=== PATIENT | female | born 1945 | race Two or more races ===

== ENCOUNTER → 2016-09-19 | Outpatient (CLI) | payer MEDICARE, MEDICAID ==
--- NOTE | 2016-09-19 16:59 | DIREP ---
PROCEDURE:Digital Screening Mammogram TECHNIQUE:MLO, CC, and cleavage digital images of each breast are provided. Computer Assisted Detection (CAD) was utilized. COMPARISON:[facility], , DIGITAL MAMMO SCREENING, 03/13/2012, 01:27 PM. INDICATIONS:SCREENING BREAST COMPOSITION:There are scattered areas of fibroglandular density. FINDINGS:There are no grouped microcalcifications, masses, or architectural distortions to suggest malignancy. There is no significant change as compared with the previous examination(s). IMPRESSION:No mammographic evidence of malignancy. RECOMMENDATIONS:Routine Screening Mammography per [employer] [place] [employer] guidelines. OVERALL FINAL ASSESSMENT:BI-RADS 1 - Negative Mammogram Note: This facility participates in a mammography screening patient reminder system. Dictated by: Calixto Ayala M.D. on 09/19/2016 at 04:58 PM
== END | disposition home or self-care (01) ==
LOC: RAD 15:00
PROVIDERS: ATTEND Family Medicine
DX: Z12.31 Encounter for screening mammogram for malignant neoplasm of breast (principal)
CPT/HCPCS: G0202; 77067

== ENCOUNTER → 2017-04-20 | Outpatient (CLI) | payer MEDICARE, MEDICAID | END | disposition home or self-care (01) | LOC: LAB 12:30 | PROVIDERS: ATTEND Internal Medicine Cardiovascular Disease | DX: I48.0 Paroxysmal atrial fibrillation (principal); E78.2 Mixed hyperlipidemia; I20.8 Other forms of angina pectoris | CPT/HCPCS: 36415; 80061 ==

== ENCOUNTER 2017-05-08 17:23 | Emergency (ER) | payer MEDICARE, MEDICAID ==
[~2017-05-08] VITALS: Ht 149.9 cm; Wt 95.3 kg
[2017-05-08] MEDS ORDERED: ASPIRIN ONE (17:48)
--- NOTE | 2017-05-08 17:48 | PCM.EKG ---
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
[2017-05-08] MEDS ORDERED: ASPIRIN PO PRN (18:00)
--- NOTE | 2017-05-08 18:05 | DIREP ---
PROCEDURE:CHEST 1 VIEW COMPARISON:[facility], CR, XRAY CHEST 2 VWS, 01/13/2016, 12:54 PM. [facility], CR, XRAY ACUTE ABD INCL UPRIGHT CHEST, 07/21/2015, 03:42 PM. INDICATIONS:CHEST PAIN FINDINGS: LUNGS/PLEURA:No significant pulmonary parenchymal abnormalities. No effusions. VASCULATURE:Normal. Unremarkable pulmonary vasculature. CARDIAC:Normal. No cardiac silhouette abnormality or cardiomegaly. MEDIASTINUM:Normal. No visible mass or adenopathy. BONES:Normal. No fracture or visible bony lesion. OTHER:EKG leads overlie the chest. CONCLUSION:No acute cardiopulmonary abnormalities. Dictated by: Eron Stark M.D. on 05/08/2017 at 06:03 PM
[2017-05-08 18:18] LABS: BASOPHIL % 0.4 % (0.0-0.2); EOSINOPHIL # 0.3 10^3/uL (0.0-0.2); EOSINOPHIL % 3.8 % (0.0-5.0); HEMOGLOBIN 12.9 g/dL (12.0-15.0); LYMPHOCYTES # 2.2 10^3/uL (1.0-4.8); LYMPHOCYTES % 30.7 % (24.0-44.0); MEAN CELL HGB CONCENTRATION 31.9 g/dL (33-37); MEAN CORP VOLUME 87.6 fL (78-100); MEAN PLATELET VOLUME 10.2 fL (7.8-11.0); MONOCYTES # 0.6 10^3/uL (0.3-0.8); MONOCYTES % 8.2 % (5.0-12.0); NEUTROPHILS % 56.8 % (41.0-85.0); RED CELL DISTRIBUTION WIDTH 14.9 % (11.5-14.5); WHITE BLOOD CELL 7.1 10^3/uL (4.5-11.0)
--- NOTE | 2017-05-08 18:40 | NUR ---
PT WANTED TO UPDATE ER STAFF THAT SHE WAS HAVING CHEST PAIN, CP CONCERNS DISCUSSED. STATES IT IS THE SAME WHEN SHE CAME TO THE ER AND RATES THE PAIN AT ONE ON A SCALE OF ZERO TO TEN.
[2017-05-08 18:56] LABS: CARBON DIOXIDE 29.1 mmol/L (20.0-32); GLUCOSE 152 mg/dL (70-110)
[2017-05-08 18:57] LABS: ALANINE AMINOTRANSFERASE(ML) 46 U/L (12-78); ALKALINE PHOSPHATASE 95 U/L (50-136); ASPARTATE AMINO TRANSFERASE 31 U/L (0-35); CALCIUM 9.5 mg/dL (8.4-10.5)
--- NOTE | 2017-05-08 19:30 | NUR ---
STATUS PT RESTING, SPOUSE AT BEDSIDE.
--- NOTE | 2017-05-08 20:28 | NUR ---
STATUS DR JACQUES UPDATED ON PT'S STATUS
--- NOTE | 2017-05-08 20:35 | NUR ---
DR JACQUES WITH PT
--- NOTE | 2017-05-08 20:47 | NUR ---
PLAN OF CARE DR JACQUES STATED HE PLANS TO DISCHARGE PATIENT HOME.
--- NOTE | 2017-05-08 20:52 | NUR ---
PT VERBALIZED UNDERSTANDING OF DISCHARGE PLAN, PT AMBULATED TO AND FROM THE BATHROOM WITHOUT DIFFICULTY.
--- NOTE | 2017-05-08 20:59 | NUR ---
OK TO DISCHARGE PT PER DR JACQUES.
--- NOTE | 2017-05-08 21:06 | NUR ---
DISCHARGE DISCHARGE INSTRUCTIONS DISCUSSED. PT VERBALIZED UNDERSTANDING. ENCOURAGED TO RETURN FOR ANY CONCERNS. HOME WITH HER SPOUSE.
[2017-05-08 21:13] VITALS: BP 156/89
--- NOTE | 2017-05-11 09:37 | ER.PDOC ---
General Chief Complaint: Chest Pain-Cardiac Nature Stated Complaint: CHEST PAINS,SOB Time seen by MD: 20:35 Source: patient, family Exam Limitations: no limitations History of Present Illness Timing/Duration: 1-3 hours Severity/Quality: mild Radiation: no radiation Activities at Onset: none Prior CP/Workup: Cardiac Cath Aspirin Today: No Aspirin Today Associated Symptoms: denies symptoms Prior symptoms/Treatment: Similar symptoms previous Allergies: Coded Allergies: No Known Allergies (Unverified , 02/06/17) Past Medical History Medical History: angina, arrhythmia, cardiac problems, diabetes, fibromyalgia, hypertension, thyroid disease Surgical History: appendectomy, back, hysterectomy LMP (females 10-50): postmenopause Social History Smoking: non-smoker Alcohol Use: none Drug Use: none Constitutional: no symptoms reported EENTM: no symptoms reported Respiratory: shortness of breath Cardiovascular: chest pain Gastrointestinal: no symptoms reported Genitourinary: no symptoms reported Musculoskeletal: no symptoms reported Skin: no symptoms reported Psychiatric/Neurological: no symptoms reported Endocrine: no symptoms reported Hematologic/Lymphatic: no symptoms reported Physical Exam General Appearance: No Apparent Distress HEENT: PERRL/EOMI, Normal ENT Inspection, TMs Normal, Pharynx Normal Neck: Non-Tender, Full Range of Motion, Supple, Normal Inspection Respiratory: chest non-tender, lungs clear, normal breath sounds, no respiratory distress, no accessory muscle use Cardiovascular: Normal Peripheral Pulses, Regular Rate, Rhythm, No Edema, No Gallop, No JVD, No Murmur Gastrointestinal: Normal Bowel Sounds, No Organomegaly, No Pulsatile Mass, Non Tender Extremities: Normal Range of Motion, Non-Tender, Normal Inspection, No Pedal Edema, No Calf Tenderness, Normal Capillary Refill 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: 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 NML as Tested, No Motor/Sensory Deficits, Alert, Normal Mood/Affect, Oriented x 3 Skin: Normal Color, Warm/Dry Lymphatic: No Adenopathy #2 EKG: NSR, nonspecific ST T wave chg #2 XRAY: chest (no acute cardiopulmonary abnormality.) Departure Time of Disposition: 21:00 Disposition: 01 HOME, SELF-CARE Impression: Primary Impression: Chest pain Condition: Stable Patient Instructions: Chest Pain (Nonspecific), [id number] Referrals: SHOSHANA GALDAMEZ ASSISTANT STORE MANAGER SALES (PCP) PRIMARY CARE PROVIDER Additional Instructions: IN ER YOU WERE EXAMINED BY THE ER PHYSICIAN LABS: D-DIMER, CBC, CMP, CK, CKMB, TROPONIN, PBNP, PT, PTT, HPYLORI EKG MEDICATION: ASPIRIN 325MG BY MOUTH XRAY: CHEST AT HOME: CALL YOUR LEAD PROGRAMMER ANALYST IN THE A.M. TO ARRANGE FOLLOWUP FOLLOWUP WITH YOUR DOCTOR RETURN TO THE ER FOR ANY CONCERNS Duration or Time Spent with Pa: 45mins JOHN JACQUES MD May 11, 2017 09:36
== END 2017-05-08 21:06 | disposition home or self-care (01) ==
LOC: ER 17:23
DX: R07.9 Chest pain, unspecified (principal); R06.02 Shortness of breath; E07.9 Disorder of thyroid, unspecified; E11.9 Type 2 diabetes mellitus without complications; I10 Essential (primary) hypertension; M79.7 Fibromyalgia; Z79.82 Long term (current) use of aspirin; Z90.710 Acquired absence of both cervix and uterus
CPT/HCPCS: 36415; 71010; 80053; 82550; 82553; 83880; 84484; 85025; 85379; 85610; 85730; 86677; 93005; 99285

== ENCOUNTER 2017-08-27 14:48 | Emergency (ER) | payer MEDICARE, MEDICAID ==
[~2017-08-27] VITALS: Ht 149.9 cm; Wt 90.7 kg
[2017-08-27 14:53] VITALS: BP 116/63
[2017-08-27] MEDS ORDERED: NITROSTAT SL STA (14:54)
--- NOTE | 2017-08-27 14:56 | PCM.EKG ---
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
[2017-08-27] MEDS ORDERED: ASPIRIN ONE (14:59)
[2017-08-27] MEDS ORDERED: ASPIRIN PO PRN (15:00)
[2017-08-27 15:05] LABS: BASOPHIL % 0.4 % (0.0-0.2); EOSINOPHIL # 0.3 10^3/uL (0.0-0.2); EOSINOPHIL % 4.3 % (0.0-5.0); HEMOGLOBIN 13.4 g/dL (12.0-15.0); LYMPHOCYTES # 2.7 10^3/uL (1.0-4.8); LYMPHOCYTES % 36.6 % (24.0-44.0); MEAN CELL HGB 29.6 pg (26-34); MEAN CELL HGB CONCENTRATION 33.3 g/dL (33-37); MEAN PLATELET VOLUME 10.5 fL (7.8-11.0); MONOCYTES # 0.5 10^3/uL (0.3-0.8); MONOCYTES % 7.3 % (5.0-12.0); NEUTROPHIL # 3.7 10^3/uL (1.8-7.7); NEUTROPHILS % 51.4 % (41.0-85.0); RED CELL DISTRIBUTION WIDTH 14.3 % (11.5-14.5); WHITE BLOOD CELL 7.3 10^3/uL (4.5-11.0)
--- NOTE | 2017-08-27 15:12 | DIREP ---
PROCEDURE:CHEST 1 VIEW COMPARISON:[facility], CR, XRAY CHEST SINGLE VW, 05/08/2017, 05:43 PM. INDICATIONS:cp FINDINGS: LUNGS/PLEURA:No significant pulmonary parenchymal abnormalities. No effusions. Slightly shallow expansion of the lungs. The lungs are clear. No pneumonia, heart failure or effusions are seen. VASCULATURE:Normal. Unremarkable pulmonary vasculature. CARDIAC:Normal. No cardiac silhouette abnormality or cardiomegaly. Aorta is tortuous. MEDIASTINUM:Normal. No visible mass or adenopathy. BONES:Normal. No fracture or visible bony lesion. OTHER:Elevated right hemidiaphragm, question eventration. CONCLUSION:Shallow expansion of the lungs, no active disease. Dictated by: Checo Liang MD on 08/27/2017 at 03:10 PM
[2017-08-27 15:31] LABS: ALANINE AMINOTRANSFERASE(ML) 60 U/L (12-78); ALKALINE PHOSPHATASE 95 U/L (50-136); ASPARTATE AMINO TRANSFERASE 53 U/L (0-35); CALCIUM 8.7 mg/dL (8.4-10.5); GLUCOSE 331 mg/dL (70-110)
--- NOTE | 2017-08-27 15:35 | ER.PDOC ---
General Chief Complaint: Chest Pain-Cardiac Nature Stated Complaint: CHEST PAIN Time seen by MD: 15:33 Source: patient History of Present Illness Timing/Duration: 24 hours Severity/Quality: mild, moderate Radiation: jaw, arms, neck Activities at Onset: none Prior CP/Workup: no Prior Cardiac Workup, Cardiac Cath (5 MONTHS AGO) Nitro Today/Relief: 0.4 mg x 2 Aspirin Today: No Aspirin Today Associated Symptoms: denies symptoms Prior symptoms/Treatment: Similar symptoms previous Allergies: Coded Allergies: No Known Allergies (Unverified , 02/06/17) Past Medical History Medical History: angina, arrhythmia, diabetes, fibromyalgia, GERD, high cholesterol, hypertension, thyroid disease Surgical History: cardiac cath, back, cholecystectomy, gastric bypass, hysterectomy, other LMP (females 10-50): hysterectomy Social History Smoking: non-smoker Alcohol Use: none Drug Use: none Reviewed Nursing Reviewed: Vital Signs, Abn. Noted All Other Systems: Reviewed and Negative Physical Exam General Appearance: No Apparent Distress, WD/WN HEENT: PERRL/EOMI, Normal ENT Inspection, TMs Normal, Pharynx Normal Neck: Non-Tender, Full Range of Motion, Supple, Normal Inspection Respiratory: chest non-tender, lungs clear, normal breath sounds, no respiratory distress, no accessory muscle use Cardiovascular: Normal Peripheral Pulses, Regular Rate, Rhythm, No Edema, No Gallop, No JVD, No Murmur Gastrointestinal: Normal Bowel Sounds, No Organomegaly, No Pulsatile Mass, Non Tender, Soft Extremities: Normal Range of Motion, Non-Tender, Normal Inspection, No Pedal Edema, No Calf Tenderness, Normal Capillary Refill 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, No Motor/Sensory Deficits, Alert, Normal Mood/Affect, Oriented x 3 Skin: Normal Color, Warm/Dry Lymphatic: No Adenopathy Results/Orders Results/Orders Laboratory Tests Test 08/27/17 15:00 White Blood Count 7.3 10^3/uL (4.5-11.0) Red Blood Count 4.53 10^6/uL (4.00-5.20) Hemoglobin 13.4 g/dL (12.0-15.0) Hematocrit 40.3 % (36.0-46.0) Mean Corpuscular Volume 89.0 fL (78-100) Mean Corpuscular Hemoglobin 29.6 pg (26-34) Mean Corpuscular Hemoglobin Concent 33.3 g/dL (33-37) Red Cell Distribution Width 14.3 % (11.5-14.5) Platelet Count 247 10^3/uL (150-400) Mean Platelet Volume 10.5 fL (7.8-11.0) Neutrophils (%) (Auto) 51.4 % (41.0-85.0) Lymphocytes (%) (Auto) 36.6 % (24.0-44.0) Monocytes (%) (Auto) 7.3 % (5.0-12.0) Neutrophils # (Auto) 3.7 10^3/uL (1.8-7.7) Lymphocytes # (Auto) 2.7 10^3/uL (1.0-4.8) Monocytes # (Auto) 0.5 10^3/uL (0.3-0.8) Absolute Immature Granulocyte (auto 0 10^3 u/L (0-2) Eosinophils % 4.3 % (0.0-5.0) Basophils % 0.4 % (0.0-0.2) Basophils # 0.0 10^3/uL (0.0-0.1) Eosinophil Count 0.3 10^3/uL (0.0-0.2) Percent Immature Gran (Cell Imm) 0.00 % (0.00-0.50) Helicobacter pylori Screen NEGATIVE (NEGATIVE) Administered Medications Medications (Trade) Dose Ordered Sig/Keith Route PRN Reason Start Time Stop Time Status Last Admin Dose Admin Aspirin (Aspirin) 325 mg DAILY PRN PO CHEST PAIN 08/27/17 15:00 09/26/17 14:59 08/27/17 15:03 Nitroglycerin (Nitrostat) 0.4 mg STAT STAT SL 08/27/17 14:54 08/27/17 15:06 DC 08/27/17 15:03 Progress Progress ADMISSION , OBSERVATION OFFERED, PATIENT OPTED TO GO HOME NORMAL CORONARIES IN MAR [address] HINES EKG/XRAY/CT/US EKG: NSR, nonspecific ST T wave chg XRAY: chest Consult/PCP Time Consult/PCP Called: 16:33 Consult/PCP: DR HINES Departure Time of Disposition: 16:33 Disposition: 01 HOME, SELF-CARE Impression: Primary Impression: Chest pain Condition: Stable Referrals: SHOSHANA GALDAMEZ CASE MANAGERS (PCP) PRIMARY CARE PROVIDER Duration or Time Spent with Pa: 2 HRS MARJAN VÁSQUEZ MD Aug 27, 2017 15:35
--- NOTE | 2017-08-27 15:53 | NUR ---
DR FLORA VÁSQUEZ ON PHONE WITH DR HINES OFFICE
--- NOTE | 2017-08-27 16:17 | NUR ---
MEGAN VÁSQUEZ ON PHONE AGAIN WITH MEGAN
[2017-08-27 16:48] VITALS: BP 126/66
== END 2017-08-27 16:48 | disposition home or self-care (01) ==
LOC: ER 14:48
DX: R07.9 Chest pain, unspecified (principal); E11.9 Type 2 diabetes mellitus without complications; E07.9 Disorder of thyroid, unspecified; E78.00 Pure hypercholesterolemia, unspecified; I10 Essential (primary) hypertension; K21.9 Gastro-esophageal reflux disease without esophagitis; M79.7 Fibromyalgia; Z79.82 Long term (current) use of aspirin; Z90.49 Acquired absence of other specified parts of digestive tract; Z90.710 Acquired absence of both cervix and uterus; Z98.84 Bariatric surgery status; Z95.818 Presence of other cardiac implants and grafts
CPT/HCPCS: 36415; 71045; 80053; 82550; 82553; 83880; 84484; 85025; 85379; 85610; 85730; 86677; 93005; 99285

== ENCOUNTER → 2017-09-04 | Outpatient (CLI) | payer MEDICARE, MEDICAID ==
--- NOTE | 2017-09-04 15:50 | DIREP ---
PROCEDURE:CT ABDOMEN W/O COMPARISON:[facility], CT, CT ABD/PELVIS W&W/O, 07/13/2014, 09:23 AM. [facility], CT, CTA PE CHEST W/O PELVIS & LEGS, 05/11/2017, 02:17 PM. 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 No oral contrast was administered. Sagittal and coronal reconstructions were performed from source images. FINDINGS: LUNG BASES:Moderate dependent atelectasis LIVER:Hepatic steatosis. Limited assessment without intravenous contrast but there are rounded lesions in the right lobe of the liver just below the right hemidiaphragm which may be related to sparing of fatty infiltration or true underlying lesions within the hepatic parenchyma. One measures 2 cm and is retrospectively visible on prior study, increased in size. The other measures 3.1 cm and not is not definitely seen on prior study, may be related to fatty sparing. BILIARY:Cholecystectomy, no intra or extrahepatic biliary dilation. PANCREAS:Unremarkable, atrophic changes. SPLEEN:Normal, nonenlarged. KIDNEYS:No renal mass on noncontrast exam. No hydronephrosis or collecting system stone identified. ADRENALS:Normal. AORTA/VASCULAR:There are a few flecks of calcified atherosclerotic disease noted in within the aortoiliac distribution. The descending thoracic aorta measures 2.4 cm. The infrarenal abdominal aorta measures 2.1 cm. The inferior abdominal aorta just above the aortic bifurcation measures 1.7 cm.. No ectasia, no aneurysm. RETROPERITONEUM:No adenopathy or mass. BOWEL/MESENTERY:Suture along the greater curvature of the stomach. No evidence of obstruction in the abdomen. Moderate stool burden. ABDOMINAL WALL:Unremarkable in the abdomen. BONES:No bony lesion or fracture. Degenerative changes in the visualized lumbar spine. OTHER:No free air or fluid. CONCLUSION: 1. Hepatic steatosis. Few rounded lesions in the liver, recommend MRI abdomen with opposed phase imaging and contrast for further characterization. Dictated by: Emani Beard MD on 09/04/2017 at 03:41 PM
== END | disposition home or self-care (01) ==
LOC: CT 14:00
PROVIDERS: ATTEND Nurse Practitioner Family
DX: I77.811 Abdominal aortic ectasia (principal); K76.0 Fatty (change of) liver, not elsewhere classified
CPT/HCPCS: 74150

== ENCOUNTER → 2017-09-20 | Outpatient (CLI) | payer MEDICARE, MEDICAID ==
--- NOTE | 2017-09-20 16:21 | DIREP ---
PROCEDURE:MRI L SPINE W O CONTRAST TECHNIQUE:Multiplanar MR images of the lumbar spine were obtained without contrast. COMPARISON:[facility], CT, CT ABDOMEN W/O, 09/04/2017, 02:22 PM. [facility], CR, XRAY SPINE LUMBAR 2-3 VWS, 07/11/2017, 10:30 AM. [facility], MR, MRI SPINE LUMBAR W/O, 02/03/2016, 03:54 PM. INDICATIONS:M46.44 FINDINGS: ALIGNMENT:Normal. VERTEBRA:Again there is metal artifact on the right L4-5 disc and pedicle level obscuring a large portion of the spinal canal and right-sided neural foramen. CORD/CAUDA EQUINA:Normal size, contour, and signal intensity. PARASPINAL AREA:Normal with no visible mass. OTHER:None. LUMBAR DISC LEVELS T12-L1:No significant disc/facet abnormality, spinal stenosis, or foraminal stenosis. L1-L2:No significant disc/facet abnormality, spinal stenosis, or foraminal stenosis. L2-L3:Trace disc bulge without spinal canal or neural foraminal narrowing. L3-L4:Broad-based disc bulge causes [id number] bilateral neural foraminal narrowing, left greater than right. There is also mild spinal canal narrowing. L4-L5:Metal artifact limits evaluation of the right neural foramina and of the spinal canal. There is probably moderate left neural foraminal narrowing and mild spinal canal narrowing. L5-S1:Trace disc bulge moderate disc height loss and facet hypertrophy with mild to moderate left neural foraminal narrowing. Evaluation of the right neural foramina is limited due to metal artifact. CONCLUSION: 1. Overall no significant change from the prior MRI. 2. Metal artifact limits evaluation of the right L4-L5 at L5-S1 spinal canal and neural foramina. 3. Mild L4-L5 Spinal canal narrowing and moderate left neural foraminal narrowing. 4. Moderate disc height loss of L5-S1. Mild to moderate disc height loss of L4-L5. Other stable findings as above. Dictated by: Calixto Dhaliwal MD on 09/20/2017 at 04:12 PM
--- NOTE | 2017-09-20 16:40 | DIREP ---
PROCEDURE:MRI SPINE THORACIC W/O COMPARISON:None. INDICATIONS:M46.44 TECHNIQUE:A variety of imaging planes and parameters were utilized for visualization of suspected pathology. Images were performed without contrast. FINDINGS: SPINAL CORD/CONUS:Normal. ALIGNMENT:There is trace levoscoliosis of the upper thoracic spine.. DISCS:Disc height is appropriate for the patient's age. There is right facet hypertrophy at T2-T3, T3-4, T4-5, T5-6 , and T6-7, causing mild multi-level neural foraminal narrowing. VERTEBRAE:Normal. PARASPINAL AREA:Normal. CONCLUSION:Trace levoscoliosis of the upper thoracic spine . Multilevel right sided facet hypertrophy at T2 through T7 causing mild multilevel right neural foraminal narrowing. Dictated by: Calixto Dhaliwal MD on 09/20/2017 at 04:34 PM
== END | disposition home or self-care (01) ==
LOC: RAD 13:28
PROVIDERS: ATTEND Nurse Practitioner Family
DX: M46.44 Discitis, unspecified, thoracic region (principal); M48.061 Spinal stenosis, lumbar region without neurogenic claudication; M48.04 Spinal stenosis, thoracic region
CPT/HCPCS: 72146; 72148

== ENCOUNTER 2017-11-23 09:03 | Emergency (ER) | payer MEDICARE, MEDICAID ==
[~2017-11-23] VITALS: Ht 139.7 cm; Wt 90.7 kg
--- NOTE | 2017-11-23 09:03 | NUR ---
ARRIVED PT ARRIVED VIA EMS FROM HOME C/O CP THAT STARTED THIS AM WHEN GOT UP TO BATH AND GET READY FOR DAY, AWAKE, ALERT, ORIENTED X3. PT DENY PAIN AT THIS TIME ONLY HAVING MID STERNAL PRESSURE AT THIS TIME. PT TOOK ONE NITRO AT HOME AND EMS GAVE PT ASA 324MG.
--- NOTE | 2017-11-23 09:05 | NUR ---
EKG RESP AT BEDSIDE FOR EKG
[2017-11-23 09:12] VITALS: BP 133/76
--- NOTE | 2017-11-23 09:14 | PCM.EKG ---
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
--- NOTE | 2017-11-23 09:16 | ER.PDOC ---
General Chief Complaint: Chest Pain-Cardiac Nature Stated Complaint: CP Time seen by MD: 09:05 Source: patient, EMS Exam Limitations: no limitations History of Present Illness Initial Comments Pt started this morning at 6, while taking a shower, to have CP on midsternal region, no radiation, nausea and SOB, pain subsided now, SOB still persists, took nitro and aspirin Timing/Duration: 1-3 hours Severity/Quality: severe, pressure, sharp Radiation: no radiation Activities at Onset: none Prior CP/Workup: No Prior Chest Pain, Cardiac Cath Modifying Factors: nitroglycerin Nitro Today/Relief: 0.4 mg x 2 Aspirin Today: 81 mg x 4, Provided By EMS Associated Symptoms: shortness of breath Allergies: Coded Allergies: No Known Allergies (Unverified , 02/06/17) Past Medical History Surgical History: cardiac cath, back, cholecystectomy, gastric bypass, hysterectomy, other Social History Drug Use: none Constitutional: no symptoms reported EENTM: no symptoms reported Respiratory: shortness of breath Cardiovascular: chest pain Gastrointestinal: nausea Genitourinary: no symptoms reported Musculoskeletal: no symptoms reported Skin: no symptoms reported Psychiatric/Neurological: no symptoms reported Endocrine: no symptoms reported Hematologic/Lymphatic: no symptoms reported Physical Exam General Appearance: No Apparent Distress, WD/WN HEENT: PERRL/EOMI, Normal ENT Inspection, TMs Normal, Pharynx Normal Neck: Non-Tender, Full Range of Motion, Supple, Normal Inspection Respiratory: chest non-tender, lungs clear, normal breath sounds, no respiratory distress, no accessory muscle use Cardiovascular: Normal Peripheral Pulses, Regular Rate, Rhythm, No Edema, No Gallop, No JVD, No Murmur Gastrointestinal: Normal Bowel Sounds, No Organomegaly, No Pulsatile Mass, Non Tender, Soft Extremities: Normal Range of Motion, Non-Tender, Normal Inspection, No Pedal Edema, No Calf Tenderness, Normal Capillary Refill 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
[2017-11-23] MEDS ORDERED: NITROSTAT SL ONE (09:19)
[2017-11-23 09:27] LABS: BASOPHIL % 0.6 % (0.0-0.2); EOSINOPHIL # 0.3 10^3/uL (0.0-0.2); EOSINOPHIL % 4.3 % (0.0-5.0); HEMOGLOBIN 13.5 g/dL (12.0-15.0); LYMPHOCYTES # 3.1 10^3/uL (1.0-4.8); LYMPHOCYTES % 43.1 % (24.0-44.0); MEAN CELL HGB 29.4 pg (26-34); MEAN CELL HGB CONCENTRATION 33.8 g/dL (33-37); MEAN CORP VOLUME 87.1 fL (78-100); MEAN PLATELET VOLUME 10.5 fL (7.8-11.0); MONOCYTES # 0.6 10^3/uL (0.3-0.8); MONOCYTES % 7.7 % (5.0-12.0); NEUTROPHIL # 3.2 10^3/uL (1.8-7.7); NEUTROPHILS % 44.2 % (41.0-85.0); WHITE BLOOD CELL 7.1 10^3/uL (4.5-11.0)
[2017-11-23] MEDS ORDERED: NITROSTAT SL PRN (09:30)
--- NOTE | 2017-11-23 09:38 | DIREP ---
PROCEDURE:CHEST 1 VIEW COMPARISON:[facility], CR, XRAY CHEST SINGLE VW, 08/27/2017, 02:52 PM. INDICATIONS:CP, SOB FINDINGS: LUNGS/PLEURA:No acute infiltrates are seen. Mildly prominent interstitial markings are noted. VASCULATURE:Normal. Unremarkable pulmonary vasculature. CARDIAC:The heart size is borderline. MEDIASTINUM:Normal. No visible mass or adenopathy. BONES:Normal. No fracture or visible bony lesion. OTHER:Negative. CONCLUSION: 1. The heart size is borderline. 2. The lungs appear clear of any acute infiltrate. No pleural effusion is seen. Dictated by: Oziel Donaldson M.D. on 11/23/2017 at 09:36 AM
[2017-11-23 09:54] LABS: ALANINE AMINOTRANSFERASE(ML) 74 U/L (12-78); ALKALINE PHOSPHATASE 90 U/L (50-136); ASPARTATE AMINO TRANSFERASE 67 U/L (0-35); CALCIUM 9.1 mg/dL (8.4-10.5); CARBON DIOXIDE 25.2 mmol/L (20.0-32); GLUCOSE 135 mg/dL (70-110)
[2017-11-23] MEDS ORDERED: ZOFRAN ODT ONE (10:01)
[2017-11-23] MEDS ORDERED: LIDOCAINE VISCOUS ONE (10:02)
[2017-11-23] MEDS ORDERED: ZOFRAN ODT SL STA (10:02)
[2017-11-23] MEDS ORDERED: MYLANTA PO STA (10:02)
[2017-11-23] MEDS ORDERED: LIDOCAINE VISCOUS MM STA (10:02)
[2017-11-23] MEDS ORDERED: BENTYL LIQUID ONE (10:02)
[2017-11-23] MEDS ORDERED: MYLANTA ONE (10:02)
[2017-11-23] MEDS ORDERED: NORCO 5MG PO ONE (10:19)
[2017-11-23] MEDS ORDERED: BENTYL LIQUID PO PRN (10:30)
[2017-11-23] MEDS ORDERED: NORCO 5MG PO PRN (10:30)
[2017-11-23 11:55] VITALS: BP 133/76
== END 2017-11-23 11:57 | disposition home or self-care (01) ==
LOC: ER 09:03 → EDBD 09:03 → ER 11:57
DX: M94.0 Chondrocostal junction syndrome [Tietze] (principal); R11.0 Nausea
CPT/HCPCS: 36415; 71045; 80053; 82550; 82553; 83880; 84484 ×2; 85025; 85610; 85730; 93005; 99285; J3490; Q0162

== ENCOUNTER → 2018-01-03 | Outpatient (CLI) | payer MEDICARE, MEDICAID ==
--- NOTE | 2018-01-03 09:45 | DIREP ---
PROCEDURE:XR ABDOMEN 2 VIEWS COMPARISON:[facility], CT, CT ABDOMEN W/O, 09/04/2017, 02:22 PM. INDICATIONS:LUQ PAIN R10.12 TECHNIQUE:Flat and upright views of the abdomen are provided. FINDINGS: BOWEL GAS PATTERN:The bowel gas pattern is unremarkable. A moderate amount of stool is noted within the colon. Surgical clips are noted in the left upper quadrant of the abdomen which are located along the greater curvature of the stomach on CT scan of 09/04/2017. No pneumatosis or pneumoperitoneum is seen. CALCIFICATIONS:None significant. LUNG BASES:Clear. BONES:Degenerative changes of the lower lumbar spine are noted. OTHER:Surgical clips overlie the left hemipelvis. CONCLUSION: 1. The bowel gas pattern is unremarkable. A moderate amount of stool is noted throughout the colon. Dictated by: Oziel Donaldson M.D. on 01/03/2018 at 09:42 AM
[2018-01-03 09:49] LABS: BASOPHIL % 0.5 % (0.0-0.2); EOSINOPHIL # 0.3 10^3/uL (0.0-0.2); EOSINOPHIL % 5.3 % (0.0-5.0); HEMOGLOBIN 13.4 g/dL (12.0-15.0); LYMPHOCYTES # 2.3 10^3/uL (1.0-4.8); LYMPHOCYTES % 37.6 % (24.0-44.0); MEAN CELL HGB 29.6 pg (26-34); MEAN CELL HGB CONCENTRATION 33.8 g/dL (33-37); MEAN CORP VOLUME 87.6 fL (78-100); MEAN PLATELET VOLUME 11.1 fL (7.8-11.0); MONOCYTES # 0.6 10^3/uL (0.3-0.8); MONOCYTES % 9.9 % (5.0-12.0); NEUTROPHIL # 2.8 10^3/uL (1.8-7.7); NEUTROPHILS % 46.4 % (41.0-85.0); RED CELL DISTRIBUTION WIDTH 13.9 % (11.5-14.5); WHITE BLOOD CELL 6.1 10^3/uL (4.5-11.0)
[2018-01-03 10:24] LABS: CALCIUM 9.6 mg/dL (8.4-10.5); CARBON DIOXIDE 30.9 mmol/L (20.0-32)
== END | disposition home or self-care (01) ==
LOC: LAB 09:02
PROVIDERS: ATTEND Nurse Practitioner Family
DX: R10.12 Left upper quadrant pain (principal); I12.9 Hypertensive chronic kidney disease with stage 1 through stage 4 chronic kidney disease, or unspecified chronic kidney disease; E11.22 Type 2 diabetes mellitus with diabetic chronic kidney disease; N18.4 Chronic kidney disease, stage 4 (severe); E11.40 Type 2 diabetes mellitus with diabetic neuropathy, unspecified; M47.896 Other spondylosis, lumbar region; M17.9 Osteoarthritis of knee, unspecified; E78.00 Pure hypercholesterolemia, unspecified; K21.9 Gastro-esophageal reflux disease without esophagitis; Z90.49 Acquired absence of other specified parts of digestive tract; Z90.710 Acquired absence of both cervix and uterus
CPT/HCPCS: 36415; 74019; 80053; 82150; 83690; 85025; 86140

== ENCOUNTER 2018-09-18 23:00 | Emergency (ER) | payer MEDICARE, MEDICAID ==
[~2018-09-18] VITALS: Ht 152.4 cm; Wt 104.3 kg
[2018-09-18 23:00] VITALS: BP 165/105
--- NOTE | 2018-09-18 23:32 | ER.PDOC ---
General Chief Complaint: Requesting Medical Care Stated Complaint: BACK PAIN TRAVEL OUT OF US: No Time seen by MD: 23:32 Source: patient Exam Limitations: no limitations History of Present Illness Initial Comments 73 Y/O FEMALE WITH HX CHRONIC BACK PAIN X SEVERAL MONTHS, HAS BEEN SEEN BY PRIMARY CARE AND DR RODNEY AND IS SUPPOSED TO BY SEEN BY A PAIN MGMT DR. NO LOSS OF BLADDER OR BOWEL CONTROL, NO CHEST PAIN, NO FEVER, NO ABD PAIN, NO FALL OR RECENT TRAUMA. PATIENT STATES SAME CHRONIC LOW BACK PAIN. TO ED BY EMS, GIVEN FENTANYL 100MCG IN ROUTE, PAIN FROM 8 TO NOW AT 3/10. NO RADIATION OF PAIN. Timing/Duration: getting worse, intermittent, other Severity: severe Modifying Factors: improves with immobilization, improves with medication Associated Symptoms: denies symptoms, cough, shortness of breath Allergies: Coded Allergies: No Known Allergies (Unverified , 02/06/17) Past Medical History Medical History: cardiac problems, diabetes, high cholesterol, hypertension Surgical History: back, cholecystectomy, gastric bypass Family History Significant Family History: no pertinent family hx Social History Smoking: non-smoker Alcohol Use: none Drug Use: none Reviewed Nursing Reviewed: Vital Signs, Abn. Noted, Nursing Assessment Review of Systems Constitutional: no symptoms reported EENTM: no symptoms reported Respiratory: no symptoms reported Cardiovascular: no symptoms reported Gastrointestinal: no symptoms reported Genitourinary: no symptoms reported Musculoskeletal: back pain Skin: no symptoms reported Psychiatric/Neurological: no symptoms reported Hematologic/Lymphatic: no symptoms reported Immunological/Allergic: no symptoms reported Physical Exam General Appearance: WD/WN, Anxious, Moderate Distress, Obese EENT: eyes nml inspection, nml ENT inspection, pharynx nml Neck: Non-Tender, Full Range of Motion, Supple, Normal Inspection Respiratory: chest non-tender, lungs clear, normal breath sounds, no respiratory distress, no accessory muscle use CVS: reg rate & rhythm, no murmur, no gallop, pulses nml Gastrointestinal: Normal Bowel Sounds, No Organomegaly, No Pulsatile Mass, Non Tender Back: Decreased Range Of Motion, Muscle Spasm, Vertebral Tenderness, Other Extremities: Normal Range of Motion, Non-Tender, Normal Inspection, No Pedal Edema, No Calf Tenderness, Normal Capillary Refill 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: electrocardiogram technician II-XII NML as Tested, No Motor/Sensory Deficits, Alert, Normal Mood/Affect, Oriented x 3 Skin: Normal Color, Warm/Dry Lymphatic: No Adenopathy Comments NEG SLR TEST, NO RASH, DTR'S BILAT LOWER EXT KNEE AND ANKLE AT 2+/4+. BOTH LEGS N/V/S INTACT. PATIENT OMBUDSPERSON TO PALP TO L4-L5-S1 AREA. Results/Orders Results/Orders Orders - FELICITA ORELLANA DO Ketorolac Tromethamine (Toradol) (09/18/18 23:53) Methylprednisolone Sod Succ (Solu-Medrol (09/18/18 23:53) Methylprednisolone Sod Succ (Solu-Medrol (09/18/18 23:56) Ketorolac Tromethamine (Toradol) (09/18/18 23:56) Vital Signs Date Time Temp Pulse Resp B/P (MAP) Pulse Ox O2 Delivery O2 Flow Rate FiO2 09/18/18 23:00 98.1 66 22 90 Room Air 98.1 09/18/18 23:00 98.1 66 22 98.1 Administered Medications Medications (Trade) Dose Ordered Sig/Keith Route PRN Reason Start Time Stop Time Status Last Admin Dose Admin Ketorolac Tromethamine (Toradol) 30 mg STAT STAT IV 09/18/18 23:53 09/18/18 23:54 DC 09/19/18 00:02 30 MG Methylprednisolone Sodium Succinate (Solu-Medrol) 125 mg STAT STAT IV 09/18/18 23:53 09/18/18 23:54 DC 09/19/18 00:02 125 MG Progress Progress 0040 PATIENT STATES SHE FELLS MUCH BETTER AND WANTS TO GO HOME, DIFF DX IN DETAIL, FOLLOW UP WITH YOUR REECE.. Departure Time of Disposition: 00:28 Disposition: 01 HOME, SELF-CARE Impression: Primary Impression: Back pain Condition: Stable Patient Instructions: Back Pain, Adult Referrals: SHOSHANA GALDAMEZ DUCT LAYER SUPERVISOR (PCP) PRIMARY CARE PROVIDER Additional Instructions: TO ED NEEDED OR IF WORSE, FOLLOW UP WITH YOUR DR'S, ICE TO LOW BACK X5-7 DAYS, RX PREDNISONE, WATCH BLOOD SUGAR ON STEROIDS. Duration or Time Spent with Pa: 30 MIN FELICITA ORELLANA DO September 18, 2018 23:32
[2018-09-18] MEDS ORDERED: SOLU-MEDROL IV STA (23:53)
[2018-09-18] MEDS ORDERED: TORADOL IV STA (23:53)
[2018-09-18] MEDS ORDERED: TORADOL ONE (23:56)
[2018-09-18] MEDS ORDERED: SOLU-MEDROL ONE (23:56)
[2018-09-19 00:52] VITALS: BP 162/98
[2018-09-19 01:00] VITALS: BP 162/98
== END 2018-09-19 00:57 | disposition home or self-care (01) ==
LOC: ER 23:00 → EDBD 23:00 → ER 09-19 00:57
DX: M54.9 Dorsalgia, unspecified (principal); R05 Cough; R06.02 Shortness of breath; E11.9 Type 2 diabetes mellitus without complications; E78.00 Pure hypercholesterolemia, unspecified; I10 Essential (primary) hypertension; Z90.49 Acquired absence of other specified parts of digestive tract; Z98.84 Bariatric surgery status
CPT/HCPCS: 96372; 99284; J1885; J2930

== ENCOUNTER → 2018-11-12 | Outpatient (CLI) | payer MEDICARE, MEDICAID | END | disposition home or self-care (01) | LOC: LAB 14:21 | PROVIDERS: ATTEND Nurse Practitioner Adult Health | DX: N39.0 Urinary tract infection, site not specified (principal) | CPT/HCPCS: 87086 ==

== ENCOUNTER 2018-11-13 09:52 | Emergency (ER) | payer MEDICARE, MEDICAID ==
[~2018-11-13] VITALS: Ht 149.9 cm; Wt 89.4 kg
[2018-11-13] MEDS ORDERED: BENADRYL IM STA (10:08)
[2018-11-13] MEDS ORDERED: SOLU-MEDROL IV STA (10:08)
[2018-11-13] MEDS ORDERED: PEPCID IV STA (10:08)
--- NOTE | 2018-11-13 10:16 | ER.PDOC ---
General Chief Complaint: Requesting Medical Care Stated Complaint: allegric reaction Time seen by MD: 10:04 Source: patient Exam Limitations: no limitations History of Present Illness Initial Comments Pt reports that around 7am, about an hour after she took Cipro, she began to feel like her throat was dry and swelling. C/o some chest discomfort, like an ac he, and some LAY as well. Cipro is a new med, unsure if she's taken it in the past. Associated Symptoms: throat swollen, mild SOB Context: Pt states chest pain and other symptoms feel different than her angina Identified Cause: possibly (Cipro) Exposure: antibiotic Prior symptoms/Treatment: No Similar symptoms previous, No Recenly Seen Allergies: Coded Allergies: No Known Allergies (Unverified , 02/06/17) Past Medical History Medical History: other (a-fib, angina) Surgical History: back, cholecystectomy, gastric bypass Family History Significant Family History: no pertinent family hx Social History Drug Use: none Constitutional: no symptoms reported EENTM: see HPI Respiratory: see HPI; denies cough, denies orthopnea; shortness of breath; denies SOB with exertion, denies stridor, denies wheezing Cardiovascular: denies edema, denies irregular heart rate, denies lightheadedness, denies palpitations, denies syncope Gastrointestinal: no symptoms reported Genitourinary: no symptoms reported Musculoskeletal: no symptoms reported Skin: no symptoms reported; denies rash Psychiatric/Neurological: no symptoms reported All Other Systems: Reviewed and Negative Physical Exam General Appearance: alert HEENT: ENT nml inspection, voice nml Skin: no rash, nml color, warm/dry Extremities: non-tender, nml ROM, no edema Neck: nml inspection Respiratory: no resp. distress, breath sounds nml CVS: reg. rate & rhythm, heart sounds nml Abdomen: non-tender, no organomegaly NEURO/PSYCH: oriented x 3, CN's nml as tested, motor nml, sensation nml Progress Progress CXR findings: FINDINGS: LUNGS/PLEURA:No significant pulmonary parenchymal abnormalities. No effusions. VASCULATURE:Mild pulmonary vascular congestion. CARDIAC:Borderline cardiomegaly. Tortuosity of the thoracic aorta. MEDIASTINUM:Normal. No visible mass or adenopathy. BONES:No acute pathology. Mild DJD of both AC joints. Minimal levoscoliosis of the T-spine. OTHER:Negative. CONCLUSION:Mild cardiomegaly and pulmonary vascular congestion. No evidence of pulmonary alveolar edema, pleural effusion, or pulmonary consolidation. Pt feels better after meds, cardiac w/u is normal. Will have her f/u with PMD, will change Rx to Macrobid for UTI diagnosed yesterday. EKG/XRAY/CT/US EKG: NSR EKG Comments: borderline LAD, no ST elevations or ischemic changes XRAY: chest XRAY Comments: CM, no acute process Departure Time of Disposition: 12:37 Disposition: 01 HOME, SELF-CARE Impression: Primary Impression: Allergic reaction caused by a drug Condition: Stable Referrals: SHOSHANA GALDAMEZ PROPOSAL SPECIALIST (PCP) PRIMARY CARE PROVIDER Duration or Time Spent with Pa: 25 Problem Qualifiers Primary Impression: Allergic reaction caused by a drug Encounter type: initial encounter Qualified Codes: T78.40XA - Allergy, unspecified, initial encounter ISRAEL TYSON DO Nov 13, 2018 10:16
[2018-11-13 10:22] LABS: BASOPHIL % 0.3 % (0.0-0.2); EOSINOPHIL # 0.3 10^3/uL (0.0-0.2); EOSINOPHIL % 4.1 % (0.0-5.0); HEMOGLOBIN 13.8 g/dL (12.0-15.0); LYMPHOCYTES # 2.6 10^3/uL (1.0-4.8); LYMPHOCYTES % 42.2 % (24.0-44.0); MEAN CELL HGB 29.2 pg (26-34); MEAN CELL HGB CONCENTRATION 34.2 g/dL (33-37); MEAN CORP VOLUME 85.4 fL (78-100); MEAN PLATELET VOLUME 10.4 fL (7.8-11.0); MONOCYTES # 0.6 10^3/uL (0.3-0.8); MONOCYTES % 10.1 % (5.0-12.0); NEUTROPHIL # 2.6 10^3/uL (1.8-7.7); NEUTROPHILS % 43.1 % (41.0-85.0); RED CELL DISTRIBUTION WIDTH 15.1 % (11.5-14.5)
--- NOTE | 2018-11-13 10:23 | PCM.EKG ---
[facility] Test Date: 2018-11-13 Test Time: 10:22:33 Pat Name: ERICH LAI Department: Room: Gender: F Vacuum Metalizing Supervisor: MARBELLA : 1945 Requested By: ISRAEL TYSON Order Number: [id number] Reading MD: Israel Tyson Measurements Intervals [place] Rate: 59 P: 81 MA: 202 QRS: -41 QRSD: 110 T: 54 QT: 444 QTc: 439 Interpretive Statements Sinus bradycardia Left axis deviation Nonspecific T wave abnormality Abnormal ECG Compared to ECG 11/23/2017 09:16:49 T-wave abnormality now present Sinus rhythm no longer present ST (T wave) deviation no longer present Possible ischemia no longer present Electronically Signed On 11-13-2018 19:03:58 CDT by Israel Tyson Please click the below link to view image of tracing.
[2018-11-13 10:29] VITALS: BP 138/84
[2018-11-13] MEDS ORDERED: PEPCID IV ONE (10:33)
[2018-11-13] MEDS ORDERED: BENADRYL ONE (10:34)
[2018-11-13] MEDS ORDERED: SOLU-MEDROL ONE (10:34)
--- NOTE | 2018-11-13 10:53 | DIREP ---
PROCEDURE:CHEST 1 VIEW COMPARISON:[facility], CR, XRAY CHEST SINGLE VW, 11/23/2017, 08:56 AM. INDICATIONS:chest pain/dyspnea FINDINGS: LUNGS/PLEURA:No significant pulmonary parenchymal abnormalities. No effusions. VASCULATURE:Mild pulmonary vascular congestion. CARDIAC:Borderline cardiomegaly. Tortuosity of the thoracic aorta. MEDIASTINUM:Normal. No visible mass or adenopathy. BONES:No acute pathology. Mild DJD of both AC joints. Minimal levoscoliosis of the T-spine. OTHER:Negative. CONCLUSION:Mild cardiomegaly and pulmonary vascular congestion. No evidence of pulmonary alveolar edema, pleural effusion, or pulmonary consolidation. Dictated by: Calixto Ayala M.D. on 11/13/2018 at 10:51 AM
[2018-11-13 11:12] LABS: ALANINE AMINOTRANSFERASE(ML) 21 U/L (12-78); ALKALINE PHOSPHATASE 86 U/L (50-136); ASPARTATE AMINO TRANSFERASE 25 U/L (0-35); CALCIUM 9.5 mg/dL (8.4-10.5); GLUCOSE 119 mg/dL (70-110)
[2018-11-13 13:00] VITALS: BP 134/84
--- NOTE | 2018-11-13 13:02 | NUR ---
DISMISSAL PT DISCHARGED FROM ED IN STABLE CONDITION WITH SPOUSE.
[2018-11-13 13:11] VITALS: BP 134/84
== END 2018-11-13 13:02 | disposition home or self-care (01) ==
LOC: ER 09:52
DX: R07.89 Other chest pain (principal); R51 Headache; I48.91 Unspecified atrial fibrillation; T50.905A Adverse effect of unspecified drugs, medicaments and biological substances, initial encounter; Z90.49 Acquired absence of other specified parts of digestive tract; Z98.84 Bariatric surgery status; Y92.89 Other specified places as the place of occurrence of the external cause
CPT/HCPCS: 36415; 71045; 80053; 83880; 84484; 85025; 93005; 96372; 96374; 96375; 99285; J1200; J2930; J3490

== ENCOUNTER 2018-11-14 15:34 | Emergency (ER) | payer MEDICARE, MEDICAID ==
[~2018-11-14] VITALS: Ht 149.9 cm; Wt 89.4 kg
--- NOTE | 2018-11-14 15:45 | NUR ---
ARRIVAL PT TO ED6, [facility] ON, REPORT GIVEN TO EDP.
[2018-11-14 15:58] VITALS: BP 130/77
--- NOTE | 2018-11-14 16:01 | ER.PDOC ---
General Chief Complaint: General Complaint Stated Complaint: HEAD INJURY Time seen by MD: 15:59 Source: patient Exam Limitations: no limitations History of Present Illness Initial Comments Headache S/P fall 1 week ago. She hit her head when she fell. Severity/Quality: moderate Prior Headaches/Recent Trauma: no recent headache/trauma Associated Symptoms: other (headache) Allergies: Coded Allergies: ciprofloxacin (Verified Allergy, Unknown, 11/14/18) Past Medical History Medical History: GERD Surgical History: back, gastric bypass, hysterectomy Social History Smoking: non-smoker Alcohol Use: none Drug Use: none Review of Systems Constitutional: no symptoms reported Respiratory: no symptoms reported Cardiovascular: no symptoms reported Gastrointestinal: no symptoms reported Genitourinary: no symptoms reported All Other Systems: Reviewed and Negative Physical Exam General Appearance: No Apparent Distress, WD/WN Neck: nml inspection, Supple Cardiovascular: Normal Peripheral Pulses, Regular Rate, Rhythm, No Edema, No Gallop, No JVD, No Murmur Respiratory: chest non-tender, lungs clear, normal breath sounds, no respiratory distress, no accessory muscle use Gastrointestinal: Normal Bowel Sounds, No Organomegaly, No Pulsatile Mass, Non Tender, Soft Back: Normal Inspection, No CVA Tenderness, No Vertebral Tenderness Extremities: Normal Range of Motion, Non-Tender, Normal Inspection, No Pedal Edema, No Calf Tenderness, Normal Capillary Refill Psychiatric: Alert, Oriented x 3 Cranial Nerves: Normal Hearing, Normal Speech, PERRL Motor/Sensory: No Motor Deficit, No Sensory Deficit, No Pronator Drift, Negative Babinski's Sign Skin: Warm/Dry, Normal Color Results/Orders Results/Orders Orders - LANA PETE MD Ct Head Wo Contrast (11/14/18 15:57) Vital Signs Date Time Temp Pulse Resp B/P (MAP) Pulse Ox O2 Delivery O2 Flow Rate FiO2 11/14/18 15:58 98.0 64 14 130/77 (94) 94 Room Air 98.0 11/14/18 15:51 64 16 94 Room Air 11/14/18 15:51 98.0 64 14 98.0 11/13/18 13:11 208.2 63 11/13/18 11:11 97.9 EKG/XRAY/CT/US CT Comments: Nothing acute on CT head Course Sepsis Screening Results: Posi: POSITIVE SEPSIS RISK Duration or Total Time Spent w: 25 Vitals & review Data Vital Sign - Last 24 Hours 11/13/18 11/13/18 11/14/18 11/14/18 11:11 13:11 15:51 15:51 Temp 97.9 208.2 98.0 98.0 Pulse 63 64 64 Resp 14 16 Pulse Ox 94 O2 Delivery Room Air 11/14/18 15:58 Temp 98.0 98.0 Pulse 64 Resp 14 B/P (MAP) 130/77 (94) Pulse Ox 94 O2 Delivery Room Air Sepsis Infection Criteria Pres: None O2 Sat by Pulse Oximetry: 94 Departure Time of Disposition: 16:46 Disposition: 01 HOME, SELF-CARE Impression: Primary Impression: Head injury Condition: Stable Referrals: SHOSHANA GALDAMEZ MAPPING SUPERVISOR (PCP) PRIMARY CARE PROVIDER Additional Instructions: Tylenol F/U with PCP in 1 week Duration or Time Spent with Pa: 60 mins Problem Qualifiers Primary Impression: Head injury Encounter type: initial encounter Qualified Codes: S09.90XA - Unspecified injury of head, initial encounter LANA PETE MD Nov 14, 2018 16:01
--- NOTE | 2018-11-14 16:23 | DIREP ---
PROCEDURE:CT HEAD OR BRAIN W/O CONTRAST COMPARISON:None. INDICATIONS:Headache S/P fall TECHNIQUE:CT images were created without intravenous contrast. FINDINGS: VENTRICLES: Unremarkable ventricular size and morphology for the patient's age. CEREBRUM: No apparent mass or mass effect. No acute intracranial hemorrhage or abnormal extra-axial fluid collections. Minimal chronic small vessel ischemic demyelination. No CT evidence to suggest acute large vascular territorial ischemia. CEREBELLUM: Unremarkable for the patient's age. BRAINSTEM: Normal. SKULL: Hyperostosis frontalis interna. SINUSES: No significant paranasal sinus disease OTHER: Intracranial vascular calcifications. CONCLUSION: 1. Senescent changes with minimal chronic small vessel ischemic demyelination. No acute intracranial abnormality is identified. Dictated by: Vic Jose M.D. On 11/14/2018 at 04:18 PM
[2018-11-14 16:55] VITALS: BP 130/77
== END 2018-11-14 16:56 | disposition home or self-care (01) ==
LOC: ER 15:34
DX: S09.90XA Unspecified injury of head, initial encounter (principal); K21.9 Gastro-esophageal reflux disease without esophagitis; Z90.710 Acquired absence of both cervix and uterus; Z98.84 Bariatric surgery status; Z98.890 Other specified postprocedural states; Z88.1 Allergy status to other antibiotic agents; W06.XXXA Fall from bed, initial encounter; Y93.89 Activity, other specified; Y92.89 Other specified places as the place of occurrence of the external cause; Y99.8 Other external cause status
CPT/HCPCS: 70450; 99284

== ENCOUNTER → 2019-01-02 | Outpatient (CLI) | payer MEDICARE, MEDICAID ==
--- NOTE | 2019-01-02 15:35 | DIREP ---
PROCEDURE:XR ABDOMEN 2 VIEWS COMPARISON:None. INDICATIONS:CONSTIPATION, KUB/UPR TECHNIQUE:Flat and upright views of the abdomen are provided. FINDINGS: BOWEL GAS PATTERN:A large fecal burden is noted throughout the colon suggesting that at least some degree of constipation is present. There is no evidence of bowel obstruction or pneumatosis. CALCIFICATIONS:None significant. LUNG BASES:Clear. BONES:Fairly severe degenerative disc disease is noted at the L4/5 level. Mild spondylosis of the thoracic spine is noted. OTHER:No additional findings. CONCLUSION: 1. Large fecal burden most likely associated with constipation. Dictated by: Oziel Donaldson M.D. on 01/02/2019 at 03:33 PM
== END | disposition home or self-care (01) ==
LOC: RAD 14:31
PROVIDERS: ATTEND Nurse Practitioner Family
DX: K59.00 Constipation, unspecified (principal); M51.36 Other intervertebral disc degeneration, lumbar region
CPT/HCPCS: 74019

== ENCOUNTER → 2019-03-12 | Outpatient (CLI) | payer MEDICARE, MEDICAID ==
--- NOTE | 2019-03-13 12:18 | DIET.OP ---
OP DIAB DIETARY CONSULT Date Seen by RD: Mar 12, 2019 Time Started: 14:00 Time Ended Session: 14:45 Calculated TT spent w/ Patient: 45 Reason for Referral (From [place]: DM without complications Is patient needing clearance f: No Pertinent Medical Hx/Surgical: DM type 2 Pertinent Medications Treciba, Trulicity, Centrum MV, Tylenol, Tramadol Does PT take any Supplements/V: Yes Height (Calculated Centimeters: [phone] Current Weight: 200 Usual Weight: 200 %UBW: 100 How long have you had Diabetes: 7 years What Type of Diabetes? (Type: 2 What do you wnat to learn abt? DM diet Current Bld Sugar Management? Insulin plus checking blood sugars twice daily PT believes their blood sugar: Yes Does your Bld Sugar Go Over 20: Yes Do you ever have Bld. Sugar be: No Goals for this Session: Educate the patient on a consistent carbohydrate diet Previous Received Diet Edu? No Current Eating Pattern(s): BLD: Breakfast (eggs, 2 slices of hutchins, sometimes 1 slice of toast), Dinner (Hotdog with fruit), Lunch (Tuna [place], Chicken with mashed potatoes and green beans), Snacks (fruit) PES STATEMENT: PES Statement ____ related to as evidenced by . Education Provided?: Yes Nutrition education given: Choose My Foods: Food List for Diabetes Management Subjective Data: Patient seen for DM diet management. Patient reports that she has had a poor appetite over the past 3-4 days. She currently checks her blood sugar levels twice daily and they run in the high 100s most of the time. She has had blood sugars close to 500 which she has found come mid day. We discussed appropriate blood sugar readings. We discussed that she needs to follow a consistent carbohydrate diet which will help her body regulate her blood sugars more regularly. We discussed the consumption of high fiber foods, along with lean proteins, and healthy fats. Will follow up on 04/09/19 @ 14:00 to make sure the patient is doing well and there are no issues. DM HOPE RD Mar 13, 2019 12:18
== END | disposition home or self-care (01) ==
LOC: DED 13:51
PROVIDERS: ATTEND Nurse Practitioner Family
DX: E13.21 Other specified diabetes mellitus with diabetic nephropathy (principal); E66.9 Obesity, unspecified
CPT/HCPCS: 97802

== ENCOUNTER 2019-03-24 09:14 | Emergency (ER) | payer MEDICARE, MEDICAID ==
[~2019-03-24] VITALS: Ht 157.5 cm; Wt 86.2 kg
[2019-03-24] MEDS ORDERED: EPINEPHrine IM STA (09:32)
[2019-03-24] MEDS ORDERED: EPINEPHrine ONE ×2 (09:40→09:45)
[2019-03-24] MEDS ORDERED: KENALOG-40 ONE (09:41)
--- NOTE | 2019-03-24 09:42 | ER.PDOC ---
General Chief Complaint: Requesting Medical Care Stated Complaint: ALLGERIC REACTION Time seen by MD: 09:00 Source: patient Exam Limitations: no limitations History of Present Illness Severity: mild Associated Symptoms: skin rash, itching, throat swollen, mild SOB Identified Cause: possibly Exposure: antibiotic Allergies: Coded Allergies: ciprofloxacin (Verified Allergy, Unknown, 11/14/18) Past Medical History Surgical History: back, gastric bypass, hysterectomy Social History Drug Use: none Reviewed Nursing Reviewed: Vital Signs, Abn. Noted All Other Systems: Reviewed and Negative Physical Exam General Appearance: alert, no distress HEENT: ENT nml inspection, pharynx, voice nml Extremities: non-tender, nml ROM, no edema Neck: nml inspection Respiratory: no resp. distress, breath sounds nml CVS: reg. rate & rhythm, heart sounds nml Abdomen: non-tender, no organomegaly NEURO/PSYCH: oriented x 3, CN's nml as tested, motor nml, sensation nml, mood/affect nml Results/Orders Results/Orders Orders - MARJAN VÁSQUEZ MD Triamcinolone Acetonide (Kenalog-40) (03/24/19 10:00) Epinephrine (Epinephrine) (03/24/19 09:32) Cbc With Auto Diff (03/24/19 09:33) Comprehensive Metabolic Panel (03/24/19 09:33) Creatine Kinase (03/24/19 09:33) Creatine Kinase Mb (03/24/19 09:33) Troponin I (03/24/19 09:33) Probnp B-Type Child Development Teacher (03/24/19 09:33) PT (03/24/19 09:33) Partial Thromboplastin Time. (03/24/19 09:33) Ekg-Routine (03/24/19 09:33) Urinalysis (03/24/19 09:38) Epinephrine (Epinephrine) (03/24/19 09:40) Triamcinolone Acetonide (Kenalog-40) (03/24/19 09:41) Epinephrine (Epinephrine) (03/24/19 09:45) Administered Medications Medications (Trade) Dose Ordered Sig/Keith Route PRN Reason Start Time Stop Time Status Last Admin Dose Admin Epinephrine HCl (EPINEPHrine) 0.3 mg STAT STAT IM 03/24/19 09:32 03/24/19 09:33 DC 03/24/19 09:48 0.3 MG Triamcinolone Acetonide (Kenalog-40) 40 mg OT ONCE IM 03/24/19 10:00 03/24/19 10:01 DC 03/24/19 09:48 40 MG Laboratory Tests Test 03/24/19 09:40 White Blood Count 7.6 10^3/uL (4.5-11.0) Red Blood Count 4.48 10^6/uL (4.00-5.20) Hemoglobin 13.1 g/dL (12.0-15.0) Hematocrit 39.0 % (36.0-46.0) Mean Corpuscular Volume 87.1 fL (78-100) Mean Corpuscular Hemoglobin 29.2 pg (26-34) Mean Corpuscular Hemoglobin Concent 33.6 g/dL (33-37) Red Cell Distribution Width 14.3 % (11.5-14.5) Platelet Count 274 10^3/uL (150-400) Mean Platelet Volume 9.8 fL (7.8-11.0) Neutrophils (%) (Auto) 63.4 % (41.0-85.0) Lymphocytes (%) (Auto) 22.9 % (24.0-44.0) L Monocytes (%) (Auto) 6.2 % (5.0-12.0) Neutrophils # (Auto) 4.8 10^3/uL (1.8-7.7) Lymphocytes # (Auto) 1.7 10^3/uL (1.0-4.8) Monocytes # (Auto) 0.5 10^3/uL (0.3-0.8) Absolute Immature Granulocyte (auto 0.01 10^3 u/L (0-2) Immature Granulocytes % 0.10 % (0.00-0.50) Eosinophils % 7.1 % (0.0-5.0) H Basophils % 0.3 % (0.0-0.2) H Basophils # 0.0 10^3/uL (0.0-0.1) Eosinophil Count 0.5 10^3/uL (0.0-0.2) H Prothrombin Time 11.0 SEC (9.4-11.5) Prothrombin Time INR (Non-Therap) 1.1 Activated Partial Thromboplast Time 29.6 SEC (24.67-30.72) Sodium Level 138 mmol/L (132-145) Potassium Level 3.1 mmol/L (3.6-5.2) L Chloride Level 100.0 mmol/L (96-109) Carbon Dioxide Level 27.1 mmol/L (20.0-32) Anion Gap 14.0 Blood Urea Nitrogen 17 mg/dL (7-18) Creatinine 1.30 mg/dL (0.59-1.40) Estimated GFR () 48.7 (>/=60) BUN/Creatinine Ratio 13.0 Glucose Level 136 mg/dL (70-110) H Calcium Level 8.8 mg/dL (8.4-10.5) Total Bilirubin 0.4 mg/dL (0.2-1.0) Aspartate Amino Transferase (AST) 25 U/L (0-35) Alanine Aminotransferase (ALT) 21 U/L (12-78) Alkaline Phosphatase 103 U/L (50-136) Total Creatine Kinase 49 U/L (26-192) Creatine Kinase MB < 0.5 ng/mL (0.5-3.6) L Troponin I < 0.02 ng/mL (0.00-0.05) Pro-B-Type Natriuretic Peptide 71 pg/mL (0-125) Total Protein 7.5 g/dL (6.4-8.2) Albumin 3.3 g/dL (3.4-5.0) L Globulin 4.2 Course Sepsis Screening Results: Posi: POSITIVE SEPSIS RISK Duration or Total Time Spent w: 60 mins Vitals & review Data Laboratory Tests Test 03/24/19 09:40 White Blood Count 7.6 10^3/uL Red Blood Count 4.48 10^6/uL Hemoglobin 13.1 g/dL Hematocrit 39.0 % Mean Corpuscular Volume 87.1 fL Mean Corpuscular Hemoglobin 29.2 pg Mean Corpuscular Hemoglobin Concent 33.6 g/dL Red Cell Distribution Width 14.3 % Platelet Count 274 10^3/uL Mean Platelet Volume 9.8 fL Neutrophils (%) (Auto) 63.4 % Lymphocytes (%) (Auto) 22.9 % Monocytes (%) (Auto) 6.2 % Neutrophils # (Auto) 4.8 10^3/uL Lymphocytes # (Auto) 1.7 10^3/uL Monocytes # (Auto) 0.5 10^3/uL Absolute Immature Granulocyte (auto 0.01 10^3 u/L Immature Granulocytes % 0.10 % Eosinophils % 7.1 % Basophils % 0.3 % Basophils # 0.0 10^3/uL Eosinophil Count 0.5 10^3/uL Prothrombin Time 11.0 SEC Prothrombin Time INR (Non-Therap) 1.1 Activated Partial Thromboplast Time 29.6 SEC Sodium Level 138 mmol/L Potassium Level 3.1 mmol/L Chloride Level 100.0 mmol/L Carbon Dioxide Level 27.1 mmol/L Anion Gap 14.0 Blood Urea Nitrogen 17 mg/dL Creatinine 1.30 mg/dL Estimated GFR () 48.7 BUN/Creatinine Ratio 13.0 Glucose Level 136 mg/dL Calcium Level 8.8 mg/dL Total Bilirubin 0.4 mg/dL Aspartate Amino Transf (AST/SGOT) 25 U/L Alanine Aminotransferase (ALT/SGPT) 21 U/L Alkaline Phosphatase 103 U/L Total Creatine Kinase 49 U/L Creatine Kinase MB < 0.5 ng/mL Troponin I < 0.02 ng/mL Pro-B-Type Natriuretic Peptide 71 pg/mL Total Protein 7.5 g/dL Albumin 3.3 g/dL Globulin 4.2 Sepsis Infection Criteria Pres: None Departure Time of Disposition: 10:00 Disposition: 01 HOME, SELF-CARE Impression: Primary Impression: Allergic reaction caused by a drug Condition: Improved Referrals: SHOSHANA GALDAMEZ RETAIL BUSINESS MANAGER (PCP) PRIMARY CARE PROVIDER Duration or Time Spent with Pa: 30 M MARJAN VÁSQUEZ MD Mar 24, 2019 09:42
[2019-03-24 09:43] LABS: BASOPHIL % 0.3 % (0.0-0.2); EOSINOPHIL # 0.5 10^3/uL (0.0-0.2); EOSINOPHIL % 7.1 % (0.0-5.0); LYMPHOCYTES # 1.7 10^3/uL (1.0-4.8); LYMPHOCYTES % 22.9 % (24.0-44.0); MEAN CORP HGB 29.2 pg (26-34); MONOCYTES # 0.5 10^3/uL (0.3-0.8); MONOCYTES % 6.2 % (5.0-12.0); NEUTROPHIL # 4.8 10^3/uL (1.8-7.7); NEUTROPHILS % 63.4 % (41.0-85.0); RED CELL DISTRIBUTION WIDTH 14.3 % (11.5-14.5)
--- NOTE | 2019-03-24 09:45 | PCM.EKG ---
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 Operator: ANY : 1945 Requested By: MARK WHALEN Order Number: [id number] Reading MD: Mark Whalen Measurements Intervals [place] Rate: 65 P: 57 MD: 196 QRS: -55 QRSD: 110 T: 99 QT: 494 QTc: 514 Interpretive Statements Sinus rhythm Atrial premature complex Left anterior fascicular block Abnormal R-wave progression, late transition Borderline repolarization abnormality Prolonged QT interval Compared to ECG 11/13/2018 10:22:33 Atrial premature complex(es) now present Left anterior fascicular block now present Prolonged QT interval now present Sinus bradycardia no longer present Left-axis deviation no longer present Electronically Signed On 03-26-2019 9:58:45 WAREHOUSE HAND by Mark Whalen Please click the below link to view image of tracing.
[2019-03-24] MEDS ORDERED: KENALOG-40 IM ONE (10:00)
[2019-03-24 10:10] LABS: ALANINE AMINOTRANSFERASE(ML) 21 U/L (12-78); ALKALINE PHOSPHATASE 103 U/L (50-136); ASPARTATE AMINO TRANSFERASE 25 U/L (0-35); CALCIUM 8.8 mg/dL (8.4-10.5); CARBON DIOXIDE 27.1 mmol/L (20.0-32); GLUCOSE 136 mg/dL (70-110)
[2019-03-24 10:44] VITALS: BP 124/70
[2019-03-24 10:48] VITALS: BP 124/70
[2019-03-25] MEDS ORDERED: PRED5DRO16 LEFT EYE (22:47)
[2019-03-25] MEDS ORDERED: PANT40TA5 PO (22:47)
[2019-03-25] MEDS ORDERED: PRED5DRO16 RIGHT EYE (22:47)
[2019-03-25] MEDS ORDERED: LEVO150T6 PO (22:47)
[2019-03-25] MEDS ORDERED: LORA10TA62 PO (22:47)
[2019-03-25] MEDS ORDERED: EYEL1TOW2 TP (22:47)
[2019-03-25] MEDS ORDERED: INSU100V35 SUBCUT (22:47)
[2019-03-25] MEDS ORDERED: ISOS10TA6 PO (22:47)
[2019-03-25] MEDS ORDERED: APIX5TAB PO (22:47)
[2019-03-25] MEDS ORDERED: LOSA100T14 PO (22:47)
== END 2019-03-24 10:40 | disposition home or self-care (01) ==
LOC: ER 09:14
DX: R21 Rash and other nonspecific skin eruption (principal); L29.9 Pruritus, unspecified; R06.02 Shortness of breath; R07.0 Pain in throat; T50.905A Adverse effect of unspecified drugs, medicaments and biological substances, initial encounter; Z88.1 Allergy status to other antibiotic agents; Z90.710 Acquired absence of both cervix and uterus; Z98.84 Bariatric surgery status; Y92.89 Other specified places as the place of occurrence of the external cause
CPT/HCPCS: 36415; 80053; 82550; 82553; 83880; 84484; 85025; 85610; 85730; 93005; 96372; 99285; J0171 ×2; J3301

== ENCOUNTER 2019-03-25 18:59 | Emergency (ER) | payer MEDICARE, MEDICAID ==
[~2019-03-25] VITALS: Ht 149.9 cm; Wt 85.7 kg
--- NOTE | 2019-03-25 19:36 | ER.PDOC ---
General Chief Complaint: Requesting Medical Care Stated Complaint: WEAKNESS TRAVEL OUT OF US: No Time seen by MD: 19:05 Source: patient, EMS Exam Limitations: no limitations History of Present Illness Initial Comments 74 YO FEMALE BROUGHT IN BY EMS FOR GENERALIZED WEAKNESS WORSE TODAY. SHE DENIES CHEST PAIN BUT STATES SHORTNESS OF BREATH WORSE ON EXERTION. NO COUGH, FEVER, ABDOMINAL PAIN, NAUSEA OR DYSURIA. SHE DENEIS SORE THROAT, NASAL CONGESTION./. SHE DENIES DIZZINESS. SHE STATES THE LAST TIME SHE FELT THIS WAY WAS LOW POTASSIUM AND MAGNESIUM. SHE STATES SHE IS ON ANTIBIOTICS FOR UTI AND TOOK A STEROID TODAY. SHE USES 2 LITER OF OXYGEN BY NASAL CANULAR AT HOME. Timing/Duration: 4-6 hours Severity: moderate Modifying Factors: improves with rest Associated Symptoms: shortness of breath, weakness Allergies: Coded Allergies: ciprofloxacin (Verified Allergy, Unknown, 11/14/18) sulfamethoxazole (Verified Allergy, Unknown, 03/25/19) trimethoprim (Verified Allergy, Unknown, 03/25/19) Home Meds Reported Medications Isosorbide Mononitrate (ISOSORBIDE MONONITRATE) 10 Mg Tablet, 10 MG PO TID, TAB 03/25/19 Apixaban (Eliquis) 5 Mg Tablet, 5 MG PO BID, TABLET 03/25/19 Eyelid Cleanser Combination #9 (Systane) 1 Each Towelette, 1 EACH TP TID, TOWELETTE 03/25/19 Prednisolone Acetate (PREDNISOLONE ACETATE) 5 Ml Drops.susp, 2 DROP RIGHT EYE QID for 10 Days, #10 MILLILITER 0 Refills 03/25/19 Prednisolone Acetate (PREDNISOLONE ACETATE) 5 Ml Drops.susp, 2 DROP LEFT EYE QID for 10 Days, #10 MILLILITER 0 Refills 03/25/19 Losartan Potassium (LOSARTAN POTASSIUM) 100 Mg Tablet, 100 MG PO DAILY24, TAB 03/25/19 Loratadine (LORATADINE) 10 Mg Tab.rapdis, 10 MG PO DP, TAB 03/25/19 Pantoprazole Sodium (PANTOPRAZOLE SODIUM) 40 Mg Tablet.dr, 40 MG PO DAILY24 03/25/19 Levothyroxine Sodium (LEVOTHYROXINE SODIUM) 150 Mcg Tablet, 150 MCG PO DAILY24, TAB 03/25/19 Insulin Degludec (Tresiba) 100 Unit/Ml Vial, 10 UNIT SUBCUT DP 11/19/19 Past Medical History Medical History: arrhythmia (ATRIAL FIBRILLATION), coronary artery disease, cardiac problems, congestive heart failure, diabetes, GERD, hypertension, thyroid disease, other (GOUT, DEPRESSION, ANXIETY) Surgical History: back, gastric bypass, hysterectomy Family History Significant Family History: no pertinent family hx Social History Drug Use: none Reviewed Nursing Reviewed: Vital Signs, Abn. Noted Review of Systems Constitutional: see HPI EENTM: see HPI Respiratory: see HPI Cardiovascular: see HPI Gastrointestinal: see HPI Genitourinary: see HPI Musculoskeletal: see HPI Skin: see HPI Psychiatric/Neurological: see HPI Hematologic/Lymphatic: see HPI Physical Exam General Appearance: No Apparent Distress EENT: eyes nml inspection, nml ENT inspection, pharynx nml Neck: Non-Tender, Full Range of Motion, Supple, Normal Inspection Respiratory: chest non-tender, lungs clear, normal breath sounds, no respiratory distress CVS: reg rate & rhythm, no gallop, pulses nml Gastrointestinal: Normal Bowel Sounds, No Organomegaly, No Pulsatile Mass, Non Tender Back: Normal Inspection, No CVA Tenderness Extremities: Normal Range of Motion, Non-Tender, Normal Inspection, No Pedal Edema 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: oracle adf consultant II-XII NML as Tested, No Motor/Sensory Deficits, Alert, Normal Mood/Affect, Oriented x 3 Skin: Normal Color, Warm/Dry Results/Orders Results/Orders Orders - PENELOPE RUDOLPH MD Cbc With Auto Diff (03/25/19 19:31) Comprehensive Metabolic Panel (03/25/19 19:31) Creatine Kinase (03/25/19 19:31) Troponin I (03/25/19 19:31) Probnp B-Type Dietitian Teacher (03/25/19 19:31) PT (03/25/19 19:31) D-Dimer (03/25/19 19:31) Xr Chest 1v (03/25/19 19:31) Ekg-Routine (03/25/19 19:31) Type And Screen (03/25/19 19:31) Saline Lock (03/25/19 19:31) Magnesium (03/25/19 19:31) Urinalysis (03/25/19 19:31) Ringer's Solution,Lactated (Lactated Rin (03/25/19 21:07) Thyroid Stimulating Horm(Ml) (03/25/19 21:20) Ringer's Solution,Lactated (Lactated Rin (03/25/19 21:20) Influenza A&B (03/25/19 21:43) Basic Metabolic Panel (03/25/19 22:08) Ct Head Wo Contrast (03/25/19 22:52) Vital Signs Date Time Temp Pulse Resp B/P (MAP) Pulse Ox O2 Delivery O2 Flow Rate FiO2 03/25/19 23:17 67 18 147/76 (99) 97 Nasal Canula 2.00 03/25/19 22:10 64 18 142/78 (99) 97 Nasal Canula 2.00 03/25/19 19:56 98.6 70 17 03/25/19 19:56 98.6 70 17 142/77 (98) 95 Nasal Canula 2.00 03/25/19 19:56 98.6 70 17 95 Nasal Canula Laboratory Tests Test 03/25/19 00:00 03/25/19 19:40 03/25/19 22:15 Urine Collection Type VOID Urine Color YELLOW (YELLOW) Urine Appearance CLEAR (CLEAR) Urine Bilirubin NEGATIVE MG/DL (NEGATIVE) Urine Ketones NEGATIVE (NEGATIVE) Urine Specific Welches 1.015 (1.005-1.035) Urine pH 6 (5.0-6.0) Urine Protein NEGATIVE (NEGATIVE) Urine Urobilinogen NORMAL (NEGATIVE) Urine Nitrate NEGATIVE (NEGATIVE) Urine Leukocyte Esterase NEGATIVE (NEGATIVE) Urine Blood NEGATIVE (NEGATIVE) Urine Glucose NORMAL (NEGATIVE) Influenza Type A Antigen NEGATIVE (NEG) Influenza B Immunofluorescence NEGATIVE (NEG) White Blood Count 6.4 10^3/uL (4.5-11.0) Red Blood Count 4.47 10^6/uL (4.00-5.20) Hemoglobin 13.0 g/dL (12.0-15.0) Hematocrit 39.2 % (36.0-46.0) Mean Corpuscular Volume 87.7 fL (78-100) Mean Corpuscular Hemoglobin 29.1 pg (26-34) Mean Corpuscular Hemoglobin Concent 33.2 g/dL (33-37) Red Cell Distribution Width 14.3 % (11.5-14.5) Platelet Count 283 10^3/uL (150-400) Mean Platelet Volume 9.7 fL (7.8-11.0) Neutrophils (%) (Auto) 85.3 % (41.0-85.0) H Lymphocytes (%) (Auto) 11.7 % (24.0-44.0) L Monocytes (%) (Auto) 2.2 % (5.0-12.0) L Neutrophils # (Auto) 5.5 10^3/uL (1.8-7.7) Lymphocytes # (Auto) 0.8 10^3/uL (1.0-4.8) L Monocytes # (Auto) 0.1 10^3/uL (0.3-0.8) L Absolute Immature Granulocyte (auto 0.02 10^3 u/L (0-2) Immature Granulocytes % 0.30 % (0.00-0.50) Eosinophils % 0.3 % (0.0-5.0) Basophils % 0.2 % (0.0-0.2) Basophils # 0.0 10^3/uL (0.0-0.1) Eosinophil Count 0.0 10^3/uL (0.0-0.2) Prothrombin Time 10.7 SEC (9.4-11.5) Prothrombin Time INR (Non-Therap) 1.0 D-Dimer 0.86 mg/L (0.19-0.49) *H Sodium Level 136 mmol/L (132-145) 138 mmol/L (132-145) Potassium Level 3.9 mmol/L (3.6-5.2) 4.1 mmol/L (3.6-5.2) Chloride Level 100.0 mmol/L (96-109) 102.0 mmol/L (96-109) Carbon Dioxide Level 25.3 mmol/L (20.0-32) 26.1 mmol/L (20.0-32) Anion Gap 14.6 14.0 Blood Urea Nitrogen 25 mg/dL (7-18) H 26 mg/dL (7-18) H Creatinine 1.71 mg/dL (0.59-1.40) H 1.55 mg/dL (0.59-1.40) H Estimated GFR () 35.5 (>/=60) 39.8 (>/=60) BUN/Creatinine Ratio 14.0 16.0 Glucose Level 159 mg/dL (70-110) H 160 mg/dL (70-110) H Calcium Level 9.3 mg/dL (8.4-10.5) 9.5 mg/dL (8.4-10.5) Magnesium Level 2.2 mg/dL (1.8-2.4) Total Bilirubin 0.4 mg/dL (0.2-1.0) Aspartate Amino Transferase (AST) 27 U/L (0-35) Alanine Aminotransferase (ALT) 24 U/L (12-78) Alkaline Phosphatase 106 U/L (50-136) Total Creatine Kinase 89 U/L (26-192) Troponin I < 0.02 ng/mL (0.00-0.05) Pro-B-Type Natriuretic Peptide 126 pg/mL (0-125) H Total Protein 8.0 g/dL (6.4-8.2) Albumin 3.5 g/dL (3.4-5.0) Globulin 4.5 Thyroid Stimulating Hormone (TSH) 0.625 mIU/mL (0.358-3.740) Blood Bank Test 03/25/19 19:40 Antibody Screen NEGATIVE BBK History Checked NO PREVIOUS RECORD Blood Type A POSITIVE Progress Progress ELEVATED CREATININE AND D-DIMER, UNABLE TO DO CTA TO RULE OUT PE. TRIED SLOW HYDRATION WITH IVF FLUID AND REPEATED BMP- CREATININE STILL ELEVATED. UNABLE TO HAVE CTA DONE, WILL TRANSFER TO [place] FOR VQ SCAN TO RULE OUT PE. CT HEAD WITHOUT CONTRAST UNREMARKABLE. EKG/XRAY/CT/US EKG: NSR (RATE 66/ MIN), nonspecific ST T wave chg XRAY: chest XRAY Comments: . Shallow inspiration but no pulmonary infiltrate. CT Comments: 1. No acute intracranial hemorrhage or mass effect. Consult/PCP Time Consult/PCP Called: 22:45 Consult/PCP: DR. MILLER Reason/Comments: TRANSFER TO OBTAIN VQ SCAN RENAL FUNCTION IS ABNORMAL. #2 Time Consult/PCP Called: 00:07 Consult/PCP: DR. TAYE HENDRICKSON Reason/Comments: ACCEPTED TRANSFER TO [facility] ER IN [place] FOR FURTHER EVALUATION Course Sepsis Screening Results: Posi: POSITIVE SEPSIS RISK Duration or Total Time Spent w: 30 M Vitals & review Data Vital Sign - Last 24 Hours 03/25/19 03/25/19 03/25/19 03/25/19 19:56 19:56 19:56 22:10 Temp 98.6 98.6 98.6 Pulse 70 70 70 64 Resp 17 17 17 18 B/P (MAP) 142/77 (98) 142/78 (99) Pulse Ox 95 95 97 O2 Delivery Nasal Canula Nasal Canula Nasal Canula O2 Flow Rate 2.00 2.00 03/25/19 23:17 Pulse 67 Resp 18 B/P (MAP) 147/76 (99) Pulse Ox 97 O2 Delivery Nasal Canula O2 Flow Rate 2.00 Laboratory Tests Test 03/25/19 00:00 03/25/19 19:40 03/25/19 22:15 Urine Collection Type VOID Urine Color YELLOW Urine Appearance CLEAR Urine Bilirubin NEGATIVE MG/DL Urine Ketones NEGATIVE Urine Specific Welches 1.015 Urine pH 6 Urine Protein NEGATIVE Urine Urobilinogen NORMAL Urine Nitrate NEGATIVE Urine Leukocyte Esterase NEGATIVE Urine Blood NEGATIVE Urine Glucose NORMAL Influenza Type A Antigen NEGATIVE Influenza B Immunofluorescence NEGATIVE White Blood Count 6.4 10^3/uL Red Blood Count 4.47 10^6/uL Hemoglobin 13.0 g/dL Hematocrit 39.2 % Mean Corpuscular Volume 87.7 fL Mean Corpuscular Hemoglobin 29.1 pg Mean Corpuscular Hemoglobin Concent 33.2 g/dL Red Cell Distribution Width 14.3 % Platelet Count 283 10^3/uL Mean Platelet Volume 9.7 fL Neutrophils (%) (Auto) 85.3 % Lymphocytes (%) (Auto) 11.7 % Monocytes (%) (Auto) 2.2 % Neutrophils # (Auto) 5.5 10^3/uL Lymphocytes # (Auto) 0.8 10^3/uL Monocytes # (Auto) 0.1 10^3/uL Absolute Immature Granulocyte (auto 0.02 10^3 u/L Immature Granulocytes % 0.30 % Eosinophils % 0.3 % Basophils % 0.2 % Basophils # 0.0 10^3/uL Eosinophil Count 0.0 10^3/uL Prothrombin Time 10.7 SEC Prothrombin Time INR (Non-Therap) 1.0 D-Dimer 0.86 mg/L Sodium Level 136 mmol/L 138 mmol/L Potassium Level 3.9 mmol/L 4.1 mmol/L Chloride Level 100.0 mmol/L 102.0 mmol/L Carbon Dioxide Level 25.3 mmol/L 26.1 mmol/L Anion Gap 14.6 14.0 Blood Urea Nitrogen 25 mg/dL 26 mg/dL Creatinine 1.71 mg/dL 1.55 mg/dL Estimated GFR () 35.5 39.8 BUN/Creatinine Ratio 14.0 16.0 Glucose Level 159 mg/dL 160 mg/dL Calcium Level 9.3 mg/dL 9.5 mg/dL Magnesium Level 2.2 mg/dL Total Bilirubin 0.4 mg/dL Aspartate Amino Transf (AST/SGOT) 27 U/L Alanine Aminotransferase (ALT/SGPT) 24 U/L Alkaline Phosphatase 106 U/L Total Creatine Kinase 89 U/L Troponin I < 0.02 ng/mL Pro-B-Type Natriuretic Peptide 126 pg/mL Total Protein 8.0 g/dL Albumin 3.5 g/dL Globulin 4.5 Thyroid Stimulating Hormone (TSH) 0.625 mIU/mL Sepsis Infection Criteria Pres: None Departure Time of Disposition: 00:08 Disposition: 05 DISCH/XFER OTHER ([facility] [place]) Impression: Primary Impression: Generalized weakness Additional Impressions: Shortness of breath Renal insufficiency Condition: Stable If Transfer, List PT Destinati: [facility] ER IN [place], [place] Referrals: SHOSHANA GALDAMEZ ELEVATED WORK PLATFORM OPERATOR (PCP) PRIMARY CARE PROVIDER Duration or Time Spent with Pa: 60 MIN Problem Qualifiers PENELOPE RUDOLPH MD Mar 25, 2019 19:36
--- NOTE | 2019-03-25 19:51 | PCM.EKG ---
[facility] Test Date: 2019-03-25 Test Time: 19:49:04 Pat Name: ERICH LAI Department: Room: Gender: F [employer]: TB : 1945 Requested By: AUGUSTO CANADA Order Number: [id number] Reading MD: Augusto Canada Measurements Intervals [place] Rate: 66 P: 69 IA: 200 QRS: -54 QRSD: 119 T: 104 QT: 496 QTc: 520 Interpretive Statements Sinus rhythm LAD, consider left anterior fascicular block Nonspecific T abnrm, anterolateral leads Compared to ECG 11/13/2018 10:22:33 Sinus bradycardia no longer present Left-axis deviation no longer present T-wave abnormality no longer present Electronically Signed On 03-26-2019 0:29:32 BROKER by Augusto Canada Please click the below link to view image of tracing.
[2019-03-25 19:53] LABS: BASOPHIL % 0.2 % (0.0-0.2); EOSINOPHIL % 0.3 % (0.0-5.0); LYMPHOCYTES # 0.8 10^3/uL (1.0-4.8); LYMPHOCYTES % 11.7 % (24.0-44.0); MEAN CELL HGB 29.1 pg (26-34); MEAN CELL HGB CONCENTRATION 33.2 g/dL (33-37); MEAN CORP VOLUME 87.7 fL (78-100); MEAN PLATELET VOLUME 9.7 fL (7.8-11.0); MONOCYTES # 0.1 10^3/uL (0.3-0.8); MONOCYTES % 2.2 % (5.0-12.0); NEUTROPHIL # 5.5 10^3/uL (1.8-7.7); NEUTROPHILS % 85.3 % (41.0-85.0); RED CELL DISTRIBUTION WIDTH 14.3 % (11.5-14.5); WHITE BLOOD CELL 6.4 10^3/uL (4.5-11.0)
[2019-03-25 19:56] VITALS: BP 142/77
[2019-03-25 20:14] LABS: BILIRUBIN,URINE NEGATIVE (NEGATIVE); UROBILINOGEN,URINE NORMAL (NEGATIVE)
[2019-03-25 20:16] LABS: APPEARANCE,URINE CLEAR (CLEAR); UA COLOR YELLOW (YELLOW)
[2019-03-25 20:19] LABS: ALANINE AMINOTRANSFERASE(ML) 24 U/L (12-78); ALKALINE PHOSPHATASE 106 U/L (50-136); ASPARTATE AMINO TRANSFERASE 27 U/L (0-35); CALCIUM 9.3 mg/dL (8.4-10.5); CARBON DIOXIDE 25.3 mmol/L (20.0-32); GLUCOSE 159 mg/dL (70-110)
--- NOTE | 2019-03-25 20:21 | DIREP ---
PROCEDURE:CHEST 1 VIEW COMPARISON:[facility], CR, XRAY CHEST SINGLE VW, 11/13/2018, 10:26 AM. [facility], CR, XRAY CHEST 2 VWS, 01/13/2016, 12:54 PM. INDICATIONS:shortness of breath FINDINGS: LUNGS/PLEURA:Shallow inspiration VASCULATURE:Normal. Unremarkable pulmonary vasculature. CARDIAC:Normal. No cardiac silhouette abnormality or cardiomegaly. MEDIASTINUM:Normal. No visible mass or adenopathy. BONES:Normal. No fracture or visible bony lesion. OTHER:Negative. CONCLUSION: 1. Shallow inspiration but no pulmonary infiltrate. Dictated by: Rolando Monsivais Jr. on 03/25/2019 at 08:19 PM
[2019-03-25] MEDS ORDERED: LACTATED RINGERS 1,000 ML ONE (21:07)
[2019-03-25] MEDS ORDERED: LACTATED RINGERS 1,000 ML IV STA (21:20)
[2019-03-25 22:10] VITALS: BP 142/78
--- NOTE | 2019-03-25 22:30 | NUR ---
O2 CHALLENGE PATIENT TAKEN OFF OF O2. REEVALUATED 15 MINUTES AFTER, O2SAT 88% ON RA. PATIENT PLACED BACK ON 02 AT 2LPM VIA NC WITH 02SAT OF 95%. EDP NOTIFIED
[2019-03-25 22:32] LABS: CALCIUM 9.5 mg/dL (8.4-10.5); CARBON DIOXIDE 26.1 mmol/L (20.0-32)
--- NOTE | 2019-03-25 22:36 | NUR ---
UPDATE DR NEGRETE AWARE OF NEW CREATININE LEVEL
--- NOTE | 2019-03-25 22:45 | NUR ---
DR ANGELA NEGRETE ON PHONE WITH DR MILLER
[2019-03-25] MEDS ORDERED: EYEL1TOW2 TP (22:47)
[2019-03-25] MEDS ORDERED: PANT40TA5 PO (22:47)
[2019-03-25] MEDS ORDERED: LEVO150T6 PO (22:47)
[2019-03-25] MEDS ORDERED: PRED5DRO16 LEFT EYE (22:47)
[2019-03-25] MEDS ORDERED: ISOS10TA6 PO (22:47)
[2019-03-25] MEDS ORDERED: APIX5TAB PO (22:47)
[2019-03-25] MEDS ORDERED: PRED5DRO16 RIGHT EYE (22:47)
[2019-03-25] MEDS ORDERED: LOSA100T14 PO (22:47)
[2019-03-25] MEDS ORDERED: LORA10TA62 PO (22:47)
[2019-03-25] MEDS ORDERED: INSU100V35 SUBCUT (22:47)
[2019-03-25 23:17] VITALS: BP 147/76
--- NOTE | 2019-03-26 00:01 | DIREP ---
PROCEDURE: CT HEAD BRAIN W/O CONTRAST TECHNIQUE:Contiguous 5.0 mm transaxial sections were obtained from the vertex to skull base without the use of intravenous contrast. COMPARISON:[facility], CT, CT HEAD BRAIN W/O CONTRAST, 11/14/2018, 04:09 PM. INDICATIONS:WEAKNESS FINDINGS: VENTRICLES:Within normal limits. CEREBRUM:No acute intracranial hemorrhage or mass effect. Hypoattenuation throughout the deep periventricular and subcortical white matter, consistent with chronic small vessel ischemia. CEREBELLUM:Normal. BRAINSTEM:Normal. SKULL:Hyperostosis frontalis interna. Otherwise, within normal limits. SINUSES:Well pneumatized. OTHER:Negative. CONCLUSION: 1. No acute intracranial hemorrhage or mass effect. 2. Age-related involutional and chronic microvascular ischemic changes. Dictated by: Teodoro Liang MD on 03/25/2019 at 11:58 PM
--- NOTE | 2019-03-26 00:04 | NUR ---
[facility] DR NEGRETE ON PHONE WITH [facility]
--- NOTE | 2019-03-26 00:14 | NUR ---
DISPATCH NOTIFIED OF TRANSFER
--- NOTE | 2019-03-26 00:33 | NUR ---
REPORT REPORT GIVEN TO SHANELLE AT [facility]
== END 2019-03-26 00:30 | disposition short-term general hospital (02) ==
LOC: ER 18:59
DX: N28.9 Disorder of kidney and ureter, unspecified (principal); R06.02 Shortness of breath; R53.1 Weakness; E07.9 Disorder of thyroid, unspecified; E11.9 Type 2 diabetes mellitus without complications; F32.9 Major depressive disorder, single episode, unspecified; F41.9 Anxiety disorder, unspecified; I11.0 Hypertensive heart disease with heart failure; I25.10 Atherosclerotic heart disease of native coronary artery without angina pectoris; I48.91 Unspecified atrial fibrillation; I50.9 Heart failure, unspecified; K21.9 Gastro-esophageal reflux disease without esophagitis; M10.9 Gout, unspecified; Z79.01 Long term (current) use of anticoagulants; Z79.899 Other long term (current) drug therapy; Z88.1 Allergy status to other antibiotic agents; Z88.2 Allergy status to sulfonamides; Z90.710 Acquired absence of both cervix and uterus; Z98.84 Bariatric surgery status
CPT/HCPCS: 36415; 70450; 71045; 80048; 80053; 81002; 82550; 83735; 83880; 84443; 84484; 85025; 85379; 85610; 86900; 87804 ×2; 93005; 99285; J7120

== ENCOUNTER 2019-03-29 07:35 | Emergency (ER) | payer MEDICARE, MEDICAID ==
[~2019-03-29] VITALS: Ht 149.9 cm; Wt 122.5 kg
[2019-03-29 07:35] VITALS: BP 150/94
[~2019-03-29 07:35] MED LIST: APIX5TAB PO; EYEL1TOW2 TP; INSU100V35 SUBCUT; ISOS10TA6 PO; LEVO150T6 PO; LORA10TA62 PO; LOSA100T14 PO; PANT40TA5 PO; PRED5DRO16 LEFT EYE; PRED5DRO16 RIGHT EYE
--- NOTE | 2019-03-29 07:50 | PCM.EKG ---
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
--- NOTE | 2019-03-29 07:51 | ER.PDOC ---
General Chief Complaint: Requesting Medical Care Stated Complaint: FALL Time seen by MD: 07:44 Source: patient, EMS Exam Limitations: no limitations History of Present Illness Initial Comments Patient felt light-headed upon standing this morning, experienced syncopal episode, collapsed striking head. Denies actual LOC. Timing/Prior Episodes: recent history (Hospitalized at [facility] last week) Symptoms Prior to Episode: lightheadedness Precipitating Factors: standing (had just stood from sitting position) Loss of Consciousness: No Loss of Consciousness Location of Injury: Head Current Symptoms: weakness Allergies: Coded Allergies: ciprofloxacin (Verified Allergy, Unknown, 11/14/18) sulfamethoxazole (Verified Allergy, Unknown, 03/25/19) trimethoprim (Verified Allergy, Unknown, 03/25/19) Home Meds Reported Medications Isosorbide Mononitrate (ISOSORBIDE MONONITRATE) 10 Mg Tablet, 10 MG PO TID, TAB 03/25/19 Apixaban (Eliquis) 5 Mg Tablet, 5 MG PO BID, TABLET 03/25/19 Eyelid Cleanser Combination #9 (Systane) 1 Each Towelette, 1 EACH TP TID, TOWELETTE 03/25/19 Prednisolone Acetate (PREDNISOLONE ACETATE) 5 Ml Drops.susp, 2 DROP RIGHT EYE QID for 10 Days, #10 MILLILITER 0 Refills 03/25/19 Prednisolone Acetate (PREDNISOLONE ACETATE) 5 Ml Drops.susp, 2 DROP LEFT EYE QID for 10 Days, #10 MILLILITER 0 Refills 03/25/19 Losartan Potassium (LOSARTAN POTASSIUM) 100 Mg Tablet, 100 MG PO DAILY24, TAB 03/25/19 Loratadine (LORATADINE) 10 Mg Tab.rapdis, 10 MG PO DP, TAB 03/25/19 Pantoprazole Sodium (PANTOPRAZOLE SODIUM) 40 Mg Tablet.dr, 40 MG PO DAILY24 03/25/19 Levothyroxine Sodium (LEVOTHYROXINE SODIUM) 150 Mcg Tablet, 150 MCG PO DAILY24, TAB 03/25/19 Insulin Degludec (Tresiba) 100 Unit/Ml Vial, 10 UNIT SUBCUT DP 03/25/19 Past Medical History Medical History: arrhythmia, coronary artery disease, cardiac problems, congestive heart failure, diabetes, GERD, hypertension, thyroid disease, other Surgical History: back, gastric bypass, hysterectomy Social History Drug Use: none Review of Systems Constitutional: weakness EENTM: no symptoms reported Respiratory: no symptoms reported Cardiovascular: syncope (this a.m., just DRAW FRAME RUNNER) Gastrointestinal: no symptoms reported Musculoskeletal: no symptoms reported Skin: no symptoms reported Physical Exam General Appearance: No Apparent Distress HEENT: Other (mucous membranes dry) Neck: Non-Tender, Full Range of Motion Gastrointestinal: Normal Bowel Sounds Extremities: Non-Tender, Normal Inspection, No Pedal Edema, No Calf Tenderness Psychiatric: Alert, Oriented x 3 Cranial Nerves: Normal Speech, PERRL Motor/Sensory: No Motor Deficit Skin: Normal Color, Warm/Dry Results/Orders Results/Orders Orders - EMMA CEVALLOS DO Cbc With Auto Diff (03/29/19 07:44) Comprehensive Metabolic Panel (03/29/19 07:44) Creatine Kinase (03/29/19 07:44) PT (03/29/19 07:44) Partial Thromboplastin Time. (03/29/19 07:44) Xr Chest 1v (03/29/19 07:44) Ct Head Wo Contrast (03/29/19 07:44) Urinalysis (03/29/19 07:44) Ekg-Routine (03/29/19 07:44) Troponin I (03/29/19 07:44) Saline Lock (03/29/19 07:44) Acetaminophen (Tylenol) (03/29/19 08:31) Acetaminophen (Tylenol) (03/29/19 08:39) Vital Signs Date Time Temp Pulse Resp B/P (MAP) Pulse Ox O2 Delivery O2 Flow Rate FiO2 03/29/19 08:13 28 03/29/19 07:35 98.2 65 28 92 Room Air 03/29/19 07:35 98.7 65 28 150/94 (112) 92 Room Air 03/29/19 07:35 98.7 65 28 Laboratory Tests Test 03/29/19 07:50 White Blood Count 8.2 10^3/uL (4.5-11.0) Red Blood Count 4.34 10^6/uL (4.00-5.20) Hemoglobin 12.7 g/dL (12.0-15.0) Hematocrit 38.1 % (36.0-46.0) Mean Corpuscular Volume 87.8 fL (78-100) Mean Corpuscular Hemoglobin 29.3 pg (26-34) Mean Corpuscular Hemoglobin Concent 33.3 g/dL (33-37) Red Cell Distribution Width 14.1 % (11.5-14.5) Platelet Count 301 10^3/uL (150-400) Mean Platelet Volume 9.7 fL (7.8-11.0) Neutrophils (%) (Auto) 79.6 % (41.0-85.0) Lymphocytes (%) (Auto) 14.4 % (24.0-44.0) L Monocytes (%) (Auto) 5.6 % (5.0-12.0) Neutrophils # (Auto) 6.5 10^3/uL (1.8-7.7) Lymphocytes # (Auto) 1.2 10^3/uL (1.0-4.8) Monocytes # (Auto) 0.5 10^3/uL (0.3-0.8) Absolute Immature Granulocyte (auto 0.02 10^3 u/L (0-2) Immature Granulocytes % 0.20 % (0.00-0.50) Eosinophils % 0.1 % (0.0-5.0) Basophils % 0.1 % (0.0-0.2) Basophils # 0.0 10^3/uL (0.0-0.1) Eosinophil Count 0.0 10^3/uL (0.0-0.2) Prothrombin Time 10.7 SEC (9.4-11.5) Prothrombin Time INR (Non-Therap) 1.0 Activated Partial Thromboplast Time 26.7 SEC (24.67-30.72) Sodium Level 136 mmol/L (132-145) Potassium Level 3.8 mmol/L (3.6-5.2) Chloride Level 99.0 mmol/L (96-109) Carbon Dioxide Level 27.8 mmol/L (20.0-32) Anion Gap 13.0 Blood Urea Nitrogen 20 mg/dL (7-18) H Creatinine 1.09 mg/dL (0.59-1.40) Estimated GFR () 59.7 (>/=60) BUN/Creatinine Ratio 18.0 Glucose Level 169 mg/dL (70-110) H Calcium Level 9.4 mg/dL (8.4-10.5) Total Bilirubin 0.4 mg/dL (0.2-1.0) Aspartate Amino Transferase (AST) 25 U/L (0-35) Alanine Aminotransferase (ALT) 28 U/L (12-78) Alkaline Phosphatase 101 U/L (50-136) Total Creatine Kinase 85 U/L (26-192) Troponin I < 0.02 ng/mL (0.00-0.05) Total Protein 7.9 g/dL (6.4-8.2) Albumin 3.5 g/dL (3.4-5.0) Globulin 4.[address] shows potential mass lesion right frontal lobe--recommends MRI. This is changed from November exam. Also, there is evidence of small infarct of indeterminant age. EKG/XRAY/CT/US XRAY: chest (no infiltrate) CT Comments: small infarct of indeterminant age; mass lesion Right frontal lobe Consult/PCP Time Consult/PCP Called: 09:03 Consult/PCP: Discussed with Odette ([facility] one-call) who accepted patient for transfer Reason/Comments: Dr. Noland accepting #2 EKG: NSR, no ST T wave changes Course Sepsis Screening Results: Posi: POSITIVE SEPSIS RISK Duration or Total Time Spent w: 60 MIN Vitals & review Data Vital Sign - Last 24 Hours 03/29/19 03/29/19 03/29/19 03/29/19 07:35 07:35 07:35 08:13 Temp 98.7 98.7 98.2 Pulse 65 65 65 Resp 28 28 28 28 B/P (MAP) 150/94 (112) Pulse Ox 92 92 O2 Delivery Room Air Room Air Laboratory Tests Test 03/29/19 07:50 White Blood Count 8.2 10^3/uL Red Blood Count 4.34 10^6/uL Hemoglobin 12.7 g/dL Hematocrit 38.1 % Mean Corpuscular Volume 87.8 fL Mean Corpuscular Hemoglobin 29.3 pg Mean Corpuscular Hemoglobin Concent 33.3 g/dL Red Cell Distribution Width 14.1 % Platelet Count 301 10^3/uL Mean Platelet Volume 9.7 fL Neutrophils (%) (Auto) 79.6 % Lymphocytes (%) (Auto) 14.4 % Monocytes (%) (Auto) 5.6 % Neutrophils # (Auto) 6.5 10^3/uL Lymphocytes # (Auto) 1.2 10^3/uL Monocytes # (Auto) 0.5 10^3/uL Absolute Immature Granulocyte (auto 0.02 10^3 u/L Immature Granulocytes % 0.20 % Eosinophils % 0.1 % Basophils % 0.1 % Basophils # 0.0 10^3/uL Eosinophil Count 0.0 10^3/uL Prothrombin Time 10.7 SEC Prothrombin Time INR (Non-Therap) 1.0 Activated Partial Thromboplast Time 26.7 SEC Sodium Level 136 mmol/L Potassium Level 3.8 mmol/L Chloride Level 99.0 mmol/L Carbon Dioxide Level 27.8 mmol/L Anion Gap 13.0 Blood Urea Nitrogen 20 mg/dL Creatinine 1.09 mg/dL Estimated GFR () 59.7 BUN/Creatinine Ratio 18.0 Glucose Level 169 mg/dL Calcium Level 9.4 mg/dL Total Bilirubin 0.4 mg/dL Aspartate Amino Transf (AST/SGOT) 25 U/L Alanine Aminotransferase (ALT/SGPT) 28 U/L Alkaline Phosphatase 101 U/L Total Creatine Kinase 85 U/L Troponin I < 0.02 ng/mL Total Protein 7.9 g/dL Albumin 3.5 g/dL Globulin 4.4 Sepsis Infection Criteria Pres: None Departure Time of Disposition: 09:03 Disposition: 70 DISC/XFER TO [facility] (Transfer to [facility], Dr. Noland accepting) Impression: Primary Impression: Syncope and collapse Condition: Stable Referrals: SHOSHANA GALDAMEZ AUDIT PARTNER (PCP) PRIMARY CARE PROVIDER Duration or Time Spent with Pa: 2 hours EMMA CEVALLOS DO Mar 29, 2019 07:51
[2019-03-29 08:00] LABS: BASOPHIL % 0.1 % (0.0-0.2); EOSINOPHIL % 0.1 % (0.0-5.0); HEMOGLOBIN 12.7 g/dL (12.0-15.0); LYMPHOCYTES # 1.2 10^3/uL (1.0-4.8); LYMPHOCYTES % 14.4 % (24.0-44.0); MEAN CELL HGB 29.3 pg (26-34); MEAN CELL HGB CONCENTRATION 33.3 g/dL (33-37); MEAN CORP VOLUME 87.8 fL (78-100); MEAN PLATELET VOLUME 9.7 fL (7.8-11.0); MONOCYTES # 0.5 10^3/uL (0.3-0.8); MONOCYTES % 5.6 % (5.0-12.0); NEUTROPHIL # 6.5 10^3/uL (1.8-7.7); NEUTROPHILS % 79.6 % (41.0-85.0); RED CELL DISTRIBUTION WIDTH 14.1 % (11.5-14.5); WHITE BLOOD CELL 8.2 10^3/uL (4.5-11.0)
[2019-03-29 08:01] VITALS: BP 144/83
[2019-03-29 08:25] LABS: ALANINE AMINOTRANSFERASE(ML) 28 U/L (12-78); ALKALINE PHOSPHATASE 101 U/L (50-136); ASPARTATE AMINO TRANSFERASE 25 U/L (0-35); CALCIUM 9.4 mg/dL (8.4-10.5); CARBON DIOXIDE 27.8 mmol/L (20.0-32); GLUCOSE 169 mg/dL (70-110)
--- NOTE | 2019-03-29 08:30 | NUR ---
WOUND CLEANED WOUND TO BACK OF LEFT SIDE OF HEAD. NO OPEN AREA, APPEARS TO BE ABRASION. DR CEVALLOS CAME TO ASSESS WOUND WELL. LEFT OPEN TO AIR.
[2019-03-29] MEDS ORDERED: TYLENOL PO STA (08:31)
--- NOTE | 2019-03-29 08:33 | DIREP ---
PROCEDURE:CT HEAD OR BRAIN W/O CONTRAST COMPARISON:[facility], CT, CT HEAD BRAIN W/O CONTRAST, 03/25/2019, 11:00 PM. [facility], CT, CT HEAD BRAIN W/O CONTRAST, 11/14/2018, 04:09 PM. INDICATIONS:syncope TECHNIQUE:CT images were created without intravenous contrast. The study was reviewed on brain, subdural and bone windows. FINDINGS: VENTRICLES:Mild ventriculomegaly. Mild periventricular white matter changes seen. 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 Minimal ischemic changes also seen in the left foot came and. Thalamus are intact. Degenerative calcifications in the right basal ganglia CEREBRUM:Note is made of effacement of sulci from the right frontal region. An extra-axial mass lesion should be excluded in a follow-up MRI with contrast enhancement is recommended. No acute infarct, or bleed is seen. No edema or midline shift is identified. No acute or chronic epidural, subdural subarachnoid hemorrhage is seen. CEREBELLUM:Negative. BRAINSTEM:Negative. BASAL CISTERNS:Negative. HEMORRHAGE:No MASS LESION:No ACUTE INFARCT:No SKULL:Normal. SINUSES:Normal. OTHER:None CONCLUSION:Effacement of sulci from the right frontal lobe. Recommend a follow-up MRI with contrast enhancement to rule out a mass lesion in the right frontal lobe. This appears more prominent since the last examination of November 2018. Old ischemic changes in the left basal ganglia and in the right anterior limb of the internal capsule. No intracranial bleed is identified. Dictated by: Checo Liang MD on 03/29/2019 at 08:29 AM
--- NOTE | 2019-03-29 08:38 | DIREP ---
PROCEDURE:CHEST 1 VIEW COMPARISON:[facility], CR, XRAY CHEST SINGLE VW, 03/25/2019, 07:47 PM. INDICATIONS:syncope FINDINGS: LUNGS/PLEURA:No significant pulmonary parenchymal abnormalities. No effusions. VASCULATURE:Normal. Unremarkable pulmonary vasculature. CARDIAC:Normal. No cardiac silhouette abnormality or cardiomegaly. MEDIASTINUM:Normal. No visible mass or adenopathy. BONES:Normal. No fracture or visible bony lesion. OTHER:EKG leads overlie the chest. CONCLUSION: 1. Normal chest. Dictated by: Keith Crawley M.D. on 03/29/2019 at 08:36 AM
[2019-03-29] MEDS ORDERED: TYLENOL PO ONE (08:39)
--- NOTE | 2019-03-29 09:00 | NUR ---
TRANSFER PT WILL BE TRANSFERRED TO [facility] ED, ACCEPTING MD IS DR. ALLISON.
[2019-03-29 09:05] VITALS: BP 155/70
[2019-03-29 09:12] LABS: BILIRUBIN,URINE NEGATIVE (NEGATIVE); UROBILINOGEN,URINE NORMAL (NEGATIVE)
[2019-03-29 09:14] LABS: APPEARANCE,URINE CLEAR (CLEAR); UA COLOR YELLOW (YELLOW)
--- NOTE | 2019-03-29 09:31 | NUR ---
TRANSFER EMS TO TAKE PT VIA AMBULANCE TO [facility] ER.
[2019-03-29] MEDS ORDERED: ATIVAN ONE (09:35)
[2019-03-29] MEDS ORDERED: ATIVAN IV STA (14:02)
== END 2019-03-29 09:41 | disposition other institution (70) ==
LOC: EDBD 07:35 → ER 07:35
DX: R55 Syncope and collapse (principal); E07.9 Disorder of thyroid, unspecified; E11.9 Type 2 diabetes mellitus without complications; I11.0 Hypertensive heart disease with heart failure; I25.10 Atherosclerotic heart disease of native coronary artery without angina pectoris; I50.9 Heart failure, unspecified; K21.9 Gastro-esophageal reflux disease without esophagitis; Z79.01 Long term (current) use of anticoagulants; Z79.899 Other long term (current) drug therapy; Z88.1 Allergy status to other antibiotic agents; Z88.2 Allergy status to sulfonamides; Z90.710 Acquired absence of both cervix and uterus; Z98.84 Bariatric surgery status
CPT/HCPCS: 36415; 70450; 71045; 80053; 81002; 82550; 84484; 85025; 85610; 85730; 93005; 96374; 99285; J2060

== ENCOUNTER → 2019-04-02 | Outpatient (CLI) | payer MEDICARE, MEDICAID ==
--- NOTE | 2019-04-02 14:34 | DIREP ---
PROCEDURE:CHEST 2 VIEWS COMPARISON:[facility], CR, XRAY CHEST SINGLE VW, 03/29/2019, 07:44 AM. INDICATIONS:PNEUMONIA, UNSPECIFIED ORGANISM FINDINGS: LUNGS/PLEURA:Senescent changes. Subtle strandy opacities at the medial left lung base may reflect atelectasis or potential subtle infiltrate in the appropriate clinical setting. VASCULATURE:Normal. Unremarkable pulmonary vasculature. CARDIAC:Normal. No cardiac silhouette abnormality or cardiomegaly. MEDIASTINUM:Normal. No visible mass or adenopathy. BONES:Mild degenerative changes of the spine. OTHER:Multiple surgical clips within the imaged upper abdomen. CONCLUSION: 1. Subtle strandy opacities at the medial left lung base may reflect atelectasis or potential subtle infiltrate in the appropriate clinical setting. Dictated by: Vic Jose M.D. On 04/02/2019 at 02:28 PM
== END | disposition home or self-care (01) ==
LOC: RAD 13:43
PROVIDERS: ATTEND Nurse Practitioner Family
DX: J18.9 Pneumonia, unspecified organism (principal)
CPT/HCPCS: 71046

== ENCOUNTER → 2019-04-11 | Outpatient (CLI) | payer MEDICARE, MEDICAID ==
[2019-04-11 14:21] LABS: BILIRUBIN,URINE NEGATIVE (NEGATIVE); UROBILINOGEN,URINE NORMAL (NEGATIVE)
[2019-04-11 14:22] LABS: APPEARANCE,URINE CLEAR (CLEAR); UA COLOR YELLOW (YELLOW)
== END | disposition home or self-care (01) ==
LOC: NPLAB 14:09
PROVIDERS: ATTEND Nurse Practitioner Family
DX: E87.4 Mixed disorder of acid-base balance (principal); N39.0 Urinary tract infection, site not specified
CPT/HCPCS: 81002; 84132

== ENCOUNTER → 2019-07-21 | Outpatient (CLI) | payer MEDICARE, MEDICAID | END | disposition home or self-care (01) | LOC: NPLAB 15:30 | PROVIDERS: ATTEND Nurse Practitioner Family | DX: R30.0 Dysuria (principal) | CPT/HCPCS: 87086 ==

== ENCOUNTER 2019-12-22 14:41 | Emergency (ER) | payer MEDICARE, MEDICAID ==
[~2019-12-22] VITALS: Ht 149.9 cm; Wt 117.0 kg
[2019-12-22 14:54] VITALS: BP 127/70
--- NOTE | 2019-12-22 14:59 | NUR ---
ARRIVAL PATIENT ARRIVED TO ED5 AMBULATORY, C/O OF CHEST PAIN FOR THE PAST 3 DAYS, WENT TO SEE HER PCP TODAY AND WAS SENT TO THE ED FOR EVAL.
[2019-12-22] MEDS ORDERED: NS 1000ML 1,000 ML IV STA (15:07)
--- NOTE | 2019-12-22 15:09 | ER.PDOC ---
General Chief Complaint: Chest Pain-Cardiac Nature Stated Complaint: CP Time seen by MD: 15:01 Source: patient Exam Limitations: no limitations History of Present Illness Initial Comments Patient c/o constant chest discomfort (heavines) x 2 days with SOB that is worse in the supine position Timing/Duration: constant (x 2 days) Severity/Quality: moderate Radiation: back Activities at Onset: none Prior CP/Workup: Cardiac Cath (was scheduled within past 6 months but cancelled d/t patient got sick) Nitro Today/Relief: No Nitro Taken Today Aspirin Today: No Aspirin Today Associated Symptoms: shortness of breath Allergies: Coded Allergies: ciprofloxacin (Verified Allergy, Unknown, 11/14/18) sulfamethoxazole (Verified Allergy, Unknown, 03/25/19) trimethoprim (Verified Allergy, Unknown, 03/25/19) Home Meds Reported Medications Isosorbide Mononitrate (ISOSORBIDE MONONITRATE) 10 Mg Tablet, 10 MG PO TID, TAB 03/25/19 Apixaban (Eliquis) 5 Mg Tablet, 5 MG PO BID, TABLET 03/25/19 Eyelid Cleanser Combination #9 (Systane) 1 Each Towelette, 1 EACH TP TID, TOWELETTE 03/25/19 Prednisolone Acetate (PREDNISOLONE ACETATE) 5 Ml Drops.susp, 2 DROP RIGHT EYE QID for 10 Days, #10 MILLILITER 0 Refills 03/25/19 Prednisolone Acetate (PREDNISOLONE ACETATE) 5 Ml Drops.susp, 2 DROP LEFT EYE QID for 10 Days, #10 MILLILITER 0 Refills 03/25/19 Losartan Potassium (LOSARTAN POTASSIUM) 100 Mg Tablet, 100 MG PO DAILY24, TAB 03/25/19 Loratadine (LORATADINE) 10 Mg Tab.rapdis, 10 MG PO DP, TAB 03/25/19 Pantoprazole Sodium (PANTOPRAZOLE SODIUM) 40 Mg Tablet.dr, 40 MG PO DAILY24 03/25/19 Levothyroxine Sodium (LEVOTHYROXINE SODIUM) 150 Mcg Tablet, 150 MCG PO DAILY24, TAB 03/25/19 Insulin Degludec (Tresiba) 100 Unit/Ml Vial, 10 UNIT SUBCUT DP 03/25/19 Past Medical History Medical History: congestive heart failure, diabetes, GERD, hypertension, renal disease, thyroid disease, other Surgical History: back, gastric bypass, hysterectomy Family History Significant Family History: no pertinent family hx Social History Smoking: non-smoker Alcohol Use: none Drug Use: none Constitutional: no symptoms reported EENTM: no symptoms reported Respiratory: shortness of breath (worse in supine position) Cardiovascular: chest pain (heaviness) Gastrointestinal: no symptoms reported Musculoskeletal: no symptoms reported Skin: no symptoms reported Psychiatric/Neurological: no symptoms reported Physical Exam General Appearance: No Apparent Distress Neck: Supple Respiratory: lungs clear, normal breath sounds, no respiratory distress, no accessory muscle use Cardiovascular: Regular Rate, Rhythm Gastrointestinal: Normal Bowel Sounds, No Pulsatile Mass, Non Tender Extremities: Normal Inspection, No Pedal Edema, No Calf Tenderness 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: No Motor/Sensory Deficits, Alert, Normal Mood/Affect Skin: Normal Color, Warm/Dry Results/Orders Results/Orders Vital Signs Date Time Temp Pulse Resp B/P (MAP) Pulse Ox O2 Delivery O2 Flow Rate FiO2 12/22/19 14:54 98.4 77 20 93 12/22/19 14:54 98.4 77 20 12/22/19 14:54 98.4 77 20 127/70 (89) 93 Room Air Progress Progress cardiac markers WNL, including BNP EKG/XRAY/CT/US EKG: NSR, no ST T wave changes XRAY: chest (normal) Departure Time of Disposition: 16:10 Disposition: 01 HOME, SELF-CARE Impression: Primary Impression: Chest pain Additional Impression: Dyspnea Condition: Stable Patient Instructions: Chest Pain (Nonspecific), Shortness of Breath Referrals: SHOSHANA GALDAMEZ PUBLIC HEALTH DENTIST (PCP) PRIMARY CARE PROVIDER Additional Instructions: Return to ER if you experience any difficulty breathing or swallowing, or for any emergent concerns. 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 Duration or Time Spent with Pa: 20 Problem Qualifiers Primary Impression: Chest pain Chest pain type: precordial pain Qualified Codes: R07.2 - Precordial pain Additional Impression: Dyspnea Dyspnea type: shortness of breath Qualified Codes: R06.02 - Shortness of breath EMMA CEVALLOS DO Dec 22, 2019 15:09
--- NOTE | 2019-12-22 15:10 | PCM.EKG ---
[facility] Test Date: 2019-12-22 Test Time: 14:47:54 Pat Name: ERICH LAI Department: Room: Gender: F Paratransit Driver: RT : 1945 Requested By: EMMA CEVALLOS Order Number: [id number] Reading MD: Measurements Intervals [place] Rate: 71 P: 43 MN: 189 QRS: -57 QRSD: 108 T: 65 QT: 473 QTc: 515 Interpretive Statements Sinus rhythm Left anterior fascicular block Abnormal R-wave progression, late transition Borderline T abnormalities, anterior leads Prolonged QT interval Compared to ECG 03/29/2019 07:43:51 Prolonged QT interval now present First degree AV block no longer present T-wave abnormality still present Please click the below link to view image of tracing.
[2019-12-22] MEDS ORDERED: NS 1000ML 1,000 ML ONE (15:13)
--- NOTE | 2019-12-22 15:27 | DIREP ---
PROCEDURE:CHEST 1 VIEW COMPARISON:[facility], CR, XRAY CHEST 2 VWS, 04/02/2019, 01:58 PM. INDICATIONS:chest pain FINDINGS: LUNGS/PLEURA:No significant pulmonary parenchymal abnormalities. No effusions. VASCULATURE:Normal. Unremarkable pulmonary vasculature. CARDIAC:Normal. No cardiac silhouette abnormality or cardiomegaly. Tortuous aorta. MEDIASTINUM:Normal. No visible mass or adenopathy. BONES:Normal. No fracture or visible bony lesion. OTHER:EKG leads overlie the chest. CONCLUSION:No acute cardiopulmonary abnormalities. Dictated by: Eron Stark M.D. on 12/22/2019 at 03:23 PM
[2019-12-22 15:29] LABS: BASOPHIL % 0.5 % (0.0-0.2); EOSINOPHIL # 0.3 10^3/uL (0.0-0.2); EOSINOPHIL % 4.9 % (0.0-5.0); LYMPHOCYTES # 2.35 10^3/uL1 (1.0-4.8); LYMPHOCYTES % 37.2 % (24.0-44.0); MEAN CORP HGB 28.7 pg (26-34); MONOCYTES # 0.5 10^3/uL (0.3-0.8); MONOCYTES % 7.3 % (5.0-12.0); NEUTROPHIL # 3.2 10^3/uL (1.8-7.7); NEUTROPHILS % 49.8 % (41.0-85.0); RED CELL DISTRIBUTION WIDTH 13.7 % (11.5-14.5)
[2019-12-22 16:07] LABS: ALANINE AMINOTRANSFERASE(ML) 31 U/L (12-78); ALKALINE PHOSPHATASE 104 U/L (50-136); ASPARTATE AMINO TRANSFERASE 31 U/L (0-35); CALCIUM 8.8 mg/dL (8.4-10.5); CARBON DIOXIDE 26.9 mmol/L (20.0-32); GLUCOSE 193 mg/dL (70-110)
[2019-12-22] MEDS: ASPIRIN PO PRN ×2 (16:18→16:30)
[2019-12-22 16:28] VITALS: BP 109/60
[2019-12-22] MEDS ORDERED: ASPIRIN ONE (16:28)
== END 2019-12-22 16:35 | disposition home or self-care (01) ==
LOC: ER 14:41
DX: I11.0 Hypertensive heart disease with heart failure (principal); I50.9 Heart failure, unspecified; E07.9 Disorder of thyroid, unspecified; E11.9 Type 2 diabetes mellitus without complications; K21.9 Gastro-esophageal reflux disease without esophagitis; Z79.01 Long term (current) use of anticoagulants; Z79.4 Long term (current) use of insulin; Z79.899 Other long term (current) drug therapy; Z88.1 Allergy status to other antibiotic agents; Z88.2 Allergy status to sulfonamides; Z90.710 Acquired absence of both cervix and uterus; Z98.84 Bariatric surgery status
CPT/HCPCS: 36415; 71045; 80053; 82550; 82553; 83880; 84484; 85025; 85379; 85610; 85730; 86677; 93005; 99285; J7030

== ENCOUNTER → 2020-02-12 | Outpatient (CLI) | payer MEDICARE, MEDICAID ==
[~2020-02-12] MED LIST changes: -PANT40TA5 PO; +PANT40TA6 PO
--- NOTE | 2020-02-12 15:38 | DIREP ---
PROCEDURE:CHEST 2 VIEWS COMPARISON:[facility], CR, XRAY CHEST SINGLE VW, 12/22/2019, 02:56 PM. INDICATIONS:J20.8 ACUTE BRONCHITIS FINDINGS: LUNGS/PLEURA:Lungs are well-expanded and clear. No peribronchial cuffing is seen in the lung bases. Elevated right hemidiaphragm. No ground-glass infiltrates or pneumonia is seen. No heart failure or effusions identified VASCULATURE:Normal. Unremarkable pulmonary vasculature. CARDIAC:Normal. No cardiac silhouette abnormality or cardiomegaly. MEDIASTINUM:Normal. No visible mass or adenopathy. BONES:Normal. No fracture or visible bony lesion. Mild DJD in the thoracic spine. OTHER:Negative. CONCLUSION:No acute disease. Dictated by: Checo Liang MD on 02/12/2020 at 03:33 PM
== END | disposition home or self-care (01) ==
LOC: RAD 14:49
PROVIDERS: ATTEND Nurse Practitioner Family
DX: J20.8 Acute bronchitis due to other specified organisms (principal)
CPT/HCPCS: 71046

== ENCOUNTER 2020-03-17 17:04 | Observation (INO) | payer MEDICARE, MEDICAID ==
[~2020-03-17] VITALS: Ht 149.9 cm; Wt 93.4 kg
[2020-03-17 17:05] VITALS: BP 115/70
[2020-03-17 17:12] VITALS: BP 115/70
[2020-03-17] MEDS ORDERED: DECADRON IV STA (17:20)
[2020-03-17] MEDS ORDERED: ROCEPHIN 1,000 MG in NS 100ML 100 ML IV STA (17:20)
--- NOTE | 2020-03-17 17:22 | ER.PDOC ---
General Chief Complaint: General Complaint Stated Complaint: SYNCOPAL EPISODE Time seen by MD: 17:15 Source: patient Exam Limitations: no limitations History of Present Illness Initial Comments patient c/o feeling poorly x 2 weeks; she has a severe headache and had difficulty speaking earlier this week for 1 hour; she is globally weak and has difficulty ambulating; she has fever, cough, SOB Timing/Duration: gradual Severity: moderate Associated Symptoms: fever/chills, sore throat, cough, mild SOB, hurts to breath Allergies: Coded Allergies: ciprofloxacin (Verified Allergy, Unknown, 11/14/18) sulfamethoxazole (Verified Allergy, Unknown, 03/25/19) trimethoprim (Verified Allergy, Unknown, 03/25/19) Home Meds Reported Medications Isosorbide Mononitrate (ISOSORBIDE MONONITRATE) 10 Mg Tablet, 10 MG PO TID, TAB 03/25/19 Apixaban (Eliquis) 5 Mg Tablet, 5 MG PO BID, TABLET 03/25/19 Eyelid Cleanser Combination #9 (Systane) 1 Each Towelette, 1 EACH TP TID, TOWELETTE 03/25/19 Prednisolone Acetate (PREDNISOLONE ACETATE) 5 Ml Drops.susp, 2 DROP RIGHT EYE QI D for 10 Days, #10 MILLILITER 0 Refills 03/25/19 Prednisolone Acetate (PREDNISOLONE ACETATE) 5 Ml Drops.susp, 2 DROP LEFT EYE QID for 10 Days, #10 MILLILITER 0 Refills 03/25/19 Losartan Potassium (LOSARTAN POTASSIUM) 100 Mg Tablet, 100 MG PO DAILY24, TAB 03/25/19 Loratadine (LORATADINE) 10 Mg Tab.rapdis, 10 MG PO DP, TAB 03/25/19 Pantoprazole Sodium (PANTOPRAZOLE SODIUM) 40 Mg Tablet.dr, 40 MG PO DAILY24 03/25/19 Levothyroxine Sodium (LEVOTHYROXINE SODIUM) 150 Mcg Tablet, 150 MCG PO DAILY24, TAB 03/25/19 Insulin Degludec (Tresiba) 100 Unit/Ml Vial, 10 UNIT SUBCUT DP 03/25/19 Constitutional: diaphoresis, fever, malaise EENTM: nose congestion, throat pain Respiratory: cough, shortness of breath Cardiovascular: no symptoms reported Gastrointestinal: no symptoms reported Genitourinary: no symptoms reported Skin: no symptoms reported Psychiatric/Neurological: headache, other (for 1 hour one day earlier this week she had difficulty speaking) All Other Systems: Reviewed and Negative Past Medical History Medical History: congestive heart failure, diabetes, hypertension, other Surgical History: appendectomy, cholecystectomy, gastric bypass Family History Significant Family History: no pertinent family hx Social History Smoking: non-smoker Alcohol Use: none Drug Use: none Physical Exam General Appearance: alert, no distress Eye: lids & conjunct. nml, PERRL, no nystagmus Ear: ear nml Nose: nose nml Throat: pharynx nml, airway nml Neck: nml inspection, supple Respiratory: no resp.distress, breath sounds nml Abdomen: non-tender, no organomegaly CVS: reg rate & rhythm, heart sounds nml Skin: color nml, no rash, warm/dry Extremities: non-tender, nml ROM NEURO/PSYCH: oriented x 3, CN's nml as tested, motor nml Results/Orders Results/Orders Orders - LANA PETE MD Covid19 Antigen Joyce Belkys (03/17/20 21:10) Vital Signs Date Time Temp Pulse Resp B/P (MAP) Pulse Ox O2 Delivery O2 Flow Rate FiO2 03/17/20 17:12 99.6 86 20 115/70 (85) 89 Room Air 03/17/20 17:05 99.6 81 20 89 03/17/20 17:05 99.6 86 20 Administered Medications Medications (Trade) Dose Ordered Sig/Keith Route PRN Reason Start Time Stop Time Status Last Admin Dose Admin Ceftriaxone Sodium 1000 mg/ Sodium Chloride 100 ml @ 100 mls/hr STAT STAT IV 03/17/20 17:20 03/17/20 18:19 UNV 03/17/20 18:13 100 MLS/HR Laboratory Tests Test 03/17/20 17:40 03/17/20 17:47 03/17/20 18:39 White Blood Count 7.4 10^3/uL (4.5-11.0) Red Blood Count 4.91 10^6/uL (4.00-5.20) Hemoglobin 14.2 g/dL (12.0-15.0) Hematocrit 42.3 % (36.0-46.0) Mean Corpuscular Volume 86.2 fL (78-100) Mean Corpuscular Hemoglobin 28.9 pg (26-34) Mean Corpuscular Hemoglobin Concent 33.6 g/dL (33-36.5) Red Cell Distribution Width 14.0 % (11.5-14.5) Platelet Count 203 10^3/uL (150-400) Mean Platelet Volume 10.3 fL (7.8-11.0) Neutrophils (%) (Auto) 69.8 % (41.0-85.0) Lymphocytes (%) (Auto) 18.2 % (24.0-44.0) L Monocytes (%) (Auto) 10.7 % (5.0-12.0) Neutrophils # (Auto) 5.1 10^3/uL (1.8-7.7) Lymphocytes # (Auto) 1.34 10^3/uL1 (1.0-4.8) Monocytes # (Auto) 0.8 10^3/uL (0.3-0.8) Absolute Immature Granulocyte (auto 0.03 10^3 u/L (0-2) Absolute Eosinophils (auto) 0.0 10^3/uL (0.0-0.2) Immature Granulocytes % 0.40 % (0.00-0.50) Eosinophils % 0.5 % (0.0-5.0) Basophils % 0.4 % (0.0-0.2) H Basophils # 0.0 10^3/uL (0.0-0.1) Prothrombin Time 12.0 SEC (9.3-11.3) H Prothrombin Time INR (Non-Therap) 1.2 Activated Partial Thromboplast Time 28.5 SEC (24.67-30.72) D-Dimer 0.23 mg/L (0.19-0.49) Sodium Level 135 mmol/L (132-145) Potassium Level 2.6 mmol/L (3.6-5.2) L Chloride Level 96.0 mmol/L (96-109) Carbon Dioxide Level 26.5 mmol/L (20.0-32) Anion Gap 15.1 Blood Urea Nitrogen 16 mg/dL (7-18) Creatinine 1.20 mg/dL (0.59-1.40) Estimated GFR () 53.4 (>/=60) Est GFR (CKD-EPI)(Non-Afr Luxembourger) 44.2 (>/=60) BUN/Creatinine Ratio 13.0 Glucose Level 182 mg/dL (70-110) H Lactic Acid Level 1.6 mmol/L (0.5-1.9) Calcium Level 9.4 mg/dL (8.4-10.5) Total Bilirubin 0.8 mg/dL (0.2-1.0) Aspartate Amino Transferase (AST) 37 U/L (0-35) H Alanine Aminotransferase (ALT) 26 U/L (12-78) Alkaline Phosphatase 92 U/L (50-136) Total Creatine Kinase 60 U/L (26-192) Creatine Kinase MB < 0.5 ng/mL (0.5-3.6) L Troponin I < 0.02 ng/mL (0.00-0.05) Pro-B-Type Natriuretic Peptide 103 pg/mL (0-125) Total Protein 7.7 g/dL (6.4-8.2) Albumin 3.4 g/dL (3.4-5.0) Globulin 4.3 Albumin/Globulin Ratio 0.790 Blood Gas Sample Site RT RADIAL ARTERY Blood pH 7.451 (7.350-7.450) Blood Gas PCO2 39.8 mmHg (35.0-45.0) Blood Gas PO2 54.6 mmHg (80.0-100.0) L Blood Gas HCO3 27.1 mmol/L (22.0-26.0) H Blood Gas Base Excess 3.0 mmol/L (-2.0-2.0) H Levi Test POSITIVE Arterial Blood Oxygen Saturation 88.1 % (94.0-97.00) L Deoxyhemoglobin 11.7 % (0.0-5.0) H Carboxyhemoglobin 1.1 % (0.0-3.9) Methemoglobin 0.5 % (0.00-5.0) Total Hemoglobin 14.9 % (12.0-17.8) Total Oxygen Concentration 18.1 % (13.5-17.5) H Blood Gas Temperature 37 Oxygen Delivery Method ROOM AIR FiO2 21 % (20-101) Total Carbon Dioxide 28.3 mmol/L (23-27) H Influenza Type A Antigen NEGATIVE (NEG) Influenza B Immunofluorescence NEGATIVE (NEG) Group A Streptococcus Screen POSITIVE (NEGATIVE) Progress Progress final disposition Dr. Bernal Patient uses 2L Oxygen at home. CT head: Effacement of sulci in the anterior/superior right frontal region is again noted which suggests the likelihood of an extra-axial mass such as a meningioma in the right frontal lobe. Contrast-enhanced CT scan or MRI scan of the brain suggested for follow-up. I do not see a significant change since 03/29/2019. EKG/XRAY/CT/US EKG Comments: NSR, VR 88, LAFB, no acute STT changes ER DEPART Departure Time of Disposition: 21:53 Disposition: 09 ADMITTED INPATIENT Impression: Primary Impression: Acute hypokalemia Additional Impressions: Generalized weakness Strep pharyngitis COVID-19 ruled out Condition: Stable Referrals: SHOSHANA GALDAMEZ CERAMIC ENGINEER (PCP) PRIMARY CARE PROVIDER Comments Admitted to Dr. Stone Duration or Time Spent with Pa: 60 min Problem Qualifiers EMMA CEVALLOS DO Mar 17, 2020 17:22 LANA PETE MD Mar 17, 2020 21:56
[2020-03-17 17:51] LABS: BASOPHIL % 0.4 % (0.0-0.2); EOSINOPHIL % 0.5 % (0.0-5.0); LYMPHOCYTES # 1.34 10^3/uL1 (1.0-4.8); LYMPHOCYTES % 18.2 % (24.0-44.0); MEAN CORP HGB 28.9 pg (26-34); MONOCYTES # 0.8 10^3/uL (0.3-0.8); MONOCYTES % 10.7 % (5.0-12.0); NEUTROPHIL # 5.1 10^3/uL (1.8-7.7); NEUTROPHILS % 69.8 % (41.0-85.0); PLATELET COUNT 203 10^3/uL (150-400)
[2020-03-17 17:56] LABS: ABG PCO2 39.8 mmHg (35.0-45.0); ABG PH 7.451 (7.350-7.450); HCO3act 27.1 mmol/L (22.0-26.0); pO2 54.6 mmHg (80.0-100.0)
[2020-03-17] MEDS ORDERED: NS 100ML 100 ML IV ONE (18:06)
[2020-03-17] MEDS ORDERED: ROCEPHIN ONE (18:06)
[2020-03-17 18:21] LABS: ALANINE AMINOTRANSFERASE(ML) 26 U/L (12-78); ALKALINE PHOSPHATASE 92 U/L (50-136); ASPARTATE AMINO TRANSFERASE 37 U/L (0-35); CALCIUM 9.4 mg/dL (8.4-10.5); CARBON DIOXIDE 26.5 mmol/L (20.0-32); GLUCOSE 182 mg/dL (70-110)
--- NOTE | 2020-03-17 18:29 | DIREP ---
PROCEDURE:CHEST 1 VIEW COMPARISON:[facility], CR, XRAY CHEST 2 VWS, 02/12/2020, 03:15 PM. INDICATIONS:dyspnea FINDINGS: LUNGS/PLEURA:No significant pulmonary parenchymal abnormalities. No effusions. VASCULATURE:Normal. Unremarkable pulmonary vasculature. CARDIAC:Normal. No cardiac silhouette abnormality or cardiomegaly. MEDIASTINUM:Normal. No visible mass or adenopathy. BONES:Mild degenerative disc disease and spondylosis without visible acute abnormalities. OTHER:EKG leads overlie the chest. Possible retrocardiac hiatal hernia. CONCLUSION:No acute cardiopulmonary disease. No change. Dictated by: Galileo Varghese M.D. on 03/17/2020 at 06:27 PM
--- NOTE | 2020-03-17 18:32 | PCM.EKG ---
[facility] Test Date: 2020-03-17 Test Time: 17:44:13 Pat Name: ERICH LAI Department: Room: 339 Gender: F Head Up Operator: AM : 1945 Requested By: EMMA ARAMBULA Order Number: [id number] Reading MD: Cary Arambula Measurements Intervals [place] Rate: 88 P: 44 [place]: 170 QRS: -77 QRSD: 100 T: 87 QT: 398 QTc: 482 Interpretive Statements Sinus rhythm Left anterior fascicular block Abnormal R-wave progression, late transition Borderline repolarization abnormality Compared to ECG 12/22/2019 14:47:54 T-wave abnormality no longer present Prolonged QT interval no longer present Electronically Signed On 03-18-2020 7:02:58 MANAGER CUSTOMER by Cary Arambula Please click the below link to view image of tracing.
--- NOTE | 2020-03-17 18:57 | DIREP ---
PROCEDURE:CT HEAD WITHOUT CONTRAST TECHNIQUE:Axial cuts were obtained through the head, without intravenous contrast material. The images were viewed at brain and bone settings. COMPARISON:None. INDICATIONS:headache FINDINGS: VENTRICLES:Normal. CEREBRUM:There is no evidence of intraparenchymal or extra-axial hemorrhage. Effacement of cerebral sulci in the anterior/superior right frontal lobe is noted which may represent an extra-axial mass such as a meningioma. Contrast-enhanced CT scan or MRI scan is suggested for follow-up. Tiny bilateral basal ganglia lacunar infarcts are unchanged. CEREBELLUM:Normal. BRAINSTEM:Normal. SKULL:Normal. SINUSES:Normal. OTHER:Negative. CONCLUSION: 1. Effacement of sulci in the anterior/superior right frontal region is again noted which suggests the likelihood of an extra-axial mass such as a meningioma in the right frontal lobe. Contrast-enhanced CT scan or MRI scan of the brain suggested for follow-up. I do not see a significant change since 03/29/2019. Dictated by: Oziel Donaldson M.D. on 03/17/2020 at 06:52 PM
[2020-03-17] MEDS ORDERED: KLOR-CON 10 PO STA (21:56)
[2020-03-17] MEDS ORDERED: NS 1000ML/KCL 20MEQ 1,000 ML IV STA (21:56)
[2020-03-17] MEDS ORDERED: BUSP10TA PO (22:07)
[2020-03-17] MEDS ORDERED: LORA10TA62 PO (22:07)
[2020-03-17] MEDS ORDERED: VITA1TAB31 PO (22:07)
[2020-03-17] MEDS ORDERED: DULO30CA2 PO (22:07)
[2020-03-17] MEDS ORDERED: FLUT15.812 (22:07)
[2020-03-17] MEDS ORDERED: CHLO25TA PO (22:07)
[2020-03-17] MEDS ORDERED: ASPI-929 PO (22:07)
[2020-03-17] MEDS ORDERED: TRAM50TA PO (22:07)
[2020-03-17] MEDS ORDERED: ESOM40CA PO (22:07)
[2020-03-17] MEDS ORDERED: MONT10TA11 PO (22:07)
[2020-03-17] MEDS ORDERED: ISOS30TA4 PO (22:07)
[2020-03-17] MEDS ORDERED: LOSA50TA14 PO (22:07)
[2020-03-17] MEDS ORDERED: PREG200C PO (22:07)
[2020-03-17] MEDS ORDERED: APIX5TAB PO (22:07)
[2020-03-17] MEDS ORDERED: NS 1000ML/KCL 20MEQ 1,000 ML IV ONE (22:43)
[2020-03-17] MEDS ORDERED: KLOR-CON 10 PO ONE (22:43)
--- NOTE | 2020-03-17 23:20 | NUR ---
Received pt on the floor from the ER at this time. Received report from CHACHO Motley. Pt shows no s/s of acute discomfort at this time. VS WNL at this time. Bed low, locked, call light w/in reach. Will continue to monitor.
[2020-03-17 23:52] VITALS: BP 117/79
[2020-03-18] MEDS ORDERED: ULTRAM PO PRN (01:00)
[2020-03-18] MEDS ORDERED: REMDESIVIR (EUA) 200 MG in NS 250ML 250 ML IV SCH (02:00)
[2020-03-18] MEDS ORDERED: LOVENOX SQ SCH (02:00)
[2020-03-18] MEDS ORDERED: NS 100ML 100 ML IV ONE (02:30)
[2020-03-18] MEDS ORDERED: LOVENOX SQ ONE (02:30)
--- NOTE | 2020-03-18 02:48 | PCM.HP ---
History of Present Illness Reason for Visit: (1) Hypokalemia ICD Code: E87.6 - Hypokalemia SNOMED: 57447877 (2) Fibromyalgia ICD Code: M79.7 - Fibromyalgia SNOMED: 616497010 (3) Hypertension ICD Code: I10 - Essential (primary) hypertension SNOMED: 39006490 (4) Type II diabetes mellitus ICD Code: E11.9 - Type 2 diabetes mellitus without complications SNOMED: 71845111 (5) Allergies ICD Code: T78.40XA - Allergy, unspecified, initial encounter SNOMED: 231848841 (6) Atrial fibrillation ICD Code: I48.91 - Unspecified atrial fibrillation SNOMED: 59686093 (7) Chronic pain ICD Code: G89.29 - Other chronic pain SNOMED: 27102506 (8) GERD (gastroesophageal reflux disease) ICD Code: K21.9 - Gastro-esophageal reflux disease without esophagitis SNOMED: 478400454 (9) Depression ICD Code: F32.9 - Major depressive disorder, single episode, unspecified SNOMED: 22240715 (10) COVID-19 ICD Code: U07.1 - COVID-19 SNOMED: 833056053 Hx of Present Illness Patient is a 74-year-old female with a past medical history of fibromyalgia, atrial fibrillation on Eliquis (but not a rate controlling agent), type 2 diabetes, GERD, allergies, hypertension who presents to the emergency department for feeling unwell. Patient indicates that she has just felt fatigued in the past 3 days. Patient recently had a COVID-19 test 2 weeks ago that was read as negative at an outside facility. Patient indicates that she has been undergoing intermittent fevers but no denies chest pain, shortness of breath, nausea, vomiting, diarrhea, hematuria, dysuria, melena, hematochezia. Patient states that she takes multiple medications and has been compliant with taking her medications every day. In the emergency department, patient was found to have a positive COVID-19 test and was put on precautions. Patient received 40 mEq of IV potassium chloride and 40 mEq of p.o. potassium chloride. Patient was otherwise hemodynamically stable but admitted to telemetry for cardiac monitoring giving hypokalemia.EKG performed showing normal sinus rhythm with a ventricular rate of 88. PSH: Jeremias-thyroidectomy, Hysterectomy Medications: Med - rec uptodate with exception of insulin (she does not know her regimen - gets meds from [facility] pharmacy in [place]) Allergies: cipro, bactrim FHx: Non-contributory SHx: Denies tobacco, alcohol, illicit drug use or IV drug use Vaccines/Immunizations up-to-d: Yes Travel History [place] RISK:Travel to/contact w: No Review of Systems Constitutional: Chills, Weakness; No: Fever, Sweats, Malaise, Other Eyes: No: Pain, Vision change, Conjunctivae inflammation, Eyelid inflammation, Other, Redness ENT: No: Ear pain, Ear discharge, Nose pain, Nose discharge, Nose congestion, Mouth pain, Mouth swelling, Throat pain, Throat swelling, Other Respiratory: No: Cough, Dry, Shortness of breath, SOB with excertion, Wheezing, Hemoptysis, Pleuritic Pain, Sputum, Wheezing, Other Cardiovascular: No: Chest Pain, Palpitations, Orthopnea, Paroxysmal Noc. Dyspnea, Edema, Lt Headedness, Other Gastrointestinal: No: Nausea, Vomiting, Abdominal Pain, Diarrhea, Constipation, Melena, Hematochezia, Other Genitourinary: No Dysuria, No Frequency, No Incontinence, No Hematuria, No Retention, No Other Musculoskeletal: No: other, neck pain, shoulder pain, arm pain, back pain, hand pain, leg pain, foot pain Skin: No: Rash, Lesions, Jaundice, Bruising, Other Allergies: Coded Allergies: ciprofloxacin (Verified Allergy, Unknown, 11/14/18) sulfamethoxazole (Verified Allergy, Unknown, 03/25/19) trimethoprim (Verified Allergy, Unknown, 03/25/19) Scheduled Apixaban (Eliquis), 5 MG PO BID, (Reported) Aspirin (Aspirin Ec), 1 TAB PO DAILY, (Reported) Buspirone Hcl (Buspirone Hcl), 1 TAB PO BID, (Reported) Chlorthalidone (Chlorthalidone), 1 TAB PO DAILY, (Reported) Duloxetine Hcl (Cymbalta), 3 CAP PO DAILY, (Reported) Esomeprazole Magnesium (Nexium), 1 CAP PO DAILY, (Reported) Fluticasone Propionate (Allergy Relief), 2 SPR NA QD, (Reported) Isosorbide Mononitrate (Isosorbide Mononitrate Er), 1 TAB PO DAILY, (Reported) Loratadine (Loratadine), 1 TAB PO QD, (Reported) Losartan Potassium (Losartan Potassium), 1 TAB PO DAILY, (Reported) Montelukast Sodium (Montelukast Sodium), 1 TAB PO DAILY, (Reported) Pregabalin (Lyrica), 1 CAP PO BID, (Reported) Vitamin D3/Menaquinone 7 (D3 + K2 Dots 1,000 Units Tab), 1 TAB PO QD, (Reported) Scheduled PRN Tramadol Hcl (Tramadol Hcl), 1 TAB PO Q8HR PRN for PAIN 1 - 3, (Reported) Discontinued Medications Apixaban (Eliquis), 5 MG PO BID, (Reported) Discontinued Reason: No Longer Taking Eyelid Cleanser Combination #9 (Systane), 1 EACH TP TID, (Reported) Discontinued Reason: No Longer Taking Insulin Degludec (Tresiba), 10 UNIT SUBCUT DP, (Reported) Discontinued Reason: No Longer Taking Isosorbide Mononitrate (Isosorbide Mononitrate), 10 MG PO TID, (Reported) Discontinued Reason: No Longer Taking Levothyroxine Sodium (Levothyroxine Sodium), 150 MCG PO DAILY24, (Reported) Discontinued Reason: No Longer Taking Loratadine (Loratadine), 10 MG PO DP, (Reported) Discontinued Reason: No Longer Taking Losartan Potassium (Losartan Potassium), 100 MG PO DAILY24, (Reported) Discontinued Reason: No Longer Taking Pantoprazole Sodium (Pantoprazole Sodium), 40 MG PO DAILY24, (Reported) Discontinued Reason: Discontinue Prednisolone Acetate (Prednisolone Acetate), 2 DROP LEFT EYE QID, (Reported) Discontinued Reason: Discontinue Prednisolone Acetate (Prednisolone Acetate), 2 DROP RIGHT EYE QID, (Reported) Discontinued Reason: Discontinue VTE VTE Risk Total Score: 2 VTE Risk Score VTE Risk: Score 0-1 = Low Risk (Aggressive mobilization; early ambulation; no VTE prophylaxis required) Score 2: Moderate Risk (Intermittent/Pneumatic Compression Device OR Lovenox/Heparin/Coumadin) Score 3-4: High Risk (Intermittent/Pneumatic Compression Device AND Lovenox/Heparin/Coumadin) Score > or =5: Highest Risk (Intermittent/Pneumatic Compression Device AND Lovenox/Heparin/Coumadin) VTE VTE Present on Admission: No Currently receiving anticoagul: Yes VTE Risk Total Score: 2 Exam Vital Signs Vital Signs Date Time Temp Pulse Resp B/P (MAP) Pulse Ox O2 Delivery O2 Flow Rate FiO2 03/17/20 23:52 97.8 72 16 117/79 (92) 94 Nasal Canula 2.00 General Appearance: Alert, Oriented X3, Cooperative, No acute distress HEENT: Atraumatic, PERRLA, EOMI, Mucous membr. moist/pink Respiratory: Clear to auscultation, Normal air movement Cardiovascular: Regular rate, Normal S1, Normal S2 Abdominal: Normal bowel sounds, Soft, No tenderness Extremities: Normal pulses, No tenderness/swelling Skin: No rash, No lesions Neuro: Normal speech Psych/Mental Status: Mental status NL, Mood NL Assessment/Plan Assessment/Plan Assessment/Plan Fatigue/Hypokalemia - Fatigue most likely secondary to hypokalemia with potassium level of 2.6 on arrival. This is most likely secondary to medication causing hypokalemia. Patient currently takes chlorthalidone and is supposed to be taking a potassium supplement but cannot remember if she takes a potassium supplement or not as of now. After potassium repletion patient actually/instantly felt better. Will order for magnesium level for the morning. Patient will have received 120 mEq of potassium chloride by the morning. After that please repeat labs. COVID 19 - no chest x ray findings. Patient had previous COVID-19 test 2 weeks ago that was negative. NO INDICATION FOR REMDESEVIR, DEXAMETHASONE, OR CONVALESCENT PLASMA. If patient develops hyper inflammatory response and requiring over 6 L of oxygen then will consider continuing remdesivir, dexamethasone and convalesc ent plasma. We will stop antibiotics at this time as patient received 1 dose of ceftriaxone from the emergency department. However, there is no indication for antibiotics so will not continue. No leukocytosis. Ordered for procalcitonin in the AM. Atrial Fibrillation Currently on Eliquis 5 mg twice daily. Patient is not on a rate controlling agent for atrial fibrillation however, patient is in normal sinus rhythm on EKG during admission. Cardiac monitoring. Hypertension - on chlorthalidone 25 mg qD, Isosorbide mononitrate 30 mg daily ER, losartan 50 mg once daily Fibromyalgia - currently on Duloxetine 90 mg once daily as well as Lyrica 200 mg BID GERD - continue omeprazole 40 mg qD Allergies - hold montelukast and fluticasone unless patient develops symptoms Patient History: Unknown 34 MOTHER 35 FATHER PATIENCE STEPHENS MD Mar 18, 2020 02:48
[2020-03-18 04:41] VITALS: BP 111/67
[2020-03-18] MEDS ORDERED: KLOR-CON 10 PO ONE (05:00)
[2020-03-18] MEDS ORDERED: MAGNESIUM SULFATE 50 ML IV ONE ×2 (08:00→14:30)
[2020-03-18] MEDS ORDERED: DEXAMETHASONE 10 MG/ML VIAL IV SCH (09:00)
[2020-03-18] MEDS ORDERED: FLONASE NS SCH (09:00)
[2020-03-18] MEDS: ELIQUIS PO SCH ×2 (09:44→20:22)
[2020-03-18] MEDS: SINGULAIR PO SCH (09:44)
[2020-03-18] MEDS: COZAAR PO SCH (09:44)
[2020-03-18] MEDS: CHLORTHALIDONE PO SCH (09:45)
[2020-03-18] MEDS: ZINC SULFATE PO SCH (09:45)
[2020-03-18] MEDS: CYMBALTA PO SCH (09:45)
[2020-03-18] MEDS: IMDUR PO SCH (09:45)
[2020-03-18] MEDS: BUSPAR PO SCH ×2 (09:45→20:21)
[2020-03-18] MEDS: PROTONIX PO SCH (09:45)
[2020-03-18] MEDS: ASPIRIN EC PO SCH (09:45)
[2020-03-18] MEDS: VITAMIN D PO SCH (09:59)
[2020-03-18] MEDS: CLARITIN PO SCH (09:59)
[2020-03-18] MEDS: LYRICA PO SCH ×2 (09:59→20:22)
[2020-03-18 10:04] VITALS: BP 125/85
[2020-03-18 12:38] LABS: CALCIUM 8.4 mg/dL (8.4-10.5)
[2020-03-18 13:30] VITALS: BP 107/64
--- NOTE | 2020-03-18 14:29 | PRM.PN ---
Subjective Subjective Date: Mar 18, 2020 Time: 07:45 Subjective 74-year-old female presented to [facility] with hypokalemia and Covid +2 L nasal cannula no acute distress noted vital signs stable Patient History: Unknown 32 MOTHER 33 FATHER VTE VTE Risk Total Score: 2 VTE Risk Score VTE Risk: Score 0-1 = Low Risk (Aggressive mobilization; early ambulation; no VTE prophylaxis required) Score 2: Moderate Risk (Intermittent/Pneumatic Compression Device OR Lovenox/Heparin/Coumadin) Score 3-4: High Risk (Intermittent/Pneumatic Compression Device AND Lovenox/Heparin/Coumadin) Score > or =5: Highest Risk (Intermittent/Pneumatic Compression Device AND Lovenox/Heparin/Coumadin) Review of Systems Constitutional: Chills, Weakness; No: Fever, Sweats, Malaise, Other Eyes: No: Pain, Vision change, Conjunctivae inflammation, Eyelid inflammation, Other, Redness ENT: No: Ear pain, Ear discharge, Nose pain, Nose discharge, Nose congestion, Mouth pain, Mouth swelling, Throat pain, Throat swelling, Other Respiratory: No: Cough, Dry, Shortness of breath, SOB with excertion, Wheezing, Hemoptysis, Pleuritic Pain, Sputum, Wheezing, Other Cardiovascular: No: Chest Pain, Palpitations, Orthopnea, Paroxysmal Noc. Dyspnea, Edema, Lt Headedness, Other Gastrointestinal: No: Nausea, Vomiting, Abdominal Pain, Diarrhea, Constipation, Melena, Hematochezia, Other Genitourinary: No Dysuria, No Frequency, No Incontinence, No Hematuria, No Retention, No Other Musculoskeletal: No: other, neck pain, shoulder pain, arm pain, back pain, hand pain, leg pain, foot pain Skin: No: Rash, Lesions, Jaundice, Bruising, Other Neurological: No: Weakness, Numbness, Incoordination Allergies: Coded Allergies: ciprofloxacin (Verified Allergy, Unknown, 11/14/18) sulfamethoxazole (Verified Allergy, Unknown, 03/25/19) trimethoprim (Verified Allergy, Unknown, 03/25/19) Scheduled Apixaban (Eliquis), 5 MG PO BID, (Reported) Aspirin (Aspirin Ec), 1 TAB PO DAILY, (Reported) Buspirone Hcl (Buspirone Hcl), 1 TAB PO BID, (Reported) Chlorthalidone (Chlorthalidone), 1 TAB PO DAILY, (Reported) Duloxetine Hcl (Cymbalta), 3 CAP PO DAILY, (Reported) Esomeprazole Magnesium (Nexium), 1 CAP PO DAILY, (Reported) Fluticasone Propionate (Allergy Relief), 2 SPR NA QD, (Reported) Isosorbide Mononitrate (Isosorbide Mononitrate Er), 1 TAB PO DAILY, (Reported) Loratadine (Loratadine), 1 TAB PO QD, (Reported) Losartan Potassium (Losartan Potassium), 1 TAB PO DAILY, (Reported) Montelukast Sodium (Montelukast Sodium), 1 TAB PO DAILY, (Reported) Pregabalin (Lyrica), 1 CAP PO BID, (Reported) Vitamin D3/Menaquinone 7 (D3 + K2 Dots 1,000 Units Tab), 1 TAB PO QD, (Reported) Scheduled PRN Tramadol Hcl (Tramadol Hcl), 1 TAB PO Q8HR PRN for PAIN 1 - 3, (Reported) Discontinued Medications Apixaban (Eliquis), 5 MG PO BID, (Reported) Discontinued Reason: No Longer Taking Eyelid Cleanser Combination #9 (Systane), 1 EACH TP TID, (Reported) Discontinued Reason: No Longer Taking Insulin Degludec (Tresiba), 10 UNIT SUBCUT DP, (Reported) Discontinued Reason: No Longer Taking Isosorbide Mononitrate (Isosorbide Mononitrate), 10 MG PO TID, (Reported) Discontinued Reason: No Longer Taking Levothyroxine Sodium (Levothyroxine Sodium), 150 MCG PO DAILY24, (Reported) Discontinued Reason: No Longer Taking Loratadine (Loratadine), 10 MG PO DP, (Reported) Discontinued Reason: No Longer Taking Losartan Potassium (Losartan Potassium), 100 MG PO DAILY24, (Reported) Discontinued Reason: No Longer Taking Pantoprazole Sodium (Pantoprazole Sodium), 40 MG PO DAILY24, (Reported) Discontinued Reason: Discontinue Prednisolone Acetate (Prednisolone Acetate), 2 DROP LEFT EYE QID, (Reported) Discontinued Reason: Discontinue Prednisolone Acetate (Prednisolone Acetate), 2 DROP RIGHT EYE QID, (Reported) Discontinued Reason: Discontinue Objective Vitals and I/O Vital Sign - Last 24 Hours 03/17/20 03/17/20 03/17/20 03/17/20 17:05 17:05 17:12 23:33 Temp 99.6 99.6 99.6 Pulse 86 81 86 Resp 20 20 20 B/P (MAP) 115/70 (85) Pulse Ox 89 89 O2 Delivery Room Air Nasal Cannula O2 Flow Rate 2.00 03/17/20 03/18/20 03/18/20 03/18/20 23:52 04:41 09:44 09:45 Temp 97.8 98.1 Pulse 72 64 Resp 16 18 B/P (MAP) 117/79 (92) 111/67 (82) 111/67 111/67 Pulse Ox 94 98 O2 Delivery Nasal Canula Nasal Canula O2 Flow Rate 2.00 2.00 03/18/20 03/18/20 03/18/20 10:04 12:21 13:30 Temp 97.7 97.4 Pulse 63 57 Resp 18 B/P (MAP) 125/85 (98) 107/64 (78) Pulse Ox 96 100 O2 Delivery Nasal Cannula O2 Flow Rate 2.00 Intake and Output 03/18/20 06:59 Output Total 300 ml Balance -300 ml General: Alert, Oriented X3, Cooperative, No acute distress HEENT: Atraumatic, PERRLA, EOMI, Mucous membr. moist/pink Lungs: Clear to auscultation, Normal air movement Heart: Regular rate, Normal S1, Normal S2 Abdomen: Normal bowel sounds, Soft, No tenderness Extremities: No clubbing, No cyanosis, No edema, Normal pulses, No tenderness/swelling Skin: No rashes, No breakdown Neuro: Normal speech Psych/Mental Status: Mental status NL, Mood NL All Results(Lab/Rad) Laboratory Tests Test 03/17/20 17:40 03/17/20 17:47 03/17/20 18:39 03/17/20 21:40 White Blood Count 7.4 10^3/uL Red Blood Count 4.91 10^6/uL Hemoglobin 14.2 g/dL Hematocrit 42.3 % Mean Corpuscular Volume 86.2 fL Mean Corpuscular Hemoglobin 28.9 pg Mean Corpuscular Hemoglobin Concent 33.6 g/dL Red Cell Distribution Width 14.0 % Platelet Count 203 10^3/uL Mean Platelet Volume 10.3 fL Neutrophils (%) (Auto) 69.8 % Lymphocytes (%) (Auto) 18.2 % Monocytes (%) (Auto) 10.7 % Neutrophils # (Auto) 5.1 10^3/uL Lymphocytes # (Auto) 1.34 10^3/uL1 Monocytes # (Auto) 0.8 10^3/uL Absolute Immature Granulocyte (auto 0.03 10^3 u/L Absolute Eosinophils (auto) 0.0 10^3/uL Immature Granulocytes % 0.40 % Eosinophils % 0.5 % Basophils % 0.4 % Basophils # 0.0 10^3/uL Prothrombin Time 12.0 SEC Prothrombin Time INR (Non-Therap) 1.2 Activated Partial Thromboplast Time 28.5 SEC D-Dimer 0.23 mg/L Sodium Level 135 mmol/L Potassium Level 2.6 mmol/L Chloride Level 96.0 mmol/L Carbon Dioxide Level 26.5 mmol/L Anion Gap 15.1 Blood Urea Nitrogen 16 mg/dL Creatinine 1.20 mg/dL Estimated GFR () 53.4 Est GFR (CKD-EPI)(Non-Afr [place]) 44.2 BUN/Creatinine Ratio 13.0 Glucose Level 182 mg/dL Lactic Acid Level 1.6 mmol/L Calcium Level 9.4 mg/dL Total Bilirubin 0.8 mg/dL Aspartate Amino Transf (AST/SGOT) 37 U/L Alanine Aminotransferase (ALT/SGPT) 26 U/L Alkaline Phosphatase 92 U/L Total Creatine Kinase 60 U/L Creatine Kinase MB < 0.5 ng/mL Troponin I < 0.02 ng/mL Pro-B-Type Natriuretic Peptide 103 pg/mL Total Protein 7.7 g/dL Albumin 3.4 g/dL Globulin 4.3 Albumin/Globulin Ratio 0.790 Blood Gas Sample Site RT RADIAL ARTERY Blood Gas pH 7.451 Blood Gas PCO2 39.8 mmHg Blood Gas PO2 54.6 mmHg Blood Gas HCO3 27.1 mmol/L Blood Gas Base Excess 3.0 mmol/L Leiv Test POSITIVE Arterial Blood Oxygen Saturation 88.1 % Deoxyhemoglobin 11.7 % Carboxyhemoglobin 1.1 % Methemoglobin 0.5 % Total Hemoglobin 14.9 % Total Oxygen Concentration 18.1 % Blood Gas Temperature 37 Oxygen Delivery Method (LAB) ROOM AIR FiO2 21 % Total Carbon Dioxide 28.3 mmol/L Influenza Type A Antigen NEGATIVE Influenza B Immunofluorescence NEGATIVE Group A Streptococcus Screen POSITIVE SARS-CoV-2 Antigen (Rapid) POSITIVE Test 03/18/20 04:45 03/18/20 04:46 03/18/20 08:22 03/18/20 12:00 Bedside Glucose 282 269 Magnesium Level 1.1 mg/dL 1.2 mg/dL Ferritin 111 ng/mL Lactate Dehydrogenase 131 U/L C-Reactive Protein 4.10 mg/dL Procalcitonin 0.07 ng/mL Sodium Level 135 mmol/L Potassium Level 3.5 mmol/L Chloride Level 101.0 mmol/L Carbon Dioxide Level 26.0 mmol/L Glucose Level 265 mg/dL Blood Urea Nitrogen 23 mg/dL Creatinine 1.20 mg/dL Calcium Level 8.4 mg/dL Anion Gap 11.5 Estimated GFR () 53.4 Est GFR (CKD-EPI)(Non-Afr [place]) 44.2 BUN/Creatinine Ratio 19.0 Test 03/18/20 12:59 Bedside Glucose 217 Current Medications Medications (Trade) Dose Ordered Sig/Keith Route PRN Reason Start Time Stop Time Status Last Admin Dose Admin Ceftriaxone Sodium 1000 mg/ Sodium Chloride 100 ml @ 100 mls/hr STAT STAT IV 03/17/20 17:20 03/18/20 02:48 DC 03/17/20 18:13 Sodium Chloride 100 ml @ ud STK-MED ONCE IV 03/17/20 18:06 03/17/20 18:08 DC Ceftriaxone Sodium (Rocephin) 1,000 mg STK-MED ONCE .ROUTE 03/17/20 18:06 03/17/20 18:09 DC Potassium Chloride/Sodium Chloride 1,000 ml @ 500 mls/hr Q2H STAT IV 03/17/20 21:56 03/17/20 23:55 DC 03/17/20 22:51 Potassium Chloride (Klor-Con 10) 40 meq STAT STAT PO 03/17/20 21:56 03/17/20 22:01 DC 03/17/20 22:51 Potassium Chloride (Klor-Con 10) 10 meq STK-MED ONCE PO 03/17/20 22:43 03/17/20 22:46 DC Potassium Chloride/Sodium Chloride 1,000 ml @ ud STK-MED ONCE IV 03/17/20 22:43 03/17/20 22:46 DC Aspirin (Aspirin Ec) 81 mg DAILY PO 03/18/20 09:00 04/17/20 08:59 03/18/20 09:45 Buspirone HCl (Buspar) 10 mg BID PO 03/18/20 09:00 04/17/20 08:59 03/18/20 09:45 Chlorthalidone (Chlorthalidone) 25 mg DAILY PO 03/18/20 09:00 04/17/20 08:59 03/18/20 09:45 Duloxetine HCl (Cymbalta) 90 mg DAILY PO 03/18/20 09:00 04/17/20 08:59 03/18/20 09:45 Pantoprazole Sodium (Protonix) 40 mg DAILY PO 03/18/20 09:00 04/17/20 08:59 03/18/20 09:45 Isosorbide Mononitrate (Imdur) 30 mg DAILY PO 03/18/20 09:00 04/17/20 08:59 03/18/20 09:45 Losartan Potassium (Cozaar) 50 mg DAILY PO 03/18/20 09:00 04/17/20 08:59 03/18/20 09:44 Montelukast Sodium (Singulair) 10 mg DAILY PO 03/18/20 09:00 04/17/20 08:59 03/18/20 09:44 Tramadol HCl (Ultram) 50 mg Q8HR PRN PO PAIN 1 - 3 03/18/20 01:00 04/17/20 00:59 Fluticasone Propionate (Flonase) 1 sprays DAILY NS 03/18/20 09:00 04/17/20 08:59 Loratadine (Claritin) 10 mg DAILY PO 03/18/20 09:00 04/17/20 08:59 03/18/20 09:59 Pregabalin (Lyrica) 200 mg BID PO 03/18/20 09:00 04/17/20 08:59 03/18/20 09:59 Cholecalciferol (Vitamin D) 1,000 unit DAILY PO 03/18/20 09:00 04/17/20 08:59 03/18/20 09:59 Potassium Chloride (Klor-Con 10) 40 meq OT ONCE PO 03/18/20 05:00 03/18/20 06:02 DC 03/18/20 04:17 Enoxaparin Sodium (Lovenox) 40 mg Q24HRS SQ 03/18/20 02:00 03/18/20 02:49 DC 03/18/20 02:34 Remdesivir (Eua) 100 mg/Sodium Chloride 270 ml @ 250 mls/hr Q24HRS IV 03/19/20 02:00 03/18/20 02:49 DC Remdesivir (Eua) 200 mg/Sodium Chloride 290 ml @ 250 mls/hr OT IV 03/18/20 02:00 03/18/20 02:49 DC Melatonin (Melatonin) 6 mg HS PO 03/18/20 21:00 04/17/20 20:59 Zinc Sulfate (Zinc Sulfate) 220 mg DAILY PO 03/18/20 09:00 04/17/20 08:59 03/18/20 09:45 Sodium Chloride 100 ml @ ud STK-MED ONCE IV 03/18/20 02:30 03/18/20 02:33 DC Enoxaparin Sodium (Lovenox) 40 mg STK-MED ONCE SQ 03/18/20 02:30 03/18/20 02:49 DC Magnesium Sulfate 50 ml @ 50 mls/hr OT ONCE IV 03/18/20 08:00 03/18/20 08:59 DC 03/18/20 10:00 Course Sepsis Screening Results: Posi: POSITIVE Sepsis Qualifier/Stage: SEPSIS RISK Duration or Total Time Spent w: 60 min Vitals & review Data Vital Sign - Last 24 Hours 03/17/20 03/17/20 03/17/20 03/17/20 17:05 17:05 17:12 23:33 Temp 99.6 99.6 99.6 Pulse 86 81 86 Resp 20 20 20 B/P (MAP) 115/70 (85) Pulse Ox 89 89 O2 Delivery Room Air Nasal Cannula O2 Flow Rate 2.00 03/17/20 03/18/20 03/18/20 03/18/20 23:52 04:41 09:44 09:45 Temp 97.8 98.1 Pulse 72 64 Resp 16 18 B/P (MAP) 117/79 (92) 111/67 (82) 111/67 111/67 Pulse Ox 94 98 O2 Delivery Nasal Canula Nasal Canula O2 Flow Rate 2.00 2.00 03/18/20 03/18/20 03/18/20 10:04 12:21 13:30 Temp 97.7 97.4 Pulse 63 57 Resp 18 B/P (MAP) 125/85 (98) 107/64 (78) Pulse Ox 96 100 O2 Delivery Nasal Cannula O2 Flow Rate 2.00 Intake and Output 03/18/20 06:59 Output Total 300 ml Balance -300 ml Laboratory Tests Test 03/17/20 17:40 03/17/20 17:47 03/17/20 18:39 03/17/20 21:40 White Blood Count 7.4 10^3/uL Red Blood Count 4.91 10^6/uL Hemoglobin 14.2 g/dL Hematocrit 42.3 % Mean Corpuscular Volume 86.2 fL Mean Corpuscular Hemoglobin 28.9 pg Mean Corpuscular Hemoglobin Concent 33.6 g/dL Red Cell Distribution Width 14.0 % Platelet Count 203 10^3/uL Mean Platelet Volume 10.3 fL Neutrophils (%) (Auto) 69.8 % Lymphocytes (%) (Auto) 18.2 % Monocytes (%) (Auto) 10.7 % Neutrophils # (Auto) 5.1 10^3/uL Lymphocytes # (Auto) 1.34 10^3/uL1 Monocytes # (Auto) 0.8 10^3/uL Absolute Immature Granulocyte (auto 0.03 10^3 u/L Absolute Eosinophils (auto) 0.0 10^3/uL Immature Granulocytes % 0.40 % Eosinophils % 0.5 % Basophils % 0.4 % Basophils # 0.0 10^3/uL Prothrombin Time 12.0 SEC Prothrombin Time INR (Non-Therap) 1.2 Activated Partial Thromboplast Time 28.5 SEC D-Dimer 0.23 mg/L Sodium Level 135 mmol/L Potassium Level 2.6 mmol/L Chloride Level 96.0 mmol/L Carbon Dioxide Level 26.5 mmol/L Anion Gap 15.1 Blood Urea Nitrogen 16 mg/dL Creatinine 1.20 mg/dL Estimated GFR () 53.4 Est GFR (CKD-EPI)(Non-Afr [place]an) 44.2 BUN/Creatinine Ratio 13.0 Glucose Level 182 mg/dL Lactic Acid Level 1.6 mmol/L Calcium Level 9.4 mg/dL Total Bilirubin 0.8 mg/dL Aspartate Amino Transf (AST/SGOT) 37 U/L Alanine Aminotransferase (ALT/SGPT) 26 U/L Alkaline Phosphatase 92 U/L Total Creatine Kinase 60 U/L Creatine Kinase MB < 0.5 ng/mL Troponin I < 0.02 ng/mL Pro-B-Type Natriuretic Peptide 103 pg/mL Total Protein 7.7 g/dL Albumin 3.4 g/dL Globulin 4.3 Albumin/Globulin Ratio 0.790 Blood Gas Sample Site RT RADIAL ARTERY Blood Gas pH 7.451 Blood Gas PCO2 39.8 mmHg Blood Gas PO2 54.6 mmHg Blood Gas HCO3 27.1 mmol/L Blood Gas Base Excess 3.0 mmol/L Levi Test POSITIVE Arterial Blood Oxygen Saturation 88.1 % Deoxyhemoglobin 11.7 % Carboxyhemoglobin 1.1 % Methemoglobin 0.5 % Total Hemoglobin 14.9 % Total Oxygen Concentration 18.1 % Blood Gas Temperature 37 Oxygen Delivery Method (LAB) ROOM AIR FiO2 21 % Total Carbon Dioxide 28.3 mmol/L Influenza Type A Antigen NEGATIVE Influenza B Immunofluorescence NEGATIVE Group A Streptococcus Screen POSITIVE SARS-CoV-2 Antigen (Rapid) POSITIVE Test 03/18/20 04:45 03/18/20 04:46 03/18/20 08:22 03/18/20 12:00 Bedside Glucose 282 269 Magnesium Level 1.1 mg/dL 1.2 mg/dL Ferritin 111 ng/mL Lactate Dehydrogenase 131 U/L C-Reactive Protein 4.10 mg/dL Procalcitonin 0.07 ng/mL Sodium Level 135 mmol/L Potassium Level 3.5 mmol/L Chloride Level 101.0 mmol/L Carbon Dioxide Level 26.0 mmol/L Glucose Level 265 mg/dL Blood Urea Nitrogen 23 mg/dL Creatinine 1.20 mg/dL Calcium Level 8.4 mg/dL Anion Gap 11.5 Estimated GFR () 53.4 Est GFR (CKD-EPI)(Non-Afr [place]) 44.2 BUN/Creatinine Ratio 19.0 Test 03/18/20 12:59 Bedside Glucose 217 Current Medications Medications (Trade) Dose Ordered Sig/Keith PRN Reason Start Time Stop Time Status Last Admin Aspirin (Aspirin Ec) 81 mg DAILY 03/18/20 09:00 04/17/20 08:59 03/18/20 09:45 Buspirone HCl (Buspar) 10 mg BID 03/18/20 09:00 04/17/20 08:59 03/18/20 09:45 Chlorthalidone (Chlorthalidone) 25 mg DAILY 03/18/20 09:00 04/17/20 08:59 03/18/20 09:45 Cholecalciferol (Vitamin D) 1,000 unit DAILY 03/18/20 09:00 04/17/20 08:59 03/18/20 09:59 Duloxetine HCl (Cymbalta) 90 mg DAILY 03/18/20 09:00 04/17/20 08:59 03/18/20 09:45 Fluticasone Propionate (Flonase) 1 sprays DAILY 03/18/20 09:00 04/17/20 08:59 Isosorbide Mononitrate (Imdur) 30 mg DAILY 03/18/20 09:00 04/17/20 08:59 03/18/20 09:45 Loratadine (Claritin) 10 mg DAILY 03/18/20 09:00 04/17/20 08:59 03/18/20 09:59 Losartan Potassium (Cozaar) 50 mg DAILY 03/18/20 09:00 04/17/20 08:59 03/18/20 09:44 Melatonin (Melatonin) 6 mg HS 03/18/20 21:00 04/17/20 20:59 Montelukast Sodium (Singulair) 10 mg DAILY 03/18/20 09:00 04/17/20 08:59 03/18/20 09:44 Pantoprazole Sodium (Protonix) 40 mg DAILY 03/18/20 09:00 04/17/20 08:59 03/18/20 09:45 Pregabalin (Lyrica) 200 mg BID 03/18/20 09:00 04/17/20 08:59 03/18/20 09:59 Tramadol HCl (Ultram) 50 mg Q8HR PRN PAIN 1 - 3 03/18/20 01:00 04/17/20 00:59 Zinc Sulfate (Zinc Sulfate) 220 mg DAILY 03/18/20 09:00 04/17/20 08:59 03/18/20 09:45 Sepsis Infection Criteria Pres: None LEVEL 1 SEPSIS INFECTION CRITE: Cough/Shortness of Breath LEVEL 2-SIRS (LIST ALL THAT AP: None/Not assessed Cardiovascular Evidence: Not Assessed or None Hematologic Evidence: None/Not assessed Hepatic Evidence: None/Not assessed Metabolic Evidence: None/Not assessed Neurological Evidence: None/Not assessed Respiratory Evidence: Need for O2 to keep>90% Renal Evidence: None/Not assessed O2 Sat by Pulse Oximetry: 100 Oxygen Flow Rate: 2.00 Assessment/Plan Assessment/Plan Assessment/Plan 74-year-old female presented to [facility] with hypokalemia repleting with IV and p.o. medications patient also Hypomagnesemia. Patient Medical history of A. fib on Eliquis 5 mg twice a day no rate control agent. Sinus rhythm on EKG no acute distress noted. We will continue to replete electrolytes and monitor will likely discharge status post completion patient you currently utilizing 2 L nasal cannula satting 100%. Previous Covid test 2 weeks ago was negative. No leukocytosis.Plan to discharge status post electrolyte repletion. Fatigue/Hypokalemia - Fatigue most likely secondary to hypokalemia with potassium level of 2.6 on arrival, Repletion increase potassium up to 3.5. This is most likely secondary to medication causing hypokalemia. Patient currently takes chlorthalidone and is supposed to be taking a potassium supplement but cannot remember if she takes a potassium supplement or not as of now. After potassium repletion patient actually/instantly felt better. Will order for magnesium level for the morning. Patient will have received 120 mEq of potassium chloride by the morning. After that please repeat labs. Hypomagnesemia -Continue to monitor and replete with IV magnesium will administer another 2 g and evaluate electrolyte levels. COVID 19 - no chest x ray findings. Patient had previous COVID-19 test 2 weeks ago that was negative. NO INDICATION FOR REMDESEVIR, DEXAMETHASONE, OR CONVALESCENT PLASMA. If patient develops hyper inflammatory response and requiring over 6 L of oxygen then will consider continuing remdesivir, dexamethasone and convalescent plasma. We will stop antibiotics at this time as patient received 1 dose of ceftriaxone from the emergency department. However, there is no indication for antibiotics so will not continue. No leukocytosis. Procalcitonin unremarkable. Will obtain ambulatory oxygenation trial prior to dischargeTo evaluate oxygen needs. Atrial Fibrillation Currently on Eliquis 5 mg twice daily. Patient is not on a rate controlling agent for atrial fibrillation however, patient is in normal sinus rhythm on EKG during admission. Cardiac monitoring. Hypertension - on chlorthalidone 25 mg qD, Isosorbide mononitrate 30 mg daily ER, losartan 50 mg once daily Fibromyalgia - currently on Duloxetine 90 mg once daily as well as Lyrica 200 mg BID GERD - continue omeprazole 40 mg qD Allergies - hold montelukast and fluticasone unless patient develops symptoms DVT SCD Incentive spirometry Plan pt seen and examined, chart and assessment and plan above reviewed and agree with management as per CIRO astorga. MANASA ASTORGA NP Mar 18, 2020 14:29 JORGE RIVERA MD Mar 18, 2020 15:56
[2020-03-18] MEDS ORDERED: KLOR-CON 10 PO SCH (14:45)
[2020-03-18] MEDS: NS 1000ML/KCL 20MEQ 1,000 ML IV SCH (16:13)
[2020-03-18 16:30] VITALS: BP 114/65
[2020-03-18 18:51] LABS: CALCIUM 8.9 mg/dL (8.4-10.5); CARBON DIOXIDE 27.5 mmol/L (20.0-32)
[2020-03-18 19:31] VITALS: BP 117/72
[2020-03-18] MEDS ORDERED: MELATONIN PO SCH (21:00)
[2020-03-18] MEDS ORDERED: LANTUS SQ SCH (23:00)
[2020-03-19 00:37] VITALS: BP 115/70
[2020-03-19] MEDS ORDERED: REMDESIVIR (EUA) 100 MG in NS 250ML 250 ML IV SCH (02:00)
[2020-03-19] MEDS: NS 1000ML/KCL 20MEQ 1,000 ML IV SCH ×2 (03:50→04:59)
[2020-03-19 04:57] VITALS: BP 113/65
[2020-03-19 06:14] LABS: BASOPHIL % 0.4 % (0.0-0.2); EOSINOPHIL % 0.4 % (0.0-5.0); LYMPHOCYTES # 1.41 10^3/uL1 (1.0-4.8); LYMPHOCYTES % 27.1 % (24.0-44.0); MEAN CORP HGB 29.8 pg (26-34); MONOCYTES # 0.6 10^3/uL (0.3-0.8); MONOCYTES % 11.2 % (5.0-12.0); NEUTROPHIL # 3.2 10^3/uL (1.8-7.7); NEUTROPHILS % 60.5 % (41.0-85.0); PLATELET COUNT 200 10^3/uL (150-400)
[2020-03-19 06:54] LABS: CALCIUM 8.6 mg/dL (8.4-10.5); CARBON DIOXIDE 26.3 mmol/L (20.0-32)
[2020-03-19 08:30] VITALS: BP 111/77
[2020-03-19] MEDS: ASPIRIN EC PO SCH (09:56)
[2020-03-19] MEDS: CYMBALTA PO SCH (09:58)
[2020-03-19] MEDS: BUSPAR PO SCH (09:59)
[2020-03-19] MEDS: SINGULAIR PO SCH (09:59)
[2020-03-19] MEDS: CHLORTHALIDONE PO SCH (09:59)
[2020-03-19] MEDS: VITAMIN D PO SCH (09:59)
[2020-03-19] MEDS: CLARITIN PO SCH (09:59)
[2020-03-19] MEDS: ZINC SULFATE PO SCH (09:59)
[2020-03-19] MEDS: ELIQUIS PO SCH (09:59)
[2020-03-19] MEDS: IMDUR PO SCH (10:00)
[2020-03-19] MEDS: COZAAR PO SCH (10:00)
[2020-03-19] MEDS: PROTONIX PO SCH (10:10)
--- NOTE | 2020-03-19 12:36 | NUR ---
ROOM AIR CHALLENGE PT PLACED ON ROOM AIR. SITTING SPO2 92% ON ROOM AIR. PT AMBULATED 100FT ON ROOM AIR. SPO2 DECREASED TO 88-90% ON ROOM AIR. PT LEFT ON ROOM AIR.
[2020-03-19 12:38] VITALS: BP 118/67
[2020-03-19] MEDS: LYRICA PO SCH (12:42)
[2020-03-19] MEDS ORDERED: ASCO500C PO (14:27)
[2020-03-19] MEDS ORDERED: POTA10TA6 PO (14:27)
[2020-03-19] MEDS ORDERED: ZINC220C7 PO (14:27)
--- NOTE | 2020-03-19 14:39 | PRM.DC ---
Subjective Subjective Date of Discharge: Mar 19, 2020 Time of Request to Discharge: 14:28 Subjective Patient to be discharged today no acute distress overnight, no leukocytosis, afebrile hemodynamically stable. Patient positive for Covid no antivirals or dexamethasone was given patient was on 2 L nasal cannula for ambulation oxygenation trial revealed desaturation with activity anywhere from 88 to 92% O2 patient to be discharged home without home oxygen. Patient History: Unknown 34 MOTHER 35 FATHER Constitutional: denies no symptoms reported, denies see HPI, denies chills, denies diaphoresis, denies fever, denies malaise, denies weakness, denies other EENTM: denies no symptoms reported, denies see HPI, denies eye pain, denies blurred vision, denies tearing, denies double vision, denies ear pain, denies ear discharge, denies nose pain, denies nose congestion, denies throat pain, denies throat swelling, denies mouth pain, denies mouth swelling, denies other Respiratory: denies no symptoms reported, denies see HPI, denies cough, denies orthopnea, denies shortness of breath, denies SOB with exertion, denies SOB at rest, denies stridor, denies wheezing, denies other Cardiovascular: denies no symptoms reported, denies see HPI, denies chest pain, denies edema, denies irregular heart rate, denies lightheadedness, denies palpitations, denies syncope, denies other ABD/GI (ROS): denies no symptoms reported, denies see HPI, denies abdomen distended, denies abdominal pain, denies blood streaked bowels, denies constipated, denies diarrhea, denies difficulty swallowing, denies nausea, denies poor appetite, denies poor fluid intake, denies rectal bleeding, denies vomiting, denies other Genitourinary: denies no symptoms reported, denies see HPI, denies burning, denies dysuria, denies discharge, denies frequency, denies flank pain, denies hematuria, denies incontinence, denies pain, denies urgency, denies other Musculoskeletal: denies no symptoms reported, denies see HPI, denies back pain, denies gout, denies joint pain, denies joint swelling, denies muscle pain, denies muscle stiffness, denies neck pain, denies other Skin: denies no symptoms reported, denies see HPI, denies change in color, denies change in hair/nails, denies dryness, denies lesions, denies lumps, denies rash, denies other Psychiatric/Neurological: denies no symptoms reported, denies see HPI, denies anxiety, denies depressed, denies emotional problems, denies headache, denies numbness, denies paresthesia, denies pre-existing deficit, denies seizure, denies tingling, denies tremors, denies weakness, denies other Endocrine: denies no symptoms reported, denies see HPI, denies excessive sweating, denies flushing, denies intolerance to cold, denies intolerance to heat, denies increased hunger, denies increased thrist, denies increased urine, denies unexplained weight gain, denies unexplaned weight loss, denies other Hematologic/Lymphatic: denies no symptoms reported, denies see HPI, denies anemia, denies blood clots, denies easy bleeding, denies easy bruising, denies swollen glands, denies other All Other Systems: Reviewed and Negative Exam Vital Signs Vital Signs Date Time Temp Pulse Resp B/P (MAP) Pulse Ox O2 Delivery O2 Flow Rate FiO2 03/19/20 14:04 Room Air 0.00 03/19/20 12:38 97.8 62 18 118/67 (84) 92 General Appearance: Alert, Oriented X3, Cooperative, No acute distress HEENT: Atraumatic, PERRLA, EOMI, Mucous membr. moist/pink Respiratory: Clear to auscultation, Normal air movement Cardiovascular: Regular rate, Normal S1, Normal S2, No murmurs Abdominal: Normal bowel sounds, Soft, No tenderness Extremities: No clubbing, No cyanosis, No edema, Normal pulses Skin: No rash, No breakdown, No lesions Neuro: Normal gait, Normal speech, Strength at 5/5 X4 ext, Normal tone, Sensation intact Psych/Mental Status: Mental status NL, Mood NL VTE VTE Risk Total Score: 2 VTE Risk Score VTE Risk: Score 0-1 = Low Risk (Aggressive mobilization; early ambulation; no VTE prophylaxis required) Score 2: Moderate Risk (Intermittent/Pneumatic Compression Device OR Lovenox/Heparin/Coumadin) Score 3-4: High Risk (Intermittent/Pneumatic Compression Device AND Lovenox/Heparin/Coumadin) Score > or =5: Highest Risk (Intermittent/Pneumatic Compression Device AND Lovenox/Heparin/Coumadin) Antico:Hep/LMWH/Coum/Xarelto: Yes Objective Vitals and I/O Vital Sign - Last 24 Hours 03/18/20 03/18/20 03/19/20 03/19/20 16:30 19:31 00:37 04:57 Temp 97.8 97.6 97.7 98.0 Pulse 59 60 62 59 Resp 18 18 18 21 B/P (MAP) 114/65 (81) 117/72 (87) 115/70 (85) 113/65 (81) Pulse Ox 100 100 100 94 O2 Delivery Nasal Canula Nasal Canula Nasal Canula Nasal Canula O2 Flow Rate 2.00 2.00 2.00 03/19/20 03/19/20 03/19/20 03/19/20 08:30 10:00 10:00 12:38 Temp 97.0 97.8 Pulse 59 62 Resp 18 18 B/P (MAP) 111/77 (88) 128/72 128/72 118/67 (84) Pulse Ox 92 92 O2 Delivery Room Air Room Air 03/19/20 14:04 O2 Delivery Room Air O2 Flow Rate 0.00 Intake and Output 03/19/20 07:00 Intake Total 50 ml Output Total 2650 ml Balance -2600 ml General: Alert, Oriented X3, Cooperative, No acute distress HEENT: Atraumatic, PERRLA, EOMI, Mucous membr. moist/pink Lungs: Clear to auscultation, Normal air movement Heart: Regular rate, Normal S1, Normal S2 Abdomen: Normal bowel sounds, Soft, No tenderness Extremities: No clubbing, No cyanosis, No edema, Normal pulses, No tenderness/swelling Skin: No rashes, No breakdown Neuro: Normal speech Psych/Mental Status: Mental status NL, Mood NL All Results(Lab/Rad) Laboratory Tests Test 03/17/20 17:40 03/17/20 17:47 03/17/20 18:39 03/17/20 21:40 White Blood Count 7.4 10^3/uL Red Blood Count 4.91 10^6/uL Hemoglobin 14.2 g/dL Hematocrit 42.3 % Mean Corpuscular Volume 86.2 fL Mean Corpuscular Hemoglobin 28.9 pg Mean Corpuscular Hemoglobin Concent 33.6 g/dL Red Cell Distribution Width 14.0 % Platelet Count 203 10^3/uL Mean Platelet Volume 10.3 fL Neutrophils (%) (Auto) 69.8 % Lymphocytes (%) (Auto) 18.2 % Monocytes (%) (Auto) 10.7 % Neutrophils # (Auto) 5.1 10^3/uL Lymphocytes # (Auto) 1.34 10^3/uL1 Monocytes # (Auto) 0.8 10^3/uL Absolute Immature Granulocyte (auto 0.03 10^3 u/L Absolute Eosinophils (auto) 0.0 10^3/uL Immature Granulocytes % 0.40 % Eosinophils % 0.5 % Basophils % 0.4 % Basophils # 0.0 10^3/uL Prothrombin Time 12.0 SEC Prothrombin Time INR (Non-Therap) 1.2 Activated Partial Thromboplast Time 28.5 SEC D-Dimer 0.23 mg/L Sodium Level 135 mmol/L Potassium Level 2.6 mmol/L Chloride Level 96.0 mmol/L Carbon Dioxide Level 26.5 mmol/L Anion Gap 15.1 Blood Urea Nitrogen 16 mg/dL Creatinine 1.20 mg/dL Estimated GFR () 53.4 Est GFR (CKD-EPI)(Non-Afr Citizen Of [place]) 44.2 BUN/Creatinine Ratio 13.0 Glucose Level 182 mg/dL Lactic Acid Level 1.6 mmol/L Calcium Level 9.4 mg/dL Total Bilirubin 0.8 mg/dL Aspartate Amino Transf (AST/SGOT) 37 U/L Alanine Aminotransferase (ALT/SGPT) 26 U/L Alkaline Phosphatase 92 U/L Total Creatine Kinase 60 U/L Creatine Kinase MB < 0.5 ng/mL Troponin I < 0.02 ng/mL Pro-B-Type Natriuretic Peptide 103 pg/mL Total Protein 7.7 g/dL Albumin 3.4 g/dL Globulin 4.3 Albumin/Globulin Ratio 0.790 Blood Gas Sample Site RT RADIAL ARTERY Blood Gas pH 7.451 Blood Gas PCO2 39.8 mmHg Blood Gas PO2 54.6 mmHg Blood Gas HCO3 27.1 mmol/L Blood Gas Base Excess 3.0 mmol/L Levi Test POSITIVE Arterial Blood Oxygen Saturation 88.1 % Deoxyhemoglobin 11.7 % Carboxyhemoglobin 1.1 % Methemoglobin 0.5 % Total Hemoglobin 14.9 % Total Oxygen Concentration 18.1 % Blood Gas Temperature 37 Oxygen Delivery Method (LAB) ROOM AIR FiO2 21 % Total Carbon Dioxide 28.3 mmol/L Influenza Type A Antigen NEGATIVE Influenza B Immunofluorescence NEGATIVE Group A Streptococcus Screen POSITIVE SARS-CoV-2 Antigen (Rapid) POSITIVE Test 03/18/20 04:45 03/18/20 04:46 03/18/20 08:22 03/18/20 12:00 Bedside Glucose 282 269 Magnesium Level 1.1 mg/dL 1.2 mg/dL Ferritin 111 ng/mL Lactate Dehydrogenase 131 U/L C-Reactive Protein 4.10 mg/dL Procalcitonin 0.07 ng/mL Sodium Level 135 mmol/L Potassium Level 3.5 mmol/L Chloride Level 101.0 mmol/L Carbon Dioxide Level 26.0 mmol/L Glucose Level 265 mg/dL Blood Urea Nitrogen 23 mg/dL Creatinine 1.20 mg/dL Calcium Level 8.4 mg/dL Anion Gap 11.5 Estimated GFR () 53.4 Est GFR (CKD-EPI)(Non-Afr Citizen Of [place]) 44.2 BUN/Creatinine Ratio 19.0 Test 03/18/20 12:59 Bedside Glucose 217 Current Medications Medications (Trade) Dose Ordered Sig/Keith Route PRN Reason Start Time Stop Time Status Last Admin Dose Admin Ceftriaxone Sodium 1000 mg/ Sodium Chloride 100 ml @ 100 mls/hr STAT STAT IV 03/17/20 17:20 03/18/20 02:48 DC 03/17/20 18:13 Sodium Chloride 100 ml @ ud STK-MED ONCE IV 03/17/20 18:06 03/17/20 18:08 DC Ceftriaxone Sodium (Rocephin) 1,000 mg STK-MED ONCE .ROUTE 03/17/20 18:06 03/17/20 18:09 DC Potassium Chloride/Sodium Chloride 1,000 ml @ 500 mls/hr Q2H STAT IV 03/17/20 21:56 03/17/20 23:55 DC 03/17/20 22:51 Potassium Chloride (Klor-Con 10) 40 meq STAT STAT PO 03/17/20 21:56 03/17/20 22:01 DC 03/17/20 22:51 Potassium Chloride (Klor-Con 10) 10 meq STK-MED ONCE PO 03/17/20 22:43 03/17/20 22:46 DC Potassium Chloride/Sodium Chloride 1,000 ml @ ud STK-MED ONCE IV 03/17/20 22:43 03/17/20 22:46 DC Aspirin (Aspirin Ec) 81 mg DAILY PO 03/18/20 09:00 04/17/20 08:59 03/18/20 09:45 Buspirone HCl (Buspar) 10 mg BID PO 03/18/20 09:00 04/17/20 08:59 03/18/20 09:45 Chlorthalidone (Chlorthalidone) 25 mg DAILY PO 03/18/20 09:00 04/17/20 08:59 03/18/20 09:45 Duloxetine HCl (Cymbalta) 90 mg DAILY PO 03/18/20 09:00 04/17/20 08:59 03/18/20 09:45 Pantoprazole Sodium (Protonix) 40 mg DAILY PO 03/18/20 09:00 04/17/20 08:59 03/18/20 09:45 Isosorbide Mononitrate (Imdur) 30 mg DAILY PO 03/18/20 09:00 04/17/20 08:59 03/18/20 09:45 Losartan Potassium (Cozaar) 50 mg DAILY PO 03/18/20 09:00 04/17/20 08:59 03/18/20 09:44 Montelukast Sodium (Singulair) 10 mg DAILY PO 03/18/20 09:00 04/17/20 08:59 03/18/20 09:44 Tramadol HCl (Ultram) 50 mg Q8HR PRN PO PAIN 1 - 3 03/18/20 01:00 04/17/20 00:59 Fluticasone Propionate (Flonase) 1 sprays DAILY NS 03/18/20 09:00 04/17/20 08:59 Loratadine (Claritin) 10 mg DAILY PO 03/18/20 09:00 04/17/20 08:59 03/18/20 09:59 Pregabalin (Lyrica) 200 mg BID PO 03/18/20 09:00 04/17/20 08:59 03/18/20 09:59 Cholecalciferol (Vitamin D) 1,000 unit DAILY PO 03/18/20 09:00 04/17/20 08:59 03/18/20 09:59 Potassium Chloride (Klor-Con 10) 40 meq OT ONCE PO 03/18/20 05:00 03/18/20 06:02 DC 03/18/20 04:17 Enoxaparin Sodium (Lovenox) 40 mg Q24HRS SQ 03/18/20 02:00 03/18/20 02:49 DC 03/18/20 02:34 Remdesivir (Eua) 100 mg/Sodium Chloride 270 ml @ 250 mls/hr Q24HRS IV 03/19/20 02:00 03/18/20 02:49 DC Remdesivir (Eua) 200 mg/Sodium Chloride 290 ml @ 250 mls/hr OT IV 03/18/20 02:00 03/18/20 02:49 DC Melatonin (Melatonin) 6 mg HS PO 03/18/20 21:00 04/17/20 20:59 Zinc Sulfate (Zinc Sulfate) 220 mg DAILY PO 03/18/20 09:00 04/17/20 08:59 03/18/20 09:45 Sodium Chloride 100 ml @ ud STK-MED ONCE IV 03/18/20 02:30 03/18/20 02:33 DC Enoxaparin Sodium (Lovenox) 40 mg STK-MED ONCE SQ 03/18/20 02:30 03/18/20 02:49 DC Magnesium Sulfate 50 ml @ 50 mls/hr OT ONCE IV 03/18/20 08:00 03/18/20 08:59 DC 03/18/20 10:00 Medication Reconciliation Scheduled Apixaban (Eliquis), 5 MG PO BID, (Reported) Ascorbic Acid (Vitamin C), 1 CAP PO QD Aspirin (Aspirin Ec), 1 TAB PO DAILY, (Reported) Buspirone Hcl (Buspirone Hcl), 1 TAB PO BID, (Reported) Chlorthalidone (Chlorthalidone), 1 TAB PO DAILY, (Reported) Duloxetine Hcl (Cymbalta), 3 CAP PO DAILY, (Reported) Esomeprazole Magnesium (Nexium), 1 CAP PO DAILY, (Reported) Fluticasone Propionate (Allergy Relief), 2 SPR NA QD, (Reported) Isosorbide Mononitrate (Isosorbide Mononitrate Er), 1 TAB PO DAILY, (Reported) Loratadine (Loratadine), 1 TAB PO QD, (Reported) Losartan Potassium (Losartan Potassium), 1 TAB PO DAILY, (Reported) Montelukast Sodium (Montelukast Sodium), 1 TAB PO DAILY, (Reported) Potassium Chloride (Klor-Con 10), 10 MEQ PO DAILY24 Pregabalin (Lyrica), 1 CAP PO BID, (Reported) Vitamin D3/Menaquinone 7 (D3 + K2 Dots 1,000 Units Tab), 1 TAB PO QD, (Reported) Zinc Sulfate (Zinc Sulfate), 220 MG PO DAILY Scheduled PRN Tramadol Hcl (Tramadol Hcl), 1 TAB PO Q8HR PRN for PAIN 1 - 3, (Reported) Discontinued Medications Apixaban (Eliquis), 5 MG PO BID, (Reported) Discontinued Reason: No Longer Taking Eyelid Cleanser Combination #9 (Systane), 1 EACH TP TID, (Reported) Discontinued Reason: No Longer Taking Insulin Degludec (Tresiba), 10 UNIT SUBCUT DP, (Reported) Discontinued Reason: No Longer Taking Isosorbide Mononitrate (Isosorbide Mononitrate), 10 MG PO TID, (Reported) Discontinued Reason: No Longer Taking Levothyroxine Sodium (Levothyroxine Sodium), 150 MCG PO DAILY24, (Reported) Discontinued Reason: No Longer Taking Loratadine (Loratadine), 10 MG PO DP, (Reported) Discontinued Reason: No Longer Taking Losartan Potassium (Losartan Potassium), 100 MG PO DAILY24, (Reported) Discontinued Reason: No Longer Taking Pantoprazole Sodium (Pantoprazole Sodium), 40 MG PO DAILY24, (Reported) Discontinued Reason: Discontinue Prednisolone Acetate (Prednisolone Acetate), 2 DROP LEFT EYE QID, (Reported) Discontinued Reason: Discontinue Prednisolone Acetate (Prednisolone Acetate), 2 DROP RIGHT EYE QID, (Reported) Discontinued Reason: Discontinue Plan Assessment 74-year-old female presented to ED with complaints of Feeling unwell for the past 3 days patient was Covid positive but asymptomatic utilized 2 L nasal cannula and did desat down into 88 with ambulatory oxygenation trial. No an tivirals were administered will continue zinc and vitamin C patient was also hypokalemic and hypomagnesemic repleted and discharged with small dose of potassium p.o. to follow-up with PCP within 1 week. Plan My Orders - MANASA LANTIGUA NP Procedure Category Date Status Time Potassium LAB 03/18/20 Complete 18:00 Magnesium LAB 03/18/20 Complete 18:00 Miscellaneous NURORDERS 03/18/20 Transmitted 14:32 Cbc With Auto Diff LAB 03/19/20 Complete 05:00 Comprehensive LAB 03/19/20 Complete Metabolic Panel 05:00 Magnesium LAB 03/19/20 Complete 05:00 Comprehensive LAB 03/18/20 Complete Metabolic Panel 17:46 Discharge DISCHARGE 03/19/20 Transmitted 14:21 Fatigue/Hypokalemia - Continue p.o. potassium Follow-up with PCP -Ambulatory oxygenation trial revealed 88-92 on room air no order for home O2 Hypomagnesemia -Follow-up with PCP COVID 19 - no chest x ray findings. Patient had previous COVID-19 test 2 weeks ago that was negative. NO INDICATION FOR REMDESEVIR, DEXAMETHASONE, OR CONVALESCENT PLASMA. Continue zinc and vitamin C follow-up with PCP Atrial Fibrillation Currently on Eliquis 5 mg twice daily Hypertension - on chlorthalidone 25 mg qD, Isosorbide mononitrate 30 mg daily ER, losartan 50 mg once daily Fibromyalgia - currently on Duloxetine 90 mg once daily as well as Lyrica 200 mg BID GERD - continue omeprazole 40 mg qD MANASA LANTIGUA NP Mar 19, 2020 14:39
--- NOTE | 2020-03-19 17:24 | NUR ---
Pt A+Ox4 cooperative with all care. VSS on RA, LSD occasional moist cough. Pt reports mild SOB when ambulating, relieved immediately with rest. Pt discharged home at 1700 on RA.
[2020-03-19] MEDS ORDERED: LANTUS SQ SCH (21:00)
== END 2020-03-19 16:58 | disposition home or self-care (01) ==
LOC: EDBD 17:04 → ER 17:04 → INTOOBSV 21:56 → MS 21:56 → OBSVTOIN 21:56 → UNDOADMOB 21:56 → UNDODISOB 03-19 16:58
PROVIDERS: ADMIT Family Medicine; ATTEND Family Medicine
DX: U07.1 COVID-19 (principal); E87.6 Hypokalemia; I48.91 Unspecified atrial fibrillation; I11.0 Hypertensive heart disease with heart failure; I50.9 Heart failure, unspecified; M79.7 Fibromyalgia; K21.9 Gastro-esophageal reflux disease without esophagitis; E89.0 Postprocedural hypothyroidism; E11.9 Type 2 diabetes mellitus without complications; J02.0 Streptococcal pharyngitis; E83.42 Hypomagnesemia; F32.9 Major depressive disorder, single episode, unspecified; G89.29 Other chronic pain; Z98.84 Bariatric surgery status; Z90.710 Acquired absence of both cervix and uterus; Z79.82 Long term (current) use of aspirin; Z79.01 Long term (current) use of anticoagulants; Z79.899 Other long term (current) drug therapy
CPT/HCPCS: 36415 ×3; 36600; 70450; 71045; 80053 ×3; 82550; 82553; 82728; 82803; 82948 ×2; 83605; 83615; 83735 ×2; 83880; 84132; 84145; 84484; 85025 ×2; 85379; 85610; 85730; 86140; 87040; 87426; 87635; 87804; 87880; 93005; 96365; 96366 ×3; 96367; 96368; 96372; 99285; G0378 ×4; J0696; J1100; J1650; J3475; J3490 ×2; J7050 ×2; 80048; C9399; J8499

== ENCOUNTER → 2020-04-27 | Outpatient (CLI) | payer MEDICARE, MEDICAID ==
[~2020-04-27] MED LIST changes: +ASCO500C PO; +ASPI-929 PO; +BUSP10TA PO; +CHLO25TA PO; +DULO30CA2 PO; +ESOM40CA PO; +FLUT15.812; +ISOS30TA4 PO; +LORA-60 PO; -LORA10TA62 PO; +LOSA50TA14 PO; +MONT10TA95 PO; +POTA10TA6 PO; +PREG200C PO; +TRAM50TA PO; +VITA1TAB31 PO; +ZINC220C7 PO
== END | disposition home or self-care (01) ==
LOC: NPLAB 13:25
PROVIDERS: ATTEND Nurse Practitioner Family
DX: U07.1 COVID-19 (principal); I10 Essential (primary) hypertension
CPT/HCPCS: 36415; 84132

== ENCOUNTER → 2020-05-28 | Outpatient (CLI) | payer MEDICARE, MEDICAID | END | disposition home or self-care (01) | LOC: NPLAB 11:41 | PROVIDERS: ATTEND Nurse Practitioner Family | DX: E87.5 Hyperkalemia (principal) | CPT/HCPCS: 84132 ==

== ENCOUNTER → 2020-06-16 | Outpatient (CLI) | payer MEDICARE, MEDICAID ==
[~2020-06-16] MED LIST changes: -ISOS30TA4 PO; +ISOS30TA73 PO; +MONT10TA20 PO; -MONT10TA95 PO
== END | disposition home or self-care (01) ==
LOC: NPLAB 10:38
PROVIDERS: ATTEND Nurse Practitioner Family
DX: E11.9 Type 2 diabetes mellitus without complications (principal); I10 Essential (primary) hypertension
CPT/HCPCS: 84132

== ENCOUNTER 2020-07-19 11:48 | Emergency (ER) | payer MEDICARE, MEDICAID ==
[~2020-07-19] VITALS: Ht 149.9 cm; Wt 90.7 kg
--- NOTE | 2020-07-19 11:52 | NUR ---
ARRIVAL PT ARRIVED TO ED WITH C/O SORETHROAT X 3 DAYS. PT REPORTS SHE WAS SEEN BY HER PCP 3 DAYS AGO AND STARTED ON PENICILLIN. BEDSIDE MONITORS APPLIED. VITAL SIGNS STABLE. BED IN LOW LOCKED POSITION.
[2020-07-19 11:59] VITALS: BP 153/91
[2020-07-19] MEDS ORDERED: DECADRON IM STA (12:07)
[2020-07-19 12:08] VITALS: BP 153/91
--- NOTE | 2020-07-19 12:08 | ER.PDOC ---
General Chief Complaint: Sore Throat Stated Complaint: SORE THROAT Time seen by MD: 12:06 Source: patient Exam Limitations: no limitations History of Present Illness Initial Comments Sore throat for 3 to 4 days. No fever or chills. No cough or congestion. Patient was started on antibiotics by her PCP 4 days ago. She is here today because it still hurts. Timing/Duration: gradual Associated Symptoms: mod sore throat Severity: moderate Prior symptoms/Treatment: Similar symptoms previous, Recenly Seen Allergies: Coded Allergies: ciprofloxacin (Verified Allergy, Unknown, 11/14/18) sulfamethoxazole (Verified Allergy, Unknown, 03/25/19) trimethoprim (Verified Allergy, Unknown, 03/25/19) Home Meds Active Scripts Ascorbic Acid (VITAMIN C) 500 Mg Capsule.er, 1 CAP PO QD for 30 Days, #30 CAP 0 Refills Prov:MANASA LANTIGUA NP 03/19/20 Potassium Chloride (KLOR-CON 10) 10 Meq Tablet.er, 10 MEQ PO DAILY24 for 3 Days, #3 TABLET 0 Refills Prov:MANASA LANTIGUA NP 03/19/20 Zinc Sulfate (ZINC SULFATE) 220 Mg Capsule, 220 MG PO DAILY for 30 Days, CAPSULE Prov:MANASA LANTIGUA NP 03/19/20 Reported Medications Fluticasone Propionate (Allergy Relief) 50 Mcg/Actuation [place].susp, 2 SPR NA QD for 30 Days, MILLILITER 0 Refills 03/17/20 Vitamin D3/Menaquinone 7 (D3 + K2 DOTS 1,000 UNITS TAB) 1 Each Tab.rapdis, 1 TAB PO QD for 30 Days, #30 TAB 0 Refills 03/17/20 Montelukast Sodium (MONTELUKAST SODIUM) 10 Mg Tablet, 1 TAB PO DAILY, #30 TAB 5 Refills 03/17/20 Losartan Potassium (LOSARTAN POTASSIUM) 50 Mg Tablet, 1 TAB PO DAILY, #30 TAB 5 Refills 03/17/20 Esomeprazole Magnesium (NEXIUM) 40 Mg Capsule.dr, 1 CAP PO DAILY, #30 CAP 5 Refills 03/17/20 Chlorthalidone (CHLORTHALIDONE) 25 Mg Tablet, 1 TAB PO DAILY, #30 TAB 5 Refills 03/17/20 Aspirin (ASPIRIN EC) 81 Mg Tablet.dr, 1 TAB PO DAILY, #30 TAB 3 Refills 03/17/20 Tramadol Hcl (TRAMADOL HCL) 50 Mg Tablet, 1 TAB PO Q8HR PRN for PAIN 1 - 3, #90 TAB 03/17/20 Buspirone Hcl (BUSPIRONE HCL) 10 Mg Tablet, 1 TAB PO BID, #60 TAB 1 Refill 03/17/20 Loratadine (LORATADINE) 10 Mg Tab.rapdis, 1 TAB PO QD for allergy symptoms for 30 Days, #30 TAB 0 Refills 03/17/20 Apixaban (Eliquis) 5 Mg Tablet, 5 MG PO BID, TABLET 03/17/20 Isosorbide Mononitrate (ISOSORBIDE MONONITRATE ER) 30 Mg Tab.er.24h, 1 TAB PO DAILY, #30 TAB 5 Refills 03/17/20 Pregabalin (LYRICA) 200 Mg Capsule, 1 CAP PO BID, #60 CAP 03/17/20 Duloxetine Hcl (CYMBALTA) 30 Mg Capsule.dr, 3 CAP PO DAILY, #30 CAP 5 Refills 03/17/20 Past Medical History Medical History: congestive heart failure, diabetes, hypertension, thyroid disease, other Surgical History: appendectomy, back, cholecystectomy, hysterectomy, other Family History Significant Family History: no pertinent family hx Social History Smoking: non-smoker Alcohol Use: none Drug Use: none Constitutional: no symptoms reported Mouth: no symptoms reported Throat: see HPI Respiratory: no symptoms reported Cardiovascular: no symptoms reported Gastrointestinal: no symptoms reported Musculoskeletal: no symptoms reported All Other Systems: Reviewed and Negative Physical Exam General Appearance: alert, no distress Head/Neck: head nml inspection, neck nml inspection, trachea midline, no lymphadenopathy, thyroid nml Eyes: eyes nml inspection, PERRL, no nystagmus Mouth: lips, gums nml, no drooling, no thrush, membranes nml Throat: pharyngeal erythema Respiratory: no resp. distress, lungs clear CVS: reg. rate & rhythm, heart sounds nml Abdomen: non-tender, no organomegaly Extremities: non-tender, ROM nml Skin Exam: Normal Color, Warm/Dry NEURO/PSYCH: oriented X3, mood/effect nml Results/Orders Results/Orders Orders - LANA PETE MD Strep Screen (07/19/20 12:05) Covid19 Antigen Belkys Joyce (07/19/20 12:05) Dexamethasone Sodium Phosphate (Decadron (07/19/20 12:07) Penicillin G Benzathine (Bicillin L-A) (07/19/20 13:03) Vital Signs Date Time Temp Pulse Resp B/P (MAP) Pulse Ox O2 Delivery O2 Flow Rate FiO2 07/19/20 12:08 98.4 86 18 153/91 (111) 92 Room Air 07/19/20 11:59 98.4 86 18 153/91 (111) 92 Room Air 07/19/20 11:59 98.4 86 18 92 07/19/20 11:59 98.4 86 18 Laboratory Tests Test 07/19/20 12:21 SARS-CoV-2 Antigen (Rapid) NEGATIVE (NEGATIVE) Group A Streptococcus Screen POSITIVE (NEGATIVE) ER DEPART Departure Time of Disposition: 13:04 Disposition: 01 HOME, SELF-CARE Impression: Primary Impression: Strep pharyngitis Condition: Stable Referrals: SHOSHANA GALDAMEZ [facility] [employer] (PCP) PRIMARY CARE PROVIDER Additional Instructions: Prednisone Stop current antibiotic at home Chloraseptic spray [id number] as needed for throat pain Follow-up with your PCP in 1 week Return to ED if worsening symptoms or concerns Duration or Time Spent with Pa: 20 min LANA PETE MD Jul 19, 2020 12:08
[2020-07-19] MEDS ORDERED: DECADRON ONE (12:11)
[2020-07-19] MEDS ORDERED: BICILLIN L-A IM ONE (13:03)
[2020-07-19] MEDS ORDERED: BICILLIN L-A IM STA (13:04)
[2020-07-19 13:10] VITALS: BP 135/84
== END 2020-07-19 13:22 | disposition home or self-care (01) ==
LOC: ER 11:48
DX: J02.0 Streptococcal pharyngitis (principal); I11.0 Hypertensive heart disease with heart failure; I50.9 Heart failure, unspecified; E11.9 Type 2 diabetes mellitus without complications; Z20.822 Contact with and (suspected) exposure to COVID-19; Z79.01 Long term (current) use of anticoagulants; Z79.82 Long term (current) use of aspirin; Z79.899 Other long term (current) drug therapy; Z88.1 Allergy status to other antibiotic agents; Z88.2 Allergy status to sulfonamides; Z90.49 Acquired absence of other specified parts of digestive tract; Z90.710 Acquired absence of both cervix and uterus
CPT/HCPCS: 87426; 87880; 96372; 99283; J0561; J1100

== ENCOUNTER → 2020-08-02 | Outpatient (CLI) | payer MEDICARE, MEDICAID ==
[2020-08-02 11:38] LABS: BILIRUBIN,URINE NEGATIVE (NEGATIVE); UA COLOR YELLOW
== END | disposition home or self-care (01) ==
LOC: NPLAB 11:05
PROVIDERS: ATTEND Nurse Practitioner Family
DX: N39.0 Urinary tract infection, site not specified (principal)
CPT/HCPCS: 81003; 87077; 87086; 87186

== ENCOUNTER 2020-09-26 14:35 | Observation (INO) | payer MEDICARE, MEDICAID ==
[~2020-09-26] VITALS: Ht 149.9 cm; Wt 95.7 kg
[2020-09-26 14:35] VITALS: BP 135/80
--- NOTE | 2020-09-26 14:44 | PCM.EKG ---
[facility] Test Date: 2020-09-26 Test Time: 14:36:45 Pat Name: ERICH LAI Department: Room: 338 Gender: F [employer]er: SHEBA : 1945 Requested By: LANA PETE Order Number: [id number] Reading MD: Lana PETE Measurements Intervals [place] Rate: 63 P: 26 SD: 216 QRS: -60 QRSD: 104 T: 78 QT: 481 QTc: 493 Interpretive Statements Sinus rhythm Borderline prolonged SD interval Left anterior fascicular block Abnormal R-wave progression, late transition Borderline T abnormalities, anterior leads Borderline prolonged QT interval Compared to ECG 03/17/2020 17:44:13 T-wave abnormality now present Electronically Signed On 09-29-2020 7:20:37 CDT by Lana PETE Please click the below link to view image of tracing.
[2020-09-26 14:45] LABS: BASOPHIL % 0.4 % (0.0-0.2); EOSINOPHIL # 0.3 10^3/uL (0.0-0.2); EOSINOPHIL % 4.3 % (0.0-5.0); LYMPHOCYTES # 2.18 10^3/uL1 (1.0-4.8); LYMPHOCYTES % 29.1 % (24.0-44.0); MEAN CORP HGB 28.6 pg (26-34); MONOCYTES # 0.5 10^3/uL (0.3-0.8); MONOCYTES % 6.4 % (5.0-12.0); NEUTROPHIL # 4.5 10^3/uL (1.8-7.7); NEUTROPHILS % 59.7 % (41.0-85.0); PLATELET COUNT 293 10^3/uL (150-400)
[2020-09-26] MEDS ORDERED: MORPHINE SULFATE ONE (15:10)
[2020-09-26] MEDS ORDERED: ZOFRAN IV STA (15:11)
[2020-09-26] MEDS ORDERED: MORPHINE SULFATE IV STA (15:11)
[2020-09-26] MEDS ORDERED: NS 1000ML 1,000 ML IV STA (15:11)
[2020-09-26 15:12] LABS: ALANINE AMINOTRANSFERASE(ML) 23 U/L (12-78); ALKALINE PHOSPHATASE 90 U/L (50-136); ASPARTATE AMINO TRANSFERASE 23 U/L (0-35); CALCIUM 8.6 mg/dL (8.4-10.5); CARBON DIOXIDE 27.4 mmol/L (20.0-32); GLUCOSE 123 mg/dL (70-110)
[2020-09-26] MEDS ORDERED: ZOFRAN ONE (15:12)
[2020-09-26] MEDS ORDERED: NS 1000ML 1,000 ML ONE (15:12)
--- NOTE | 2020-09-26 15:22 | ER.PDOC ---
General Chief Complaint: Chest Pain-Cardiac Nature Stated Complaint: CP Time seen by MD: 15:18 Source: patient Exam Limitations: no limitations History of Present Illness Initial Comments Intermittent chest pain for 1 week worse today. Patient took nitro glycerin x2 with some mild relief. She still rates her pain as moderate. She is short of breath but denies nausea, vomiting, cough, fever or chills. Severity/Quality: tightness Radiation: no radiation Prior CP/Workup: No Prior Chest Pain Nitro Today/Relief: 0.4 mg x 2, Provided At Home, Mild Relief Aspirin Today: 325 mg x 1, Provided By ED Associated Symptoms: shortness of breath Allergies: Coded Allergies: ciprofloxacin (Verified Allergy, Unknown, 11/14/18) sulfamethoxazole (Verified Allergy, Unknown, 03/25/19) trimethoprim (Verified Allergy, Unknown, 03/25/19) Home Meds Active Scripts Ascorbic Acid (VITAMIN C) 500 Mg Capsule.er, 1 CAP PO QD for 30 Days, #30 CAP 0 Refills Prov:MANASA LANTIGUA NP 03/19/20 Potassium Chloride (KLOR-CON 10) 10 Meq Tablet.er, 10 MEQ PO DAILY24 for 3 Days, #3 TABLET 0 Refills Prov:MANASA LANTIGUA NP 03/19/20 Zinc Sulfate (ZINC SULFATE) 220 Mg Capsule, 220 MG PO DAILY for 30 Days, CAPSULE Prov:MANASA LANTIGUA NP 03/19/20 Reported Medications Fluticasone Propionate (Allergy Relief) 50 Mcg/Actuation [place].susp, 2 SPR NA QD for 30 Days, MILLILITER 0 Refills 03/17/20 Vitamin D3/Menaquinone 7 (D3 + K2 DOTS 1,000 UNITS TAB) 1 Each Tab.rapdis, 1 TAB PO QD for 30 Days, #30 TAB 0 Refills 03/17/20 Montelukast Sodium (MONTELUKAST SODIUM) 10 Mg Tablet, 1 TAB PO DAILY, #30 TAB 5 Refills 03/17/20 Losartan Potassium (LOSARTAN POTASSIUM) 50 Mg Tablet, 1 TAB PO DAILY, #30 TAB 5 Refills 03/17/20 Esomeprazole Magnesium (NEXIUM) 40 Mg Capsule.dr, 1 CAP PO DAILY, #30 CAP 5 Refills 03/17/20 Chlorthalidone (CHLORTHALIDONE) 25 Mg Tablet, 1 TAB PO DAILY, #30 TAB 5 Refills 03/17/20 Aspirin (ASPIRIN EC) 81 Mg Tablet.dr, 1 TAB PO DAILY, #30 TAB 3 Refills 03/17/20 Tramadol Hcl (TRAMADOL HCL) 50 Mg Tablet, 1 TAB PO Q8HR PRN for PAIN 1 - 3, #90 TAB 03/17/20 Buspirone Hcl (BUSPIRONE HCL) 10 Mg Tablet, 1 TAB PO BID, #60 TAB 1 Refill 03/17/20 Loratadine (LORATADINE) 10 Mg Tab.rapdis, 1 TAB PO QD for allergy symptoms for 30 Days, #30 TAB 0 Refills 03/17/20 Apixaban (Eliquis) 5 Mg Tablet, 5 MG PO BID, TABLET 03/17/20 Isosorbide Mononitrate (ISOSORBIDE MONONITRATE ER) 30 Mg Tab.er.24h, 1 TAB PO DAILY, #30 TAB 5 Refills 03/17/20 Pregabalin (LYRICA) 200 Mg Capsule, 1 CAP PO BID, #60 CAP 03/17/20 Duloxetine Hcl (CYMBALTA) 30 Mg Capsule.dr, 3 CAP PO DAILY, #30 CAP 5 Refills 03/17/20 Past Medical History Medical History: arrhythmia, congestive heart failure, diabetes, GERD, high cholesterol, hypertension, thyroid disease, other Surgical History: back, cholecystectomy, gastric bypass, hysterectomy Family History Significant Family History: no pertinent family hx Social History Smoking: non-smoker Alcohol Use: none Drug Use: none Constitutional: no symptoms reported EENTM: no symptoms reported Respiratory: see HPI Cardiovascular: see HPI Gastrointestinal: no symptoms reported All Other Systems: Reviewed and Negative Physical Exam General Appearance: No Apparent Distress, WD/WN Neck: Non-Tender, Full Range of Motion, Supple, Normal Inspection Respiratory: chest non-tender, lungs clear, normal breath sounds, no respiratory distress, no accessory muscle use Cardiovascular: Normal Peripheral Pulses, Regular Rate, Rhythm, No Edema, No Gallop, No JVD, No Murmur Gastrointestinal: Normal Bowel Sounds, No Organomegaly, No Pulsatile Mass, Non Tender, Soft Extremities: Normal Range of Motion, Non-Tender, Normal Inspection, No Pedal Edema, No Calf Tenderness, Normal Capillary Refill 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: mind reader II-XII NML as Tested, No Motor/Sensory Deficits, Alert, Normal Mood/Affect, Oriented x 3 Skin: Normal Color, Warm/Dry Lymphatic: No Adenopathy Results/Orders Results/Orders Orders - LANA PETE MD Cbc With Auto Diff (09/26/20 14:37) Comprehensive Metabolic Panel (09/26/20 14:37) Creatine Kinase (09/26/20 14:37) Creatine Kinase Mb (09/26/20 14:37) Troponin I (09/26/20 14:37) Probnp B-Type Press Cleaner (09/26/20 14:37) PT (09/26/20 14:37) Partial Thromboplastin Time. (09/26/20 14:37) D-Dimer (09/26/20 14:37) Xr Chest 1v (09/26/20 14:37) Ekg-Routine (09/26/20 14:37) Morphine Sulfate (Morphine Sulfate) (09/26/20 15:10) Morphine Sulfate (Morphine Sulfate) (09/26/20 15:11) Ondansetron Hcl/Pf (Zofran) (09/26/20 15:11) 0.9 % Sodium Chloride (Ns 1000ml) (09/26/20 15:11) 0.9 % Sodium Chloride (Ns 1000ml) (09/26/20 15:12) Ondansetron Hcl/Pf (Zofran) (09/26/20 15:12) Vital Signs Date Time Temp Pulse Resp B/P (MAP) Pulse Ox O2 Delivery O2 Flow Rate FiO2 09/26/20 14:35 98.7 67 20 93 09/26/20 14:35 98.7 67 20 09/26/20 14:35 98.7 67 20 135/80 (98) 93 Room Air Administered Medications Medications (Trade) Dose Ordered Sig/Keith Route PRN Reason Start Time Stop Time Status Last Admin Dose Admin Morphine Sulfate (Morphine Sulfate) 2 mg STAT STAT IV 09/26/20 15:11 09/26/20 15:13 DC 09/26/20 15:15 2 MG Ondansetron HCl (Zofran) 4 mg STAT STAT IV 09/26/20 15:11 09/26/20 15:13 DC 09/26/20 15:16 4 MG Sodium Chloride 1,000 ml @ 100 mls/hr Q10H STAT IV 09/26/20 15:11 09/27/20 01:10 09/26/20 15:16 100 MLS/HR Laboratory Tests Test 09/26/20 14:44 09/26/20 14:45 Prothrombin Time 11.8 SEC (9.6-12.0) Prothrombin Time INR (Non-Therap) 1.1 Activated Partial Thromboplast Time 27.5 SEC (24.67-30.72) D-Dimer 0.43 mg/L (0.19-0.49) Sodium Level 139 mmol/L (132-145) Potassium Level 3.1 mmol/L (3.6-5.2) L Chloride Level 103.0 mmol/L (96-109) Carbon Dioxide Level 27.4 mmol/L (20.0-32) Anion Gap 11.7 Blood Urea Nitrogen 21 mg/dL (7-18) H Creatinine 1.09 mg/dL (0.59-1.40) Estimated GFR () 59.5 (>/=60) Est GFR (CKD-EPI)(Non-Afr Luxembourger) 49.2 (>/=60) BUN/Creatinine Ratio 19.0 Glucose Level 123 mg/dL (70-110) H Calcium Level 8.6 mg/dL (8.4-10.5) Total Bilirubin 0.6 mg/dL (0.2-1.0) Aspartate Amino Transferase (AST) 23 U/L (0-35) Alanine Aminotransferase (ALT) 23 U/L (12-78) Alkaline Phosphatase 90 U/L (50-136) Total Creatine Kinase 67 U/L (26-192) Creatine Kinase MB 0.7 ng/mL (0.5-3.6) Troponin I < 0.02 ng/mL (0.00-0.05) Pro-B-Type Natriuretic Peptide 66 pg/mL (0-125) Total Protein 7.3 g/dL (6.4-8.2) Albumin 3.3 g/dL (3.4-5.0) L Globulin 4.0 Albumin/Globulin Ratio 0.825 White Blood Count 7.5 10^3/uL (4.5-11.0) Red Blood Count 4.51 10^6/uL (4.00-5.20) Hemoglobin 12.9 g/dL (12.0-15.0) Hematocrit 40.5 % (36.0-46.0) Mean Corpuscular Volume 89.8 fL (78-100) Mean Corpuscular Hemoglobin 28.6 pg (26-34) Mean Corpuscular Hemoglobin Concent 31.9 g/dL (33-36.5) L Red Cell Distribution Width 14.0 % (11.5-14.5) Platelet Count 293 10^3/uL (150-400) Mean Platelet Volume 9.7 fL (7.8-11.0) Neutrophils (%) (Auto) 59.7 % (41.0-85.0) Lymphocytes (%) (Auto) 29.1 % (24.0-44.0) Monocytes (%) (Auto) 6.4 % (5.0-12.0) Neutrophils # (Auto) 4.5 10^3/uL (1.8-7.7) Lymphocytes # (Auto) 2.18 10^3/uL1 (1.0-4.8) Monocytes # (Auto) 0.5 10^3/uL (0.3-0.8) Absolute Immature Granulocyte (auto 0.01 10^3 u/L (0-2) Absolute Eosinophils (auto) 0.3 10^3/uL (0.0-0.2) H Immature Granulocytes % 0.10 % (0.00-0.50) Eosinophils % 4.3 % (0.0-5.0) Basophils % 0.4 % (0.0-0.2) H Basophils # 0.0 10^3/uL (0.0-0.1) EKG/XRAY/CT/US EKG: NSR, no ST T wave changes EKG Comments: HR 63, normal P axis XRAY: chest (No active disease) ER DEPART Departure Time of Disposition: 15:21 Disposition: 01 HOME / SELF CARE / HOMELESS Impression: Primary Impression: Chest pain Condition: Stable Referrals: SHOSHANA GALDAMEZ INSPECTING SUPERVISOR (PCP) PRIMARY CARE PROVIDER Comments Admitted to Dr. Jung Duration or Time Spent with Pa: 60 min Problem Qualifiers Primary Impression: Chest pain Chest pain type: unspecified Qualified Codes: R07.9 - Chest pain, unspecified LANA PETE MD September 26, 2020 15:22
--- NOTE | 2020-09-26 15:27 | DIREP ---
PROCEDURE:CHEST 1 VIEW COMPARISON:[facility], CT, CT ABDOMEN W/O, 09/04/2017, 02:22 PM. [facility], CR, XRAY CHEST 2 VWS, 02/12/2020, 03:15 PM. [facility], CR, XRAY CHEST SINGLE VW, 03/17/2020, 05:41 PM. INDICATIONS:Chest pain FINDINGS: LUNGS/PLEURA:No significant pulmonary parenchymal abnormalities. No effusions. VASCULATURE:Normal. Unremarkable pulmonary vasculature. CARDIAC:Normal. No cardiac silhouette abnormality or cardiomegaly. MEDIASTINUM:Normal. No visible mass or adenopathy. BONES:Normal. No fracture or visible bony lesion. OTHER:Negative. CONCLUSION:Normal examination. Dictated by: Tony Monsivais III, MD on 09/26/2020 at 03:24 PM
[2020-09-26 15:45] VITALS: BP 99/51
[2020-09-26 15:58] VITALS: BP 130/71
--- NOTE | 2020-09-26 16:00 | NUR ---
ARRIVAL PATIENT ARRIVED ON MED-SURG UNIT AT THIS TIME TO ROOM #338. RECEIVED REPORT, ASSUMED CARE. PATIENT PLACED ON TELEMETRY MONITORING.
--- NOTE | 2020-09-26 18:29 | PCM.HP ---
HISTORY & PHYSICAL HISTORY & PHYSICAL DATE OF ADMISSION:2020 CHIEF COMPLAINT: Chest pain on and off for 3 weeks HISTORY OF PRESENT ILLNESS: 75-year-old female with Previous history of atrial fibrillation angina congestive heart failure hypothyroidism diabetes mellitus hypertension dyslipidemia fibromyalgia and chronic hypokalemia was experiencing intermittent chest pain pressure in nature precordium and mid chest area last few minutes at a time precipitated or aggravated by activities relieved by nitro or rest She was instructed by her medical technologist chemistry if she ever need more than 2 sublingual nitro ,She should go to the emergency room ,Today she had chest pain again and had needed to take more than 1 dose of sublingual nitro therefore she decided to come to the ER in the ER patient was evaluated and found to have chest pain without any EKG changes or troponin leak patient was admitted for further evaluation and management Patient claims she had underwent coronary angiogram about 2 years prior to this admission and that was reported as normal Patient denies any acute symptoms like upper respiratory infection sore throat runny nose cough wheezing increase sputum production and denies any trauma no abdominal pain no GERD symptoms denies any diarrhea no dysuria hematuria or increased frequency of urination but she claims she will wake up around 3-4 times at night to urinate denies any leg cramps but sometimes will get cramping of the arms she claims she is losing weight ALLERGIES: No known drug allergies CURRENT MEDICATIONS: Patient unable to remember any of the medication but as per ER record patient was taking montelukast 10 mg daily, Losartan 50 mg daily Nexium 40 mg daily chlorthalidone 25 mg daily aspirin 81 mg daily tramadol 50 mg every 8 hourly as needed buspirone 10 mg daily loratadine 10 mg daily and Eliquis 5 mg daily isosorbide mononitrate 30 mg daily Lyrica 200 mg capsule twice daily and duloxetine 30 mg 3 capsule p.o. daily reliability of this Medication list is questionable PAST MEDICAL HISTORY: Atrial fibrillation angina CHF hypothyroidism fibromyalgia diabetes mellitus type 2 hypertension dyslipidemia arthritis and sleep apnea on home CPAP SOCIAL HISTORY: Living with family member no smoking no alcohol intake or drug use, Sedentary lifestyle FAMILY HISTORY: Patient's mother had diabetes mellitus hypertension and congestive heart failure REVIEW OF SYSTEMS: Generalized body aches and pain secondary to fibromyalgia ,Effort dyspnea intermittent chest pain no fever sore throat headache nausea vomiting cough or wheezing denies any abdominal pain have intermittent constipation no melena or hematochezia no urinary symptoms joint pain secondary to arthritis VITAL SIGNS: Vital Signs Date Time Temp Pulse Resp B/P (MAP) Pulse Ox O2 Delivery O2 Flow Rate FiO2 09/26/20 17:52 Room Air 09/26/20 17:02 Room Air 09/26/20 16:18 Room Air 09/26/20 15:58 97.6 59 16 130/71 (90) 91 09/26/20 15:45 64 99/51 (67) 95 Room Air 09/26/20 14:35 98.7 67 20 93 09/26/20 14:35 98.7 67 20 09/26/20 14:35 98.7 67 20 135/80 (98) 93 Room Air PHYSICAL EXAMINATION: General: patient is comfortably lying in bed not in distress HEENTHome anisocoria bilateral cataract surgery pupil round react light neck supple mucous membrane is moist Lungs: Air entry symmetrical no added sound heard no rales rhonchi or wheezes heard Heart regular rate and rhythm:,Clinically not enlarged Abdomen: Obese nontender bowel sounds present no organomegaly or masses felt Extremities: No calf tenderness trace edema bilaterally present dorsalis pedis pulses present bilaterally FRONT END DRUPAL DEVELOPER: Patient is awake alert oriented x3,Cranial nerve grossly intact muscle power 5-/5 in all 4 limbs symmetrical Psych/mental:Normal mood, no anxiety or depression noted LABORATORY DATA: Laboratory Tests Test 09/26/20 14:44 09/26/20 14:45 09/26/20 17:23 Prothrombin Time 11.8 SEC (9.6-12.0) Prothrombin Time INR (Non-Therap) 1.1 Activated Partial Thromboplast Time 27.5 SEC (24.67-30.72) D-Dimer 0.43 mg/L (0.19-0.49) Sodium Level 139 mmol/L (132-145) Potassium Level 3.1 mmol/L (3.6-5.2) Chloride Level 103.0 mmol/L (96-109) Carbon Dioxide Level 27.4 mmol/L (20.0-32) Anion Gap 11.7 Blood Urea Nitrogen 21 mg/dL (7-18) Creatinine 1.09 mg/dL (0.59-1.40) Estimated GFR () 59.5 (>/=60) Est GFR (CKD-EPI)(Non-Afr Maltese) 49.2 (>/=60) BUN/Creatinine Ratio 19.0 Glucose Level 123 mg/dL (70-110) Calcium Level 8.6 mg/dL (8.4-10.5) Total Bilirubin 0.6 mg/dL (0.2-1.0) Aspartate Amino Transf (AST/SGOT) 23 U/L (0-35) Alanine Aminotransferase (ALT/SGPT) 23 U/L (12-78) Alkaline Phosphatase 90 U/L (50-136) Total Creatine Kinase 67 U/L (26-192) Creatine Kinase MB 0.7 ng/mL (0.5-3.6) Troponin I < 0.02 ng/mL (0.00-0.05) Pro-B-Type Natriuretic Peptide 66 pg/mL (0-125) Total Protein 7.3 g/dL (6.4-8.2) Albumin 3.3 g/dL (3.4-5.0) Globulin 4.0 Albumin/Globulin Ratio 0.825 White Blood Count 7.5 10^3/uL (4.5-11.0) Red Blood Count 4.51 10^6/uL (4.00-5.20) Hemoglobin 12.9 g/dL (12.0-15.0) Hematocrit 40.5 % (36.0-46.0) Mean Corpuscular Volume 89.8 fL (78-100) Mean Corpuscular Hemoglobin 28.6 pg (26-34) Mean Corpuscular Hemoglobin Concent 31.9 g/dL (33-36.5) Red Cell Distribution Width 14.0 % (11.5-14.5) Platelet Count 293 10^3/uL (150-400) Mean Platelet Volume 9.7 fL (7.8-11.0) Neutrophils (%) (Auto) 59.7 % (41.0-85.0) Lymphocytes (%) (Auto) 29.1 % (24.0-44.0) Monocytes (%) (Auto) 6.4 % (5.0-12.0) Neutrophils # (Auto) 4.5 10^3/uL (1.8-7.7) Lymphocytes # (Auto) 2.18 10^3/uL1 (1.0-4.8) Monocytes # (Auto) 0.5 10^3/uL (0.3-0.8) Absolute Immature Granulocyte (auto 0.01 10^3 u/L (0-2) Absolute Eosinophils (auto) 0.3 10^3/uL (0.0-0.2) Immature Granulocytes % 0.10 % (0.00-0.50) Eosinophils % 4.3 % (0.0-5.0) Basophils % 0.4 % (0.0-0.2) Basophils # 0.0 10^3/uL (0.0-0.1) Bedside Glucose 102 (70 - 110) IMAGING: FINDINGS: LUNGS/PLEURA:No significant pulmonary parenchymal abnormalities. No effusions. VASCULATURE:Normal. Unremarkable pulmonary vasculature. CARDIAC:Normal. No cardiac silhouette abnormality or cardiomegaly. MEDIASTINUM:Normal. No visible mass or adenopathy. BONES:Normal. No fracture or visible bony lesion. OTHER:Negative. CONCLUSION:Normal examination. SUMMARY: ASSESSMENT/PLAN: 1. Atypical chest pain with multiple risk factor 2. Hypertension 3. Diabetes mellitus Type II 4. Dyslipidemia 5. Paroxysmal atrial fibrillation 6. Hypothyroidism 7. Polyarthritis suspect osteoarthritis 8. History of fibromyalgia 9.Sleep apnea 10. Obesity BMI 42.6 11. Sedentary lifestyle Plan:We will obtain home medication and restart appropriately, 1600-calorie ADA diet blood sugar management with insulin we will repeat labs in the morning including TSH hemoglobin A1c and lipid panel Consult medical technologist chemistry for further recommendation of management of chest pain rule out acute coronary syndrome PT OT to evaluate and treat LUCILLE TOMPKINS MD September 26, 2020 18:28
[2020-09-26] MEDS ORDERED: NITRO-DUR 0.2MG PATCH TD STA (18:39)
[2020-09-26] MEDS ORDERED: HUMALOG SQ ONE (19:00)
[2020-09-26 20:06] VITALS: BP 91/50
[2020-09-26 20:28] LABS: BASOPHIL % 0.3 % (0.0-0.2); EOSINOPHIL # 0.3 10^3/uL (0.0-0.2); EOSINOPHIL % 4.8 % (0.0-5.0); LYMPHOCYTES % 28.7 % (24.0-44.0); MEAN CORP HGB 29.2 pg (26-34); MONOCYTES # 0.3 10^3/uL (0.3-0.8); MONOCYTES % 5.4 % (5.0-12.0); NEUTROPHIL # 3.8 10^3/uL (1.8-7.7); NEUTROPHILS % 60.6 % (41.0-85.0); PLATELET COUNT 251 10^3/uL (150-400); RED CELL DISTRIBUTION WIDTH 14.1 % (11.5-14.5)
[2020-09-26] MEDS ORDERED: NITRO-DUR 0.4MG PATCH TD ONE (21:03)
[2020-09-26] MEDS: KLOR-CON 10 PO SCH (21:05)
[2020-09-26] MEDS: LYRICA PO SCH (21:06)
[2020-09-26] MEDS: BUSPAR PO SCH (21:06)
[2020-09-26] MEDS: ELIQUIS PO SCH (21:07)
[2020-09-26] MEDS ORDERED: NITRO-DUR 0.2MG PATCH TD ONE (21:09)
[2020-09-27 00:55] VITALS: BP 106/61
[2020-09-27 04:28] VITALS: BP 111/59
[2020-09-27 05:52] LABS: CALCIUM 8.3 mg/dL (8.4-10.5); CARBON DIOXIDE 27.7 mmol/L (20.0-32)
[2020-09-27 08:00] VITALS: BP 120/62
[2020-09-27] MEDS ORDERED: ASPIRIN EC PO SCH (09:00)
[2020-09-27] MEDS: LYRICA PO SCH ×2 (10:13→21:07)
[2020-09-27] MEDS: ULTRAM PO PRN (10:13)
[2020-09-27] MEDS: BUSPAR PO SCH ×2 (10:14→21:07)
[2020-09-27] MEDS: ELIQUIS PO SCH ×2 (10:14→21:07)
[2020-09-27] MEDS: ASPIRIN EC PO SCH (10:14)
[2020-09-27] MEDS: COZAAR PO SCH (10:14)
[2020-09-27] MEDS: CYMBALTA PO SCH (10:14)
[2020-09-27] MEDS: PROTONIX PO SCH (10:15)
[2020-09-27] MEDS: CHLORTHALIDONE PO SCH (10:15)
[2020-09-27] MEDS: KLOR-CON 10 PO SCH (10:15)
[2020-09-27] MEDS: IMDUR PO SCH (10:15)
[2020-09-27] MEDS: SINGULAIR PO SCH (10:15)
[2020-09-27 11:40] VITALS: BP 144/74
--- NOTE | 2020-09-27 12:30 | NUR ---
CASE MANAGEMENT/DISCHARGE PLANNING CM VISITED WITH PATIENT ABOUT DISCHARGE PLANNING. PATIENT CURRENTLY LIVES @ [facility] AND IS IND WITH ALL ADL. CURRENTLY ON SERVICES FOR [facility] AND STATES THAT THEY CHECK ON HER WEEKLY AND ARE FIXING TO RESTART HER PHYSICAL THERAPY. CURRENTLY HER DAUGHTER CHECKS ON HER AND HELPS HER NEEDED. PATIENT REPORTS SEES SHOSHANA GALDAMEZ PCP AND PLANS TO DISCHARGE HOME TO SELF CARE WITH [facility] TO CONTINUE SERVICES. PATIENT REPORTS HAS WALKER, CANE AND SHOWER BENCH AND DENIES NEED FOR ANY OTHER EQUIPMENT. VOICES THE ONLY CONCERN SHE HAS IS FOR DENTAL SERVICES, DUE TO COST OF DENTIST. [facility] INFORMATION GIVEN TO PATIENT IN [place] WITH INFORMATION ON DENTIST THAT PROVIDES SERVICES AND PRICES ARE INCOME BASED. DENIES ANY FURTHER CM NEEDS. CHERYL [email or web address] INFORMED OF PATIENT'S OBS STATUS AT HOSPITAL. PATIENT ON SERVICES FOR THEM FOR TYPE 2 DM. WILL LET MAGALI KNOW IF PATIENT'S STATUS CHANGES TO IP STATUS.
--- NOTE | 2020-09-27 14:32 | PRM.PN ---
PROGRESS NOTE SUBJECTIVE Feeling better no chest pain short no shortness of breath, Tolerating p.o. intake well,Complaining of gum painDose for several days today she claims that is worse OBJECTIVE Vital Signs Date Time Temp Pulse Resp B/P (MAP) Pulse Ox O2 Delivery O2 Flow Rate FiO2 09/27/20 11:40 98.3 65 18 144/74 (97) 96 09/27/20 10:15 111/59 09/27/20 10:14 111/59 09/27/20 09:17 Room Air 09/27/20 08:00 97.9 62 18 120/62 (81) 95 General: Patient is awake alert oriented no acute distress noted HEENT:Anicteric sclera pupil react light mucous membrane is moist neck supple no carotid bruit,There is dental caries on the upper jaw Lungs: Air entry symmetrical diminished bilaterally no rales or rhonchi heard Heart: S1-S2 heard no murmur gallop appreciated Abdomen: Obese nontender bowel sounds present no masses organomegaly noted Extremities: Moves all 4 limbs trace edema present bilaterally no calf tenderness present INTERNAL COMBUSTION ENGINEER: Cranial nerves grossly intact muscle power 5-/5 in all 4 limbs Psych/mental:Normal mood and affect Laboratory Tests Test 09/26/20 14:44 09/26/20 14:45 09/26/20 17:23 09/26/20 20:25 Prothrombin Time 11.8 SEC (9.6-12.0) Prothrombin Time INR (Non-Therap) 1.1 Activated Partial Thromboplast Time 27.5 SEC (24.67-30.72) D-Dimer 0.43 mg/L (0.19-0.49) Sodium Level 139 mmol/L (132-145) Potassium Level 3.1 mmol/L (3.6-5.2) Chloride Level 103.0 mmol/L (96-109) Carbon Dioxide Level 27.4 mmol/L (20.0-32) Anion Gap 11.7 Blood Urea Nitrogen 21 mg/dL (7-18) Creatinine 1.09 mg/dL (0.59-1.40) Estimated GFR () 59.5 (>/=60) Est GFR (CKD-EPI)(Non-Afr Kittitian) 49.2 (>/=60) BUN/Creatinine Ratio 19.0 Glucose Level 123 mg/dL (70-110) Calcium Level 8.6 mg/dL (8.4-10.5) Total Bilirubin 0.6 mg/dL (0.2-1.0) Aspartate Amino Transf (AST/SGOT) 23 U/L (0-35) Alanine Aminotransferase (ALT/SGPT) 23 U/L (12-78) Alkaline Phosphatase 90 U/L (50-136) Total Creatine Kinase 67 U/L (26-192) Creatine Kinase MB 0.7 ng/mL (0.5-3.6) Troponin I < 0.02 ng/mL (0.00-0.05) < 0.02 ng/mL (0.00-0.05) Pro-B-Type Natriuretic Peptide 66 pg/mL (0-125) Total Protein 7.3 g/dL (6.4-8.2) Albumin 3.3 g/dL (3.4-5.0) Globulin 4.0 Albumin/Globulin Ratio 0.825 White Blood Count 7.5 10^3/uL (4.5-11.0) 6.3 10^3/uL (4.5-11.0) Red Blood Count 4.51 10^6/uL (4.00-5.20) 4.08 10^6/uL (4.00-5.20) Hemoglobin 12.9 g/dL (12.0-15.0) 11.9 g/dL (12.0-15.0) Hematocrit 40.5 % (36.0-46.0) 37.4 % (36.0-46.0) Mean Corpuscular Volume 89.8 fL (78-100) 91.7 fL (78-100) Mean Corpuscular Hemoglobin 28.6 pg (26-34) 29.2 pg (26-34) Mean Corpuscular Hemoglobin Concent 31.9 g/dL (33-36.5) 31.8 g/dL (33-36.5) Red Cell Distribution Width 14.0 % (11.5-14.5) 14.1 % (11.5-14.5) Platelet Count 293 10^3/uL (150-400) 251 10^3/uL (150-400) Mean Platelet Volume 9.7 fL (7.8-11.0) 9.9 fL (7.8-11.0) Neutrophils (%) (Auto) 59.7 % (41.0-85.0) 60.6 % (41.0-85.0) Lymphocytes (%) (Auto) 29.1 % (24.0-44.0) 28.7 % (24.0-44.0) Monocytes (%) (Auto) 6.4 % (5.0-12.0) 5.4 % (5.0-12.0) Neutrophils # (Auto) 4.5 10^3/uL (1.8-7.7) 3.8 10^3/uL (1.8-7.7) Lymphocytes # (Auto) 2.18 10^3/uL1 (1.0-4.8) 1.80 10^3/uL1 (1.0-4.8) Monocytes # (Auto) 0.5 10^3/uL (0.3-0.8) 0.3 10^3/uL (0.3-0.8) Absolute Immature Granulocyte (auto 0.01 10^3 u/L (0-2) 0.01 10^3 u/L (0-2) Absolute Eosinophils (auto) 0.3 10^3/uL (0.0-0.2) 0.3 10^3/uL (0.0-0.2) Immature Granulocytes % 0.10 % (0.00-0.50) 0.20 % (0.00-0.50) Eosinophils % 4.3 % (0.0-5.0) 4.8 % (0.0-5.0) Basophils % 0.4 % (0.0-0.2) 0.3 % (0.0-0.2) Basophils # 0.0 10^3/uL (0.0-0.1) 0.0 10^3/uL (0.0-0.1) Bedside Glucose 102 (70 - 110) Test 09/26/20 20:42 09/27/20 00:00 09/27/20 05:02 09/27/20 11:38 Bedside Glucose 136 (70 - 110) 156 (70 - 110) Troponin I < 0.02 ng/mL (0.00-0.05) < 0.02 ng/mL (0.00-0.05) Sodium Level 145 mmol/L (132-145) Potassium Level 2.9 mmol/L (3.6-5.2) Chloride Level 106.0 mmol/L (96-109) Carbon Dioxide Level 27.7 mmol/L (20.0-32) Anion Gap 14.2 Blood Urea Nitrogen 18 mg/dL (7-18) Creatinine 0.99 mg/dL (0.59-1.40) Estimated GFR () 66.5 (>/=60) Est GFR (CKD-EPI)(Non-Afr [place]) 55.0 (>/=60) BUN/Creatinine Ratio 18.0 Glucose Level 121 mg/dL (70-110) Hemoglobin A1c 9.2 % (0-5.7) Calcium Level 8.3 mg/dL (8.4-10.5) Phosphorus Level 3.5 mg/dL (2.5-4.9) Magnesium Level 1.9 mg/dL (1.8-2.4) Total Bilirubin 0.5 mg/dL (0.2-1.0) Aspartate Amino Transf (AST/SGOT) 22 U/L (0-35) Alanine Aminotransferase (ALT/SGPT) 19 U/L (12-78) Alkaline Phosphatase 82 U/L (50-136) Total Protein 6.4 g/dL (6.4-8.2) Albumin 2.8 g/dL (3.4-5.0) Globulin 3.6 Albumin/Globulin Ratio 0.777 Triglycerides Level 176 mg/dL (20-200) Cholesterol Level 183 mg/dL (120-240) LDL Cholesterol, Calculated 105.8 VLDL Cholesterol, Calculated 35.2 HDL Cholesterol 42 mg/dL (32-96) Cholesterol Ratio (LDL/HDL) 2.5 Cholesterol/HDL Ratio [id number] Thyroid Stimulating Hormone (TSH) 4.138 mIU/mL (0.358-3.740) Current Medications Medications (Trade) Dose Ordered Sig/Keith Route PRN Reason Start Time Stop Time Status Last Admin Dose Admin Morphine Sulfate (Morphine Sulfate) 2 mg STK-MED ONCE .ROUTE 09/26/20 15:10 09/26/20 15:11 DC Sodium Chloride 1,000 ml @ ud STK-MED ONCE .ROUTE 09/26/20 15:12 09/26/20 15:12 DC Ondansetron HCl (Zofran) 4 mg STK-MED ONCE .ROUTE 09/26/20 15:12 09/26/20 15:12 DC Morphine Sulfate (Morphine Sulfate) 2 mg STAT STAT IV 09/26/20 15:11 09/26/20 15:13 DC 09/26/20 15:15 Ondansetron HCl (Zofran) 4 mg STAT STAT IV 09/26/20 15:11 09/26/20 15:13 DC 09/26/20 15:16 Sodium Chloride 1,000 ml @ 100 mls/hr Q10H STAT IV 09/26/20 15:11 09/27/20 01:10 DC 09/26/20 15:16 Insulin Human Lispro (Humalog) 3 unit OT ONCE SQ 09/26/20 19:00 09/26/20 20:53 DC Aspirin (Aspirin Ec) 162 mg DAILY PO 09/27/20 09:00 09/26/20 19:04 DC Nitroglycerin (Nitro-Dur 0.2mg Patch) 1 each STAT STAT TD 09/26/20 18:39 09/26/20 20:55 DC 09/26/20 21:09 Buspirone HCl (Buspar) 10 mg BID PO 09/26/20 21:00 10/26/20 20:59 09/27/20 10:14 Chlorthalidone (Chlorthalidone) 25 mg DAILY PO 09/27/20 09:00 10/27/20 08:59 09/27/20 10:15 Duloxetine HCl (Cymbalta) 90 mg DAILY PO 09/27/20 09:00 10/27/20 08:59 09/27/20 10:14 Pantoprazole Sodium (Protonix) 40 mg DAILY PO 09/27/20 09:00 10/27/20 08:59 09/27/20 10:15 Isosorbide Mononitrate (Imdur) 30 mg DAILY PO 09/27/20 09:00 10/27/20 08:59 09/27/20 10:15 Losartan Potassium (Cozaar) 50 mg DAILY PO 09/27/20 09:00 10/27/20 08:59 09/27/20 10:14 Montelukast Sodium (Singulair) 10 mg DAILY PO 09/27/20 09:00 10/27/20 08:59 09/27/20 10:15 Potassium Chloride (Klor-Con 10) 10 meq DAILY24 PO 09/26/20 19:00 10/26/20 18:59 09/27/20 10:15 Tramadol HCl (Ultram) 50 mg Q8HR PRN PO PAIN 1 - 3 09/26/20 19:00 10/26/20 18:59 09/27/20 10:13 Aspirin (Aspirin Ec) 81 mg DAILY PO 09/27/20 09:00 10/27/20 08:59 09/27/20 10:14 Pregabalin (Lyrica) 50 mg BID PO 09/26/20 21:00 10/26/20 20:59 09/27/20 10:13 Nitroglycerin (Nitro-Dur 0.4mg Patch) 1 each STK-MED ONCE TD 09/26/20 21:03 09/26/20 21:03 DC Nitroglycerin (Nitro-Dur 0.2mg Patch) 1 each STK-MED ONCE TD 09/26/20 21:09 09/26/20 21:09 DC Rosuvastatin Calcium (Crestor) 20 mg HS PO 09/27/20 21:00 10/27/20 20:59 ASSESSMENT 1. Atypical chest pain with multiple risk factor resolved, troponin remain negative 2. Hypertension 3. Diabetes mellitus type 2 4. Dyslipidemia 5. Paroxysmal atrial fibrillation 6. Hypothyroidism 7. Polyarthritis s osteoarthritis 8. History of fibromyalgia 9. Sleep apnea use home CPAP 10. Obesity BMI 42.6 11. Hypokalemia 12. Dental caries with gingivitis PLAN Patient is currently doing well ,her medication was readjusted ,Replace potassium,physical therapist can be started now and await fast food crew lead recommendation for discharge planning We will start patient on Augmentin 875 mg twice daily,Peridex mouthwash and viscous lidocaine for pain control LUCILLE TOMPKINS MD September 27, 2020 14:32
[2020-09-27] MEDS ORDERED: LIDOCAINE HCL VISCOUS MM PRN (15:30)
[2020-09-27] MEDS: EFFER-K 10 MEQ TABLET EFF PO SCH ×2 (15:47→21:07)
[2020-09-27] MEDS: PERIDEX MM SCH (15:47)
[2020-09-27] MEDS: AUGMENTIN 875-125 TABLET PO SCH ×2 (15:53→21:06)
[2020-09-27 16:40] VITALS: BP 119/61
[2020-09-27] MEDS ORDERED: PROTONIX IV IV STA (17:49)
--- NOTE | 2020-09-27 17:58 | PCM.EKG ---
[facility] Test Date: 2020-09-27 Test Time: 17:56:13 Pat Name: ERICH LAI Department: Room: 338 A Gender: F Radio Adjuster: SHEBA : 1945 Requested By: PERRY BERUMEN Order Number: [id number] Reading MD: Measurements Intervals [place] Rate: 65 P: 45 MO: 191 QRS: -54 QRSD: 104 T: 56 QT: 476 QTc: 495 Interpretive Statements Sinus rhythm Left anterior fascicular block Abnormal R-wave progression, late transition Borderline abnrm T, anterolateral leads Borderline prolonged QT interval Compared to ECG 09/26/2020 14:36:45 T-wave abnormality no longer present Please click the below link to view image of tracing.
[2020-09-27] MEDS: TYLENOL PO PRN (18:12)
--- NOTE | 2020-09-27 18:35 | NUR ---
REPORT REPORT GIVEN TO ONCOMING SHIFT. RELINQUISHED CARE FOR PATIENT AT THIS TIME.
[2020-09-27 19:52] VITALS: BP 140/83
[2020-09-27] MEDS ORDERED: CRESTOR PO SCH (21:00)
[2020-09-27] MEDS ORDERED: CRESTOR PO ONE (21:05)
[2020-09-27] MEDS ORDERED: EFFER-K 10 MEQ TABLET EFF ONE (22:44)
[2020-09-28 00:12] VITALS: BP 114/70
--- NOTE | 2020-09-28 01:03 | CNH ---
DATE OF CONSULTATION: 09/27/2020 DICTATOR NAME: PERRY BERUMEN DO REASON FOR CONSULTATION: Chest pain, rule out acute coronary syndrome. HISTORY OF PRESENT ILLNESS: This is a 75-year-old female who presented to the emergency room with symptoms of chest discomfort, which she describes as pressure in the substernal region without any radiation. She apparently took sublingual nitroglycerin without any relief and so she reported to the emergency room. Upon presentation to the ED, EKG shows normal sinus rhythm with a left anterior fascicular block with no evidence of myocardial ischemia. Troponin is currently negative x4. She is currently chest pain free. A consultation has been placed to Cardiology service for evaluation for chest pain. PAST MEDICAL HISTORY: Significant for: 1. Paroxysmal atrial fibrillation -- the patient is on Eliquis for oral anticoagulation. 2. Chronic CHF. 3. Hypothyroidism. 4. Diabetes mellitus. 5. Hypertension. 6. Dyslipidemia. 7. Fibromyalgia. PAST SURGICAL HISTORY: She reports cardiac catheterization 2 years ago that shows nonobstructive CAD. ALLERGIES: CIPROFLOXACIN, SULFAMETHOXAZOLE AND TRIMETHOPRIM. MEDICATIONS: She takes at home include: 1. Fluticasone. 2. Montelukast. 3. Losartan 50 mg daily. 4. Nexium. 5. Chlorthalidone 25 mg daily. 6. Aspirin 81 mg daily. 7. Tramadol. 8. Buspirone. 9. Eliquis 5 mg p.o. b.i.d. 10. Imdur 30 mg p.o. every day. 11. Lyrica. 12. Duloxetine. FAMILY HISTORY: She denies any family history of premature coronary artery disease or sudden cardiac . SOCIAL HISTORY: She denies alcohol use, denies tobacco use, denies illicit drug use. REVIEW OF SYSTEMS: As per HPI and as per previous records. All systems reviewed and negative for interval change. PHYSICAL EXAMINATION: VITAL SIGNS: Blood pressure is 119/61, respiratory rate is 18, pulse is 63, temperature is 97.4, pulse oximetry 96% on room air. GENERAL: She is in no apparent distress, alert and oriented x3. HEENT: Normocephalic, atraumatic. Extraocular muscles intact. Pupils equally round, reactive to light and accommodation. CARDIAC: S1, S2. No gallops, murmurs, rubs, or clicks. LUNGS: Clear to auscultation bilaterally. No wheezing, rhonchi or rales. ABDOMEN: Soft, nontender, nondistended. Positive bowel sounds in all four quadrants. EXTREMITIES: No cyanosis, no clubbing, no edema. +2 pedal pulses palpable bilaterally. NEUROLOGIC: No neurological deficits. Sensation is intact. ASSESSMENT: 1. Chest pain, rule out acute coronary syndrome. 2. Paroxysmal atrial fibrillation -- currently in normal sinus rhythm. 3. The patient reports nonobstructive coronary artery disease by left heart catheterization done 2 years ago. 4. Chronic congestive heart failure -- not active at this time. 5. Hypothyroidism. 6. Type 2 diabetes mellitus. 7. Hypertension. 8. Dyslipidemia. 9. Obstructive sleep apnea on CPAP therapy. 10. Fibromyalgia. 11. Obesity. RECOMMENDATIONS: This is a 75-year-old female who presented to the emergency room with symptoms of chest discomfort in the substernal region that persisted after sublingual nitroglycerin was taken by the patient. Upon presentation to the ED, EKG shows normal sinus rhythm with a left anterior fascicular block with no evidence of myocardial ischemia. Troponin is currently negative x4. She is currently chest pain free at this time. She reports normal heart catheterization 2 years ago. PLAN: I am going to obtain a 2D echo to evaluate her left ventricular ejection fraction and structural integrity of her heart. I would recommend to keep her on telemetry at this time. If 2D echo shows no evidence of wall motion abnormalities with normal left ventricular ejection fraction, she can be discharged home from my standpoint to follow up with me in the office in 2-3 weeks. She certainly has multiple risk factors for coronary artery disease and so, I would pursue cardiac stress test in the outpatient setting to rule out myocardial ischemia. No invasive cardiac workup is planned at this time. Further recommendations will be made based on her overall clinical course. Alphonse MALDONADO D.O. DR: PALOOM/MEAGAN TIAshutosh: [phone] RECEIPT: [id number]
[2020-09-28] MEDS: ULTRAM PO PRN (02:41)
[2020-09-28] MEDS: PERIDEX MM SCH (02:42)
[2020-09-28 03:43] VITALS: BP 129/83
[2020-09-28 05:06] LABS: CALCIUM 8.8 mg/dL (8.4-10.5); CARBON DIOXIDE 31.2 mmol/L (20.0-32)
[2020-09-28] MEDS: TYLENOL PO PRN (05:54)
[2020-09-28 08:02] VITALS: BP 128/74
--- NOTE | 2020-09-28 09:26 | PCM.ECHO ---
APPROVED REPORT EXAM: Comprehensive 2D, Doppler, and color-flow Echocardiogram. Patient Location: IN-PATIENT Rhythm: NSR Indications Chest Pain 2D Dimensions LVOT Diameter 2.10 (1.8-2.4cm) LVEF(%) 66.84 (>50%) M-Mode Dimensions RVDd 1.25 (2.1-3.2cm) Left Atrium(MM) 4.15 (2.5-4.0cm) IVSd 1.05 (0.7-1.1cm) Aortic Root 2.35 (2.2-3.7cm) LVDd 5.45 (4.0-5.6cm) Aortic Cusp Exc 1.65 (1.5-2.0cm) PWd 0.90 (0.7-1.1cm) MV EPSS 2.37 (<0.5cm) IVSs 1.60 cm FS (%) 40.40 % LVDs 3.25 (2.0-3.8cm) ESV(Teich) 43.10 ml PWs 1.40 cm LVEF(%) 70.58 (>50%) Volumes Biplane 2D LV Volumes Biplane 2D LA Volumes LVEDv A4C 122.57 mL LA ESV Index LVESv A4C 40.64 mL Aortic Valve AoV Peak Robert. 1.40 m/s AoV VTI 24.10 cm AO Peak GR. 8.10 mmHg AO Mean GR. 4.25 mmHg LVOT VTI 18.39 cm LVOT Peak Robert. 0.69 m/s BENJAMIN(VTI)/BSA 2.64 cm2/m2 BENJAMIN (VTI) 2.64 cm2 AI P 1/2 Time 946.80 ms Mitral Valve MV E Velocity 0.95m/s MR Peak Gr. 28.95mmHg MV A Velocity 0.80m/s TDI Lateral E' P. V 0.07m/s Medial E' P. V 0.09m/s Pulmonary Valve PV Peak Velocity 0.80m/s PV Peak Grad. 2.70mmHg RVOT VTI 15.62cm Tricuspid Valve TR P. Velocity 1.80m/s RAP ESTIMATE 10.00mmHg TR Peak Gr. 12.99mmHg RVSP 22.99mmHg LEFT VENTRICLE The left ventricle is normal size. The left ventricular systolic function is normal. The left ventricular ejection fraction is within the normal range. There is normal left ventricular wall thickness. There is normal LV segmental wall motion. There is no ventricular septal defect visualized. No left ventricle thrombus noted on this study. LVEF is 55%. RIGHT VENTRICLE The right ventricle is normal size. The right ventricular systolic function is normal. There is normal right ventricular wall thickness. ATRIA The left atrium size is normal. The right atrium size is normal. The interatrial septum is intact with no evidence for an atrial septal defect. AORTIC VALVE The aortic valve is normal in structure. There is no aortic valvular stenosis. Moderate aortic regurgitation. There is no aortic valvular vegetation. MITRAL VALVE The mitral valve is normal in structure. There is no mitral valve stenosis. Mild mitral regurgitation. There is no evidence of mitral valve vegetations. TRICUSPID VALVE The tricuspid valve is normal in structure. There is no tricuspid valve stenosis. Mild tricuspid regurgitation. PULMONIC VALVE Pulmonic valve is not well visualized. There is no pulmonic valvular stenosis. There is no pulmonic valvular regurgitation. GREAT VESSELS The aortic root is normal in size. Pulmonary artery is not well visualized. Aortic arch is not well visualized. The IVC is normal in size and collapses >50% with inspiration. PERICARDIUM There is no pericardial effusion. There is no pleural effusion. Other Information Study Quality: Fair <Conclusion> The left ventricular systolic function is normal. LVEF is 55%. Moderate aortic regurgitation. Mild mitral regurgitation. Mild tricuspid regurgitation. Electronically signed by : PERRY BERUMEN. 09/28/2020 09:25:59
[2020-09-28] MEDS: LYRICA PO SCH (09:57)
[2020-09-28] MEDS: BUSPAR PO SCH (09:57)
[2020-09-28] MEDS: PROTONIX PO SCH (09:57)
[2020-09-28] MEDS: SINGULAIR PO SCH (09:57)
[2020-09-28] MEDS: ELIQUIS PO SCH (09:57)
[2020-09-28] MEDS: CYMBALTA PO SCH (09:58)
[2020-09-28] MEDS: IMDUR PO SCH (09:58)
[2020-09-28] MEDS: ASPIRIN EC PO SCH (09:58)
[2020-09-28] MEDS: AUGMENTIN 875-125 TABLET PO SCH (09:58)
[2020-09-28] MEDS: CHLORTHALIDONE PO SCH (09:59)
[2020-09-28] MEDS: COZAAR PO SCH (09:59)
--- NOTE | 2020-09-28 11:07 | PRM.PN ---
Subjective Subjective Date: September 28, 2020 Time: 11:03 Subjective Patient resting comfortably. No new cardiac events overnight Review of Systems Eyes: No: Pain, Vision change, Conjunctivae inflammation, Eyelid inflammation, Other, Redness ENT: No: Ear pain, Ear discharge, Nose pain, Nose discharge, Nose congestion, Mouth pain, Mouth swelling, Throat pain, Throat swelling, Other Respiratory: No: Cough, Dry, Shortness of breath, SOB with excertion, Wheezing, Hemoptysis, Pleuritic Pain, Sputum, Wheezing, Other Cardiovascular: No: Chest Pain, Palpitations, Orthopnea, Paroxysmal Noc. Dyspnea, Edema, Lt Headedness, Other Gastrointestinal: No: Nausea, Vomiting, Abdominal Pain, Diarrhea, Constipation, Melena, Hematochezia, Other Musculoskeletal: No: other, neck pain, shoulder pain, arm pain, back pain, hand pain, leg pain, foot pain Allergies: Coded Allergies: ciprofloxacin (Verified Allergy, Unknown, 11/14/18) sulfamethoxazole (Verified Allergy, Unknown, 03/25/19) trimethoprim (Verified Allergy, Unknown, 03/25/19) Scheduled Apixaban (Eliquis), 5 MG PO BID, (Reported) Ascorbic Acid (Vitamin C), 1 CAP PO QD Aspirin (Aspirin Ec), 1 TAB PO DAILY, (Reported) Buspirone Hcl (Buspirone Hcl), 1 TAB PO BID, (Reported) Chlorthalidone (Chlorthalidone), 1 TAB PO DAILY, (Reported) Duloxetine Hcl (Cymbalta), 3 CAP PO DAILY, (Reported) Esomeprazole Magnesium (Nexium), 1 CAP PO DAILY, (Reported) Fluticasone Propionate (Allergy Relief), 2 SPR NA QD, (Reported) Isosorbide Mononitrate (Isosorbide Mononitrate Er), 1 TAB PO DAILY, (Reported) Loratadine (Loratadine), 1 TAB PO QD, (Reported) Losartan Potassium (Losartan Potassium), 1 TAB PO DAILY, (Reported) Montelukast Sodium (Montelukast Sodium), 1 TAB PO DAILY, (Reported) Potassium Chloride (Klor-Con 10), 10 MEQ PO DAILY24 Pregabalin (Lyrica), 1 CAP PO BID, (Reported) Vitamin D3/Menaquinone 7 (D3 + K2 Dots 1,000 Units Tab), 1 TAB PO QD, (Reported) Zinc Sulfate (Zinc Sulfate), 220 MG PO DAILY Scheduled PRN Tramadol Hcl (Tramadol Hcl), 1 TAB PO Q8HR PRN for PAIN 1 - 3, (Reported) Objective Vitals and I/O Vital Sign - Last 24 Hours 09/27/20 09/27/20 09/27/20 09/27/20 11:40 16:40 19:31 19:52 Temp 98.3 97.4 97.8 Pulse 65 63 65 Resp 18 18 18 B/P (MAP) 144/74 (97) 119/61 (80) 140/83 (102) Pulse Ox 96 92 96 O2 Delivery Room Air 09/28/20 09/28/20 09/28/20 09/28/20 00:12 00:31 03:43 08:02 Temp 98.1 98.1 98.3 Pulse 70 67 66 Resp 18 18 18 B/P (MAP) 114/70 (85) 129/83 (98) 128/74 (92) Pulse Ox 92 93 97 O2 Delivery Room Air Room Air Nasal [place] O2 Flow Rate 2.00 09/28/20 09/28/20 09/28/20 09/28/20 08:18 08:42 09:21 09:58 Pulse 66 Resp 18 18 B/P (MAP) 128/74 Pulse Ox 98 98 O2 Delivery Nasal Cannula Nasal Cannula O2 Flow Rate 2.00 09/28/20 09:59 B/P (MAP) 128/74 Intake and Output 09/28/20 07:00 Intake Total 636 ml Output Total 350 ml Balance 286 ml General: Alert, Oriented X3, Cooperative, No acute distress HEENT: Atraumatic, PERRLA, EOMI, Mucous membr. moist/pink Neck: Supple, No JVD, No thyromegaly Lungs: Clear to auscultation, Normal air movement Heart: Regular rate, Normal S1, Normal S2 Abdomen: Normal bowel sounds, Soft, No tenderness Extremities: No clubbing, No cyanosis, No edema, Normal pulses, No tenderness/swelling Neuro: Normal speech Psych/Mental Status: Mental status NL, Mood NL All Results(Lab/Rad) Laboratory Tests Test 09/27/20 11:38 09/27/20 16:10 09/27/20 17:23 09/27/20 18:30 Bedside Glucose 156 147 110 Troponin I < 0.02 ng/mL Test 09/27/20 21:15 09/28/20 04:30 09/28/20 05:47 09/28/20 07:45 Bedside Glucose 134 130 135 Sodium Level 142 mmol/L Potassium Level 3.1 mmol/L Chloride Level 103.0 mmol/L Carbon Dioxide Level 31.2 mmol/L Glucose Level 133 mg/dL Blood Urea Nitrogen 12 mg/dL Creatinine 1.10 mg/dL Calcium Level 8.8 mg/dL Anion Gap 10.9 Estimated GFR () 58.9 Est GFR (CKD-EPI)(Non-Afr [place]ovan) 48.7 BUN/Creatinine Ratio 10.0 Magnesium Level 1.7 mg/dL Current Medications Medications (Trade) Dose Ordered Sig/Keith Route PRN Reason Start Time Stop Time Status Last Admin Dose Admin Morphine Sulfate (Morphine Sulfate) 2 mg STK-MED ONCE .ROUTE 09/26/20 15:10 09/26/20 15:11 DC Sodium Chloride 1,000 ml @ ud STK-MED ONCE .ROUTE 09/26/20 15:12 09/26/20 15:12 DC Ondansetron HCl (Zofran) 4 mg STK-MED ONCE .ROUTE 09/26/20 15:12 09/26/20 15:12 DC Morphine Sulfate (Morphine Sulfate) 2 mg STAT STAT IV 09/26/20 15:11 09/26/20 15:13 DC 09/26/20 15:15 Ondansetron HCl (Zofran) 4 mg STAT STAT IV 09/26/20 15:11 09/26/20 15:13 DC 09/26/20 15:16 Sodium Chloride 1,000 ml @ 100 mls/hr Q10H STAT IV 09/26/20 15:11 09/27/20 01:10 DC 09/26/20 15:16 Insulin Human Lispro (Humalog) 3 unit OT ONCE SQ 09/26/20 19:00 09/26/20 20:53 DC Aspirin (Aspirin Ec) 162 mg DAILY PO 09/27/20 09:00 09/26/20 19:04 DC Nitroglycerin (Nitro-Dur 0.2mg Patch) 1 each STAT STAT TD 09/26/20 18:39 09/26/20 20:55 DC 09/26/20 21:09 Buspirone HCl (Buspar) 10 mg BID PO 09/26/20 21:00 10/26/20 20:59 09/28/20 09:57 Chlorthalidone (Chlorthalidone) 25 mg DAILY PO 09/27/20 09:00 10/27/20 08:59 09/28/20 09:59 Duloxetine HCl (Cymbalta) 90 mg DAILY PO 09/27/20 09:00 10/27/20 08:59 09/28/20 09:58 Pantoprazole Sodium (Protonix) 40 mg DAILY PO 09/27/20 09:00 10/27/20 08:59 09/28/20 09:57 Isosorbide Mononitrate (Imdur) 30 mg DAILY PO 09/27/20 09:00 10/27/20 08:59 09/28/20 09:58 Losartan Potassium (Cozaar) 50 mg DAILY PO 09/27/20 09:00 10/27/20 08:59 09/28/20 09:59 Montelukast Sodium (Singulair) 10 mg DAILY PO 09/27/20 09:00 10/27/20 08:59 09/28/20 09:57 Potassium Chloride (Klor-Con 10) 10 meq DAILY24 PO 09/26/20 19:00 10/26/20 18:59 09/27/20 10:15 Tramadol HCl (Ultram) 50 mg Q8HR PRN PO PAIN 1 - 3 09/26/20 19:00 10/26/20 18:59 09/28/20 02:41 Aspirin (Aspirin Ec) 81 mg DAILY PO 09/27/20 09:00 10/27/20 08:59 09/28/20 09:58 Pregabalin (Lyrica) 50 mg BID PO 09/26/20 21:00 10/26/20 20:59 09/28/20 09:57 Nitroglycerin (Nitro-Dur 0.4mg Patch) 1 each STK-MED ONCE TD 09/26/20 21:03 09/26/20 21:03 DC Nitroglycerin (Nitro-Dur 0.2mg Patch) 1 each STK-MED ONCE TD 09/26/20 21:09 09/26/20 21:09 DC Rosuvastatin Calcium (Crestor) 20 mg HS PO 09/27/20 21:00 10/27/20 20:59 09/27/20 21:07 Potassium Bicarbonate (Effer-K 10 Meq Tablet Eff) 40 meq Q6H PO 09/27/20 15:00 09/27/20 21:01 DC 09/27/20 21:07 Chlorhexidine Gluconate (Peridex) 30 ml Q12H MM 09/27/20 15:30 10/27/20 15:29 09/28/20 02:42 Amoxicillin/ Clavulanate Potassium (Augmentin 875-125 Tablet) 1 each BID PO 09/27/20 15:30 10/27/20 15:29 09/28/20 09:58 Lidocaine HCl (Lidocaine HCl Viscous) 15 ml TID PRN MM PAIN 4 - 6 09/27/20 15:30 10/27/20 15:29 Acetaminophen (Tylenol) 650 mg Q4H PRN PO PAIN 1 - 3 09/27/20 18:00 10/27/20 17:59 09/28/20 05:54 Pantoprazole Sodium (Protonix Iv) 40 mg STAT STAT IV 09/27/20 17:49 09/27/20 20:20 DC 09/27/20 18:15 Rosuvastatin Calcium (Crestor) 20 mg STK-MED ONCE PO 09/27/20 21:05 09/27/20 21:05 DC Potassium Bicarbonate (Effer-K 10 Meq Tablet Eff) 10 meq STK-MED ONCE .ROUTE 09/27/20 22:44 09/27/20 22:45 DC Assessment/Plan Assessment/Plan Assessment/Plan 1. Chest pain, rule out acute coronary syndrome. 2. Paroxysmal atrial fibrillation -- currently in normal sinus rhythm. 3. The patient reports nonobstructive coronary artery disease by left heart catheterization done 2 years ago. 4. Chronic congestive heart failure -- not active at this time. 5. Hypothyroidism. 6. Type 2 diabetes mellitus. 7. Hypertension. 8. Dyslipidemia. 9. Obstructive sleep apnea on CPAP therapy. 10. Fibromyalgia. 11. Obesity. Plan LVEF 55% on echo No evidence of wall motion abnormalities Troponins negative X 5 No evidence of myocardial ischemia on ECG No angina Stable from a cardiac standpoint for discharge with outpt follow up with me in 3 weeks PERRY BERUMEN DO September 28, 2020 11:06
[2020-09-28 12:03] VITALS: BP 122/87
[2020-09-28] MEDS ORDERED: AMOX1TAB63 PO (14:57)
[2020-09-28] MEDS ORDERED: CHLO118L MM (14:57)
[2020-09-28] MEDS ORDERED: PREG50CA PO (14:57)
[2020-09-28] MEDS ORDERED: ROSU20TA2 PO (14:57)
--- NOTE | 2020-09-28 15:04 | PRM.DC ---
Subjective Subjective Date of Discharge: September 28, 2020 Time of Request to Discharge: 14:58 Subjective Feeling better dental pain has improved,No chest pain no shortness of breath tolerating p.o. intake well had bowel movement no abdominal symptoms Patient History: Unknown 34 MOTHER 35 FATHER Exam Vital Signs Vital Signs Date Time Temp Pulse Resp B/P (MAP) Pulse Ox O2 Delivery O2 Flow Rate FiO2 09/28/20 12:03 97.8 77 18 122/87 (99) 95 09/28/20 08:42 Nasal Cannula 09/28/20 08:18 2.00 General: Awake alert oriented not in distress HEENT: Anicteric sclera pupil react light mucous membrane moist neck supple Lungs: Air entry symmetrical no added sound heard no wheezes or rales heard Heart: S1-S2 heard no murmur gallop note Abdomen: Obese nontender bowel sounds present no guarding no rigidity no organomegaly or masses felt Extremities: Trace edema no calf tenderness moves all 4 limbs 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: Awake alert oriented cranial nerves II through XII grossly intact muscle power 5/5 in all 4 limbs Psych/Mental: Normal mood normal affect Laboratory Tests Test 09/26/20 14:44 09/26/20 14:45 09/26/20 17:23 09/26/20 20:25 Prothrombin Time 11.8 SEC (9.6-12.0) Prothrombin Time INR (Non-Therap) 1.1 Activated Partial Thromboplast Time 27.5 SEC (24.67-30.72) D-Dimer 0.43 mg/L (0.19-0.49) Sodium Level 139 mmol/L (132-145) Potassium Level 3.1 mmol/L (3.6-5.2) Chloride Level 103.0 mmol/L (96-109) Carbon Dioxide Level 27.4 mmol/L (20.0-32) Anion Gap 11.7 Blood Urea Nitrogen 21 mg/dL (7-18) Creatinine 1.09 mg/dL (0.59-1.40) Estimated GFR () 59.5 (>/=60) Est GFR (CKD-EPI)(Non-Afr French) 49.2 (>/=60) BUN/Creatinine Ratio 19.0 Glucose Level 123 mg/dL (70-110) Calcium Level 8.6 mg/dL (8.4-10.5) Total Bilirubin 0.6 mg/dL (0.2-1.0) Aspartate Amino Transf (AST/SGOT) 23 U/L (0-35) Alanine Aminotransferase (ALT/SGPT) 23 U/L (12-78) Alkaline Phosphatase 90 U/L (50-136) Total Creatine Kinase 67 U/L (26-192) Creatine Kinase MB 0.7 ng/mL (0.5-3.6) Troponin I < 0.02 ng/mL (0.00-0.05) < 0.02 ng/mL (0.00-0.05) Pro-B-Type Natriuretic Peptide 66 pg/mL (0-125) Total Protein 7.3 g/dL (6.4-8.2) Albumin 3.3 g/dL (3.4-5.0) Globulin 4.0 Albumin/Globulin Ratio 0.825 White Blood Count 7.5 10^3/uL (4.5-11.0) 6.3 10^3/uL (4.5-11.0) Red Blood Count 4.51 10^6/uL (4.00-5.20) 4.08 10^6/uL (4.00-5.20) Hemoglobin 12.9 g/dL (12.0-15.0) 11.9 g/dL (12.0-15.0) Hematocrit 40.5 % (36.0-46.0) 37.4 % (36.0-46.0) Mean Corpuscular Volume 89.8 fL (78-100) 91.7 fL (78-100) Mean Corpuscular Hemoglobin 28.6 pg (26-34) 29.2 pg (26-34) Mean Corpuscular Hemoglobin Concent 31.9 g/dL (33-36.5) 31.8 g/dL (33-36.5) Red Cell Distribution Width 14.0 % (11.5-14.5) 14.1 % (11.5-14.5) Platelet Count 293 10^3/uL (150-400) 251 10^3/uL (150-400) Mean Platelet Volume 9.7 fL (7.8-11.0) 9.9 fL (7.8-11.0) Neutrophils (%) (Auto) 59.7 % (41.0-85.0) 60.6 % (41.0-85.0) Lymphocytes (%) (Auto) 29.1 % (24.0-44.0) 28.7 % (24.0-44.0) Monocytes (%) (Auto) 6.4 % (5.0-12.0) 5.4 % (5.0-12.0) Neutrophils # (Auto) 4.5 10^3/uL (1.8-7.7) 3.8 10^3/uL (1.8-7.7) Lymphocytes # (Auto) 2.18 10^3/uL1 (1.0-4.8) 1.80 10^3/uL1 (1.0-4.8) Monocytes # (Auto) 0.5 10^3/uL (0.3-0.8) 0.3 10^3/uL (0.3-0.8) Absolute Immature Granulocyte (auto 0.01 10^3 u/L (0-2) 0.01 10^3 u/L (0-2) Absolute Eosinophils (auto) 0.3 10^3/uL (0.0-0.2) 0.3 10^3/uL (0.0-0.2) Immature Granulocytes % 0.10 % (0.00-0.50) 0.20 % (0.00-0.50) Eosinophils % 4.3 % (0.0-5.0) 4.8 % (0.0-5.0) Basophils % 0.4 % (0.0-0.2) 0.3 % (0.0-0.2) Basophils # 0.0 10^3/uL (0.0-0.1) 0.0 10^3/uL (0.0-0.1) Bedside Glucose 102 (70 - 110) Test 09/26/20 20:42 09/27/20 00:00 09/27/20 05:02 09/27/20 11:38 Bedside Glucose 136 (70 - 110) 156 (70 - 110) Troponin I < 0.02 ng/mL (0.00-0.05) < 0.02 ng/mL (0.00-0.05) Sodium Level 145 mmol/L (132-145) Potassium Level 2.9 mmol/L (3.6-5.2) Chloride Level 106.0 mmol/L (96-109) Carbon Dioxide Level 27.7 mmol/L (20.0-32) Anion Gap 14.2 Blood Urea Nitrogen 18 mg/dL (7-18) Creatinine 0.99 mg/dL (0.59-1.40) Estimated GFR () 66.5 (>/=60) Est GFR (CKD-EPI)(Non-Afr French) 55.0 (>/=60) BUN/Creatinine Ratio 18.0 Glucose Level 121 mg/dL (70-110) Hemoglobin A1c 9.2 % (0-5.7) Calcium Level 8.3 mg/dL (8.4-10.5) Phosphorus Level 3.5 mg/dL (2.5-4.9) Magnesium Level 1.9 mg/dL (1.8-2.4) Total Bilirubin 0.5 mg/dL (0.2-1.0) Aspartate Amino Transf (AST/SGOT) 22 U/L (0-35) Alanine Aminotransferase (ALT/SGPT) 19 U/L (12-78) Alkaline Phosphatase 82 U/L (50-136) Total Protein 6.4 g/dL (6.4-8.2) Albumin 2.8 g/dL (3.4-5.0) Globulin 3.6 Albumin/Globulin Ratio 0.777 Triglycerides Level 176 mg/dL (20-200) Cholesterol Level 183 mg/dL (120-240) LDL Cholesterol, Calculated 105.8 VLDL Cholesterol, Calculated 35.2 HDL Cholesterol 42 mg/dL (32-96) Cholesterol Ratio (LDL/HDL) 2.5 Cholesterol/HDL Ratio 4.001738 Thyroid Stimulating Hormone (TSH) 4.138 mIU/mL (0.358-3.740) Test 09/27/20 16:10 09/27/20 17:23 09/27/20 18:30 09/27/20 21:15 Bedside Glucose 147 (70 - 110) 110 (70 - 110) 134 (70 - 110) Troponin I < 0.02 ng/mL (0.00-0.05) Test 09/28/20 04:30 09/28/20 05:47 09/28/20 07:45 09/28/20 11:41 Sodium Level 142 mmol/L (132-145) Potassium Level 3.1 mmol/L (3.6-5.2) Chloride Level 103.0 mmol/L (96-109) Carbon Dioxide Level 31.2 mmol/L (20.0-32) Glucose Level 133 mg/dL (70-110) Blood Urea Nitrogen 12 mg/dL (7-18) Creatinine 1.10 mg/dL (0.59-1.40) Calcium Level 8.8 mg/dL (8.4-10.5) Anion Gap 10.9 Estimated GFR () 58.9 (>/=60) Est GFR (CKD-EPI)(Non-Afr French) 48.7 (>/=60) BUN/Creatinine Ratio 10.0 Magnesium Level 1.7 mg/dL (1.8-2.4) Bedside Glucose 130 (70 - 110) 135 (70 - 110) 158 (70 - 110) Current Medications Medications (Trade) Dose Ordered Sig/Keith Route PRN Reason Start Time Stop Time Status Last Admin Dose Admin Morphine Sulfate (Morphine Sulfate) 2 mg STK-MED ONCE .ROUTE 09/26/20 15:10 09/26/20 15:11 DC Sodium Chloride 1,000 ml @ ud STK-MED ONCE .ROUTE 09/26/20 15:12 09/26/20 15:12 DC Ondansetron HCl (Zofran) 4 mg STK-MED ONCE .ROUTE 09/26/20 15:12 09/26/20 15:12 DC Morphine Sulfate (Morphine Sulfate) 2 mg STAT STAT IV 09/26/20 15:11 09/26/20 15:13 DC 09/26/20 15:15 Ondansetron HCl (Zofran) 4 mg STAT STAT IV 09/26/20 15:11 09/26/20 15:13 DC 09/26/20 15:16 Sodium Chloride 1,000 ml @ 100 mls/hr Q10H STAT IV 09/26/20 15:11 09/27/20 01:10 DC 09/26/20 15:16 Insulin Human Lispro (Humalog) 3 unit OT ONCE SQ 09/26/20 19:00 09/26/20 20:53 DC Aspirin (Aspirin Ec) 162 mg DAILY PO 09/27/20 09:00 09/26/20 19:04 DC Nitroglycerin (Nitro-Dur 0.2mg Patch) 1 each STAT STAT TD 09/26/20 18:39 09/26/20 20:55 DC 09/26/20 21:09 Buspirone HCl (Buspar) 10 mg BID PO 09/26/20 21:00 10/26/20 20:59 09/28/20 09:57 Chlorthalidone (Chlorthalidone) 25 mg DAILY PO 09/27/20 09:00 10/27/20 08:59 09/28/20 09:59 Duloxetine HCl (Cymbalta) 90 mg DAILY PO 09/27/20 09:00 10/27/20 08:59 09/28/20 09:58 Pantoprazole Sodium (Protonix) 40 mg DAILY PO 09/27/20 09:00 10/27/20 08:59 09/28/20 09:57 Isosorbide Mononitrate (Imdur) 30 mg DAILY PO 09/27/20 09:00 10/27/20 08:59 09/28/20 09:58 Losartan Potassium (Cozaar) 50 mg DAILY PO 09/27/20 09:00 10/27/20 08:59 09/28/20 09:59 Montelukast Sodium (Singulair) 10 mg DAILY PO 09/27/20 09:00 10/27/20 08:59 09/28/20 09:57 Potassium Chloride (Klor-Con 10) 10 meq DAILY24 PO 09/26/20 19:00 10/26/20 18:59 09/27/20 10:15 Tramadol HCl (Ultram) 50 mg Q8HR PRN PO PAIN 1 - 3 09/26/20 19:00 10/26/20 18:59 09/28/20 02:41 Aspirin (Aspirin Ec) 81 mg DAILY PO 09/27/20 09:00 10/27/20 08:59 09/28/20 09:58 Pregabalin (Lyrica) 50 mg BID PO 09/26/20 21:00 10/26/20 20:59 09/28/20 09:57 Nitroglycerin (Nitro-Dur 0.4mg Patch) 1 each STK-MED ONCE TD 09/26/20 21:03 09/26/20 21:03 DC Nitroglycerin (Nitro-Dur 0.2mg Patch) 1 each STK-MED ONCE TD 09/26/20 21:09 09/26/20 21:09 DC Rosuvastatin Calcium (Crestor) 20 mg HS PO 09/27/20 21:00 10/27/20 20:59 09/27/20 21:07 Potassium Bicarbonate (Effer-K 10 Meq Tablet Eff) 40 meq Q6H PO 09/27/20 15:00 09/27/20 21:01 DC 09/27/20 21:07 Chlorhexidine Gluconate (Peridex) 30 ml Q12H MM 09/27/20 15:30 10/27/20 15:29 09/28/20 02:42 Amoxicillin/ Clavulanate Potassium (Augmentin 875-125 Tablet) 1 each BID PO 09/27/20 15:30 10/27/20 15:29 09/28/20 09:58 Lidocaine HCl (Lidocaine HCl Viscous) 15 ml TID PRN MM PAIN 4 - 6 09/27/20 15:30 10/27/20 15:29 Acetaminophen (Tylenol) 650 mg Q4H PRN PO PAIN 1 - 3 09/27/20 18:00 10/27/20 17:59 09/28/20 05:54 Pantoprazole Sodium (Protonix Iv) 40 mg STAT STAT IV 09/27/20 17:49 09/27/20 20:20 DC 09/27/20 18:15 Rosuvastatin Calcium (Crestor) 20 mg STK-MED ONCE PO 09/27/20 21:05 09/27/20 21:05 DC Potassium Bicarbonate (Effer-K 10 Meq Tablet Eff) 10 meq STK-MED ONCE .ROUTE 09/27/20 22:44 09/27/20 22:45 DC VTE VTE Risk Total Score: 2 VTE Risk Score VTE Risk: Score 0-1 = Low Risk (Aggressive mobilization; early ambulation; no VTE prophylaxis required) Score 2: Moderate Risk (Intermittent/Pneumatic Compression Device OR Lovenox/Heparin/Coumadin) Score 3-4: High Risk (Intermittent/Pneumatic Compression Device AND Lovenox/Heparin/Coumadin) Score > or =5: Highest Risk (Intermittent/Pneumatic Compression Device AND Lovenox/Heparin/Coumadin) Antico:Hep/LMWH/Coum/Xarelto: Yes Objective Vitals and I/O Vital Sign - Last 24 Hours 09/27/20 09/27/20 09/27/20 5/25/21 16:40 19:31 19:52 00:12 Temp 97.4 97.8 98.1 Pulse 63 65 70 Resp 18 18 18 B/P (MAP) 119/61 (80) 140/83 (102) 114/70 (85) Pulse Ox 92 96 92 O2 Delivery Room Air Room Air 09/28/20 09/28/20 09/28/20 09/28/20 00:31 03:43 08:02 08:18 Temp 98.1 98.3 Pulse 67 66 Resp 18 18 B/P (MAP) 129/83 (98) 128/74 (92) Pulse Ox 93 97 O2 Delivery Room Air Nasal Canula Nasal Cannula O2 Flow Rate 2.00 2.00 09/28/20 09/28/20 09/28/20 09/28/20 08:42 09:21 09:58 09:59 Pulse 66 Resp 18 18 B/P (MAP) 128/74 128/74 Pulse Ox 98 98 O2 Delivery Nasal Cannula 09/28/20 12:03 Temp 97.8 Pulse 77 Resp 18 B/P (MAP) 122/87 (99) Pulse Ox 95 Intake and Output 09/28/20 07:00 Intake Total 636 ml Output Total 350 ml Balance 286 ml General: Alert, Oriented X3, Cooperative, No acute distress HEENT: Atraumatic, PERRLA, EOMI, Mucous membr. moist/pink Neck: Supple, No JVD, No thyromegaly Lungs: Clear to auscultation, Normal air movement Heart: Regular rate, Normal S1, Normal S2 Abdomen: Normal bowel sounds, Soft, No tenderness Extremities: No clubbing, No cyanosis, No edema, Normal pulses, No tenderness /swelling Neuro: Normal gait, Normal speech, Strength at 5/5 X4 ext Psych/Mental Status: Mental status NL, Mood NL All Results(Lab/Rad) Laboratory Tests Test 09/27/20 11:38 09/27/20 16:10 09/27/20 17:23 09/27/20 18:30 Bedside Glucose 156 147 110 Troponin I < 0.02 ng/mL Test 09/27/20 21:15 09/28/20 04:30 09/28/20 05:47 09/28/20 07:45 Bedside Glucose 134 130 135 Sodium Level 142 mmol/L Potassium Level 3.1 mmol/L Chloride Level 103.0 mmol/L Carbon Dioxide Level 31.2 mmol/L Glucose Level 133 mg/dL Blood Urea Nitrogen 12 mg/dL Creatinine 1.10 mg/dL Calcium Level 8.8 mg/dL Anion Gap 10.9 Estimated GFR () 58.9 Est GFR (CKD-EPI)(Non-Afr French) 48.7 BUN/Creatinine Ratio 10.0 Magnesium Level 1.7 mg/dL Current Medications Medications (Trade) Dose Ordered Sig/Keith Route PRN Reason Start Time Stop Time Status Last Admin Dose Admin Morphine Sulfate (Morphine Sulfate) 2 mg STK-MED ONCE .ROUTE 09/26/20 15:10 09/26/20 15:11 DC Sodium Chloride 1,000 ml @ ud STK-MED ONCE .ROUTE 09/26/20 15:12 09/26/20 15:12 DC Ondansetron HCl (Zofran) 4 mg STK-MED ONCE .ROUTE 09/26/20 15:12 09/26/20 15:12 DC Morphine Sulfate (Morphine Sulfate) 2 mg STAT STAT IV 09/26/20 15:11 09/26/20 15:13 DC 09/26/20 15:15 Ondansetron HCl (Zofran) 4 mg STAT STAT IV 09/26/20 15:11 09/26/20 15:13 DC 09/26/20 15:16 Sodium Chloride 1,000 ml @ 100 mls/hr Q10H STAT IV 09/26/20 15:11 09/27/20 01:10 DC 09/26/20 15:16 Insulin Human Lispro (Humalog) 3 unit OT ONCE SQ 09/26/20 19:00 09/26/20 20:53 DC Aspirin (Aspirin Ec) 162 mg DAILY PO 09/27/20 09:00 09/26/20 19:04 DC Nitroglycerin (Nitro-Dur 0.2mg Patch) 1 each STAT STAT TD 09/26/20 18:39 09/26/20 20:55 DC 09/26/20 21:09 Buspirone HCl (Buspar) 10 mg BID PO 09/26/20 21:00 10/26/20 20:59 09/28/20 09:57 Chlorthalidone (Chlorthalidone) 25 mg DAILY PO 09/27/20 09:00 10/27/20 08:59 09/28/20 09:59 Duloxetine HCl (Cymbalta) 90 mg DAILY PO 09/27/20 09:00 10/27/20 08:59 09/28/20 09:58 Pantoprazole Sodium (Protonix) 40 mg DAILY PO 09/27/20 09:00 10/27/20 08:59 09/28/20 09:57 Isosorbide Mononitrate (Imdur) 30 mg DAILY PO 09/27/20 09:00 10/27/20 08:59 09/28/20 09:58 Losartan Potassium (Cozaar) 50 mg DAILY PO 09/27/20 09:00 10/27/20 08:59 09/28/20 09:59 Montelukast Sodium (Singulair) 10 mg DAILY PO 09/27/20 09:00 10/27/20 08:59 09/28/20 09:57 Potassium Chloride (Klor-Con 10) 10 meq DAILY24 PO 09/26/20 19:00 10/26/20 18:59 09/27/20 10:15 Tramadol HCl (Ultram) 50 mg Q8HR PRN PO PAIN 1 - 3 09/26/20 19:00 10/26/20 18:59 09/28/20 02:41 Aspirin (Aspirin Ec) 81 mg DAILY PO 09/27/20 09:00 10/27/20 08:59 09/28/20 09:58 Pregabalin (Lyrica) 50 mg BID PO 09/26/20 21:00 10/26/20 20:59 09/28/20 09:57 Nitroglycerin (Nitro-Dur 0.4mg Patch) 1 each STK-MED ONCE TD 09/26/20 21:03 09/26/20 21:03 DC Nitroglycerin (Nitro-Dur 0.2mg Patch) 1 each STK-MED ONCE TD 09/26/20 21:09 09/26/20 21:09 DC Rosuvastatin Calcium (Crestor) 20 mg HS PO 09/27/20 21:00 10/27/20 20:59 09/27/20 21:07 Potassium Bicarbonate (Effer-K 10 Meq Tablet Eff) 40 meq Q6H PO 09/27/20 15:00 09/27/20 21:01 DC 09/27/20 21:07 Chlorhexidine Gluconate (Peridex) 30 ml Q12H MM 09/27/20 15:30 10/27/20 15:29 09/28/20 02:42 Amoxicillin/ Clavulanate Potassium (Augmentin 875-125 Tablet) 1 each BID PO 09/27/20 15:30 10/27/20 15:29 09/28/20 09:58 Lidocaine HCl (Lidocaine HCl Viscous) 15 ml TID PRN MM PAIN 4 - 6 09/27/20 15:30 10/27/20 15:29 Acetaminophen (Tylenol) 650 mg Q4H PRN PO PAIN 1 - 3 09/27/20 18:00 10/27/20 17:59 09/28/20 05:54 Pantoprazole Sodium (Protonix Iv) 40 mg STAT STAT IV 09/27/20 17:49 09/27/20 20:20 DC 09/27/20 18:15 Rosuvastatin Calcium (Crestor) 20 mg STK-MED ONCE PO 09/27/20 21:05 09/27/20 21:05 DC Potassium Bicarbonate (Effer-K 10 Meq Tablet Eff) 10 meq STK-MED ONCE .ROUTE 09/27/20 22:44 09/27/20 22:45 DC Medication Reconciliation Scheduled Amoxicillin/Potassium Clav (Augmentin 875-125 Tablet), 1 EACH PO BID Apixaban (Eliquis), 5 MG PO BID, (Reported) Ascorbic Acid (Vitamin C), 1 CAP PO QD Aspirin (Aspirin Ec), 1 TAB PO DAILY, (Reported) Buspirone Hcl (Buspirone Hcl), 1 TAB PO BID, (Reported) Chlorhexidine Gluconate (Hibiclens), 30 ML MM Q12H Chlorthalidone (Chlorthalidone), 1 TAB PO DAILY, (Reported) Duloxetine Hcl (Cymbalta), 3 CAP PO DAILY, (Reported) Esomeprazole Magnesium (Nexium), 1 CAP PO DAILY, (Reported) Fluticasone Propionate (Allergy Relief), 2 SPR NA QD, (Reported) Isosorbide Mononitrate (Isosorbide Mononitrate Er), 1 TAB PO DAILY, (Reported) Loratadine (Loratadine), 1 TAB PO QD, (Reported) Losartan Potassium (Losartan Potassium), 1 TAB PO DAILY, (Reported) Montelukast Sodium (Montelukast Sodium), 1 TAB PO DAILY, (Reported) Potassium Chloride (Klor-Con 10), 10 MEQ PO DAILY24 Pregabalin (Lyrica), 1 CAP PO BID, (Reported) Pregabalin (Lyrica), 50 MG PO BID Rosuvastatin 20MG (Crestor 20MG), 20 MG PO HS Vitamin D3/Menaquinone 7 (D3 + K2 Dots 1,000 Units Tab), 1 TAB PO QD, (Reported) Zinc Sulfate (Zinc Sulfate), 220 MG PO DAILY Scheduled PRN Tramadol Hcl (Tramadol Hcl), 1 TAB PO Q8HR PRN for PAIN 1 - 3, (Reported) Plan Plan My Orders - LUCILLE TOMPKINS MD Procedure Category Date Status Time Chlorhexidine PHA 09/27/20 In Process Gluconate (Peridex) 15:30 Amoxicillin/Potassium PHA 09/27/20 In Process Clav (Augmentin 87 15:30 Lidocaine Hcl PHA 09/27/20 In Process (Lidocaine Hcl 15:30 Bedside Glucose LAB 09/27/20 Complete 16:10 Bedside Glucose LAB 09/27/20 Complete 17:23 Acetaminophen PHA 09/27/20 In Process (Tylenol) 18:00 Rosuvastatin Calcium PHA 09/27/20 Complete (Crestor) 21:05 Bedside Glucose LAB 09/27/20 Complete 21:15 Potassium PHA 09/27/20 Complete Bicarbonate/Cit Ac 22:44 Bedside Glucose LAB 09/28/20 Complete 05:47 Bedside Glucose LAB 09/28/20 Complete 07:45 Rt O2 Per Hour MARY 09/28/20 Transmitted 08:29 Bedside Glucose LAB 09/28/20 Complete 11:41 Discharge DISCHARGE 09/28/20 Transmitted 14:49 ASSESSMENT 1. Atypical chest pain with multiple risk factor resolved, troponin remain negative 2. Hypertension 3. Diabetes mellitus type 2 4. Dyslipidemia 5. Paroxysmal atrial fibrillation 6. Hypothyroidism 7. Polyarthritis s osteoarthritis 8. History of fibromyalgia 9. Sleep apnea use home CPAP 10. Obesity BMI 42.6 11. Hypokalemia 12. Dental caries with gingivitis Echocardiogram shows ejection fraction of 55% no evidence of wall motion abnormality troponins were negative no myocardial infarction or ischemia on EKG angina resolved patient was cleared by fingerprinter to follow-up In 3 weeks Time with fingerprinter and advised to follow-up as outpatient with the dentist for gingivitis and dental caries evaluation and treatment follow-up with PCP in 1 week time LUCILLE TOMPKINS MD September 28, 2020 15:04
--- NOTE | 2020-09-28 15:30 | NUR ---
DISCHARGE DISCHARGE INSTRUCTIONS GIVEN AND QUESTIONS ANSWERED, VOICED UNDERSTANDING
[2020-09-28 15:37] VITALS: BP 131/70
--- NOTE | 2020-09-28 15:45 | NUR ---
DISCHARGED DISCHARGED VIA W/C TO PRIVATE VEHICLE IN APPARENT STABLE CONDITION
== END 2020-09-28 16:06 | disposition home or self-care (01) ==
LOC: ER 14:35 → MS 15:18
PROVIDERS: ADMIT Internal Medicine; ATTEND Internal Medicine
DX: R07.89 Other chest pain (principal); I48.0 Paroxysmal atrial fibrillation; I11.0 Hypertensive heart disease with heart failure; I50.9 Heart failure, unspecified; E11.9 Type 2 diabetes mellitus without complications; E78.5 Hyperlipidemia, unspecified; E03.9 Hypothyroidism, unspecified; M13.0 Polyarthritis, unspecified; G47.33 Obstructive sleep apnea (adult) (pediatric); E66.9 Obesity, unspecified; M79.7 Fibromyalgia; K21.9 Gastro-esophageal reflux disease without esophagitis; E78.00 Pure hypercholesterolemia, unspecified; E87.6 Hypokalemia; K02.9 Dental caries, unspecified; K05.10 Chronic gingivitis, plaque induced; I25.10 Atherosclerotic heart disease of native coronary artery without angina pectoris; I44.4 Left anterior fascicular block; Z68.41 Body mass index [BMI] 40.0-44.9, adult; Z79.82 Long term (current) use of aspirin; Z79.899 Other long term (current) drug therapy; Z79.01 Long term (current) use of anticoagulants; Z90.710 Acquired absence of both cervix and uterus; Z98.84 Bariatric surgery status
CPT/HCPCS: 36415 ×3; 71045; 80048; 80053 ×2; 80061; 82550; 82553; 82948 ×3; 83036; 83735 ×2; 83880; 84100; 84443; 84484 ×2; 85025; 85379; 85610; 85730; 93005 ×2; 93306; 96374; 96375 ×2; 99285; G0378 ×4; J2405; J3490 ×4; J7030; C9399; J8499

== ENCOUNTER → 2020-09-29 | Outpatient (CLI) | payer MEDICARE, MEDICAID ==
[~2020-09-29] MED LIST changes: +AMOX1TAB63 PO; +CHLO118L MM; +PREG50CA PO; +ROSU20TA2 PO
== END | disposition home or self-care (01) ==
LOC: NPLAB 16:59
PROVIDERS: ATTEND Nurse Practitioner Family
DX: R35.0 Frequency of micturition (principal)
CPT/HCPCS: 87086

== ENCOUNTER → 2020-10-26 | Outpatient (CLI) | payer MEDICARE, MEDICAID ==
[~2020-10-26] MED LIST changes: +LEXISCAN IV ONE
--- NOTE | 2020-10-26 23:50 | STRESS ---
DATE OF SERVICE: 10/26/2020 DICTATOR NAME: PERRY BERUMEN DO INDICATION: Chest pain. FINDINGS: Baseline EKG shows normal sinus rhythm with nonspecific ST-T wave changes and left anterior fascicular block as well as an incomplete right bundle branch block. Stress EKG shows normal sinus rhythm, unchanged from baseline. At the end of recovery, EKG shows normal sinus rhythm, unchanged from baseline. Baseline blood pressure is 125/81, and remained the same during stress. At the end of recovery, the blood pressure is 120/78. Baseline heart rate is 64 beats per minute and avtar to 67 beats per minute during stress. At the end of recovery, the heart rate was 73 beats per minute. Blood pressure and heart rate were appropriate for stress. There were no significant symptoms noted during stress. There were no arrhythmias noted during stress. EKG portion of stress test is negative for myocardial ischemia. Nuclear images were obtained with a rest dose of 9.37 mCi technetium 99 sestamibi and a stress dose of 30.3 mCi technetium 99 sestamibi. Nuclear images reveal a large area of reversible perfusion defect involving the anterior wall and suggestive of myocardial ischemia. There is no evidence of myocardial infarction. TID is 1.18. There is no evidence of diaphragmatic attenuation artifact. Left ventricular ejection fraction is 60%. EDV is 50 mL, ESV is 20 mL. The left ventricle is normal in size. Gated motion images show normal wall motion across all segments of the left ventricle. IMPRESSION: 1. There is a large area of reversible perfusion defect involving the anterior wall and suggestive of myocardial ischemia. 2. There is no evidence of myocardial infarction. 3. Left ventricular ejection fraction of 60%. 4. This is a paucity study. Recommend left heart catheterization. Alphonse MALDONADO D.O. DR: PALOMO/LUIS TID: [id number] RECEIPT: [id number]
== END | disposition home or self-care (01) ==
LOC: RAD 09:09
PROVIDERS: ATTEND Internal Medicine Interventional Cardiology
DX: I45.2 Bifascicular block (principal)
CPT/HCPCS: 78452; 93017; A9500; J2785

== ENCOUNTER 2020-11-03 14:56 | Emergency (ER) | payer MEDICARE, MEDICAID ==
[~2020-11-03] VITALS: Ht 149.9 cm; Wt 90.7 kg
[~2020-11-03 14:56] MED LIST changes: -LEXISCAN IV ONE
[2020-11-03 15:11] VITALS: BP 132/73
--- NOTE | 2020-11-03 15:16 | NUR ---
ARRIVAL PATIENT ARRIVED TO [facility], C/O YEAST INFECTION FOR THE PAST 2 WEEKS AND RIGHT 2ND TOE INJURY FOR THE PAST ONE WEEK, HAS ATTEMPTED TO TREAT HER YEAST INFECTION WITH OVER THE COUNTER MEDICATIONS WITH NO RELIEF, CAME TO THE ED FOR EVAL, DOCTOR MARISCAL IN THE ROOM WITH PATIENT AT THIS TIME.
--- NOTE | 2020-11-03 15:42 | ER.PDOC ---
General Chief Complaint: Female Urogenital Problems Stated Complaint: GENERAL COMPLAINT Time seen by MD: 15:20 Source: patient Exam Limitations: no limitations History of Present Illness Initial Comments This 75-year-old female comes in with a complaint of 1 a yeast infection in the vaginal labial area and the medial aspect of each thigh. She has been on antibiotics for a infection. This is dramatically made her yeast infection/irritation worse. Her second complaint is she was trimming her right second toe and accidentally clipped a little piece of the skin and broke the toenail off peeling off about one third of the nail. This is clean it is dry its not infected she is just concerned about the need of possibly being on an antibiotic again. For the toe right now, it absolutely does not need antibiotics at this point she has good local care and follow-up with Morena her PCP. Timing/Duration: getting worse, other Severity/Quality: other (itchy) Sexual Trout History: not active Allergies: Coded Allergies: ciprofloxacin (Verified Allergy, Unknown, 11/14/18) sulfamethoxazole (Verified Allergy, Unknown, 03/25/19) trimethoprim (Verified Allergy, Unknown, 03/25/19) Home Meds Active Scripts Chlorhexidine Gluconate (HIBICLENS) 118 Ml Liquid, 30 ML MM Q12H for 5 Days, #1 BOTTLE gargle and spit twice a day Prov:LUCILLE TOMPKINS MD 09/28/20 Pregabalin (LYRICA) 50 Mg Capsule, 50 MG PO BID for 30 Days, CAPSULE Prov:LUCILLE TOMPKINS MD 09/28/20 Rosuvastatin 20MG (CRESTOR 20MG) 20 Mg Tablet, 20 MG PO HS for 30 Days, TAB Prov:LUCILLE TOMPKINS MD 09/28/20 Amoxicillin/Potassium Clav (AUGMENTIN 875-125 TABLET) 1 Each Tablet, 1 EACH PO BID for 7 Days, TAB Prov:LUCILLE TOMPKINS MD 09/28/20 Ascorbic Acid (VITAMIN C) 500 Mg Capsule.er, 1 CAP PO QD for 30 Days, #30 CAP 0 Refills Prov:MANASA LANTIGUA NP 03/19/20 Potassium Chloride (KLOR-CON 10) 10 Meq Tablet.er, 10 MEQ PO DAILY24 for 3 Days, #3 TABLET 0 Refills Prov:MANASA LANTIGUA NP 03/19/20 Zinc Sulfate (ZINC SULFATE) 220 Mg Capsule, 220 MG PO DAILY for 30 Days, CAPSULE Prov:MANASA LANTIGUA DISPATCH MANAGER 03/19/20 Reported Medications Fluticasone Propionate (Allergy Relief) 50 Mcg/Actuation [place].susp, 2 SPR NA QD for 30 Days, MILLILITER 0 Refills 03/17/20 Vitamin D3/Menaquinone 7 (D3 + K2 DOTS 1,000 UNITS TAB) 1 Each Tab.rapdis, 1 TAB PO QD for 30 Days, #30 TAB 0 Refills 03/17/20 Montelukast Sodium (MONTELUKAST SODIUM) 10 Mg Tablet, 1 TAB PO DAILY, #30 TAB 5 Refills 03/17/20 Losartan Potassium (LOSARTAN POTASSIUM) 50 Mg Tablet, 1 TAB PO DAILY, #30 TAB 5 Refills 03/17/20 Esomeprazole Magnesium (NEXIUM) 40 Mg Capsule.dr, 1 CAP PO DAILY, #30 CAP 5 Refills 03/17/20 Chlorthalidone (CHLORTHALIDONE) 25 Mg Tablet, 1 TAB PO DAILY, #30 TAB 5 Refills 03/17/20 Aspirin (ASPIRIN EC) 81 Mg Tablet.dr, 1 TAB PO DAILY, #30 TAB 3 Refills 03/17/20 Tramadol Hcl (TRAMADOL HCL) 50 Mg Tablet, 1 TAB PO Q8HR PRN for PAIN 1 - 3, #90 TAB 03/17/20 Buspirone Hcl (BUSPIRONE HCL) 10 Mg Tablet, 1 TAB PO BID, #60 TAB 1 Refill 03/17/20 Loratadine (LORATADINE) 10 Mg Tab.rapdis, 1 TAB PO QD for allergy symptoms for 30 Days, #30 TAB 0 Refills 03/17/20 Apixaban (Eliquis) 5 Mg Tablet, 5 MG PO BID, TABLET 03/17/20 Isosorbide Mononitrate (ISOSORBIDE MONONITRATE ER) 30 Mg Tab.er.24h, 1 TAB PO DAILY, #30 TAB 5 Refills 03/17/20 Duloxetine Hcl (CYMBALTA) 30 Mg Capsule.dr, 3 CAP PO DAILY, #30 CAP 5 Refills 03/17/20 Past Medical History Medical History: cardiac problems, diabetes, high cholesterol, hypertension, thyroid disease Surgical History: back, cholecystectomy, gastric bypass, other Social History Smoking: non-smoker Alcohol Use: none Drug Use: none Review of Systems All Other Systems: Reviewed and Negative Physical Exam General Appearance: No Apparent Distress, WD/WN EENT: eyes nml inspection, nml ENT inspection, pharynx nml Neck: nml inspection, non-tender Cardiovascular/Respiratory: Regular Rate, Rhythm, No M/R/G, Normal Peripheral Pulses, No JVD, Normal Breath Sounds, No Respiratory Distress Abdomen: Normal Bowel Sounds, Non Tender, Soft, No Organomegaly, No Pulsatile Mass Back: nml inspection Pelvic: Other (external erythema c/w yeast infection) Extremities: Normal Range of Motion, Non-Tender, Normal Inspection, No Pedal Edema, No Calf Tenderness, Normal Capillary Refill, Other (rt second toe with a small lac at the lat aspect of the nail involving the superficial skin. The nail split and the lateral 1/3 broke off) Results/Orders Results/Orders Vital Signs Date Time Temp Pulse Resp B/P (MAP) Pulse Ox O2 Delivery O2 Flow Rate FiO2 11/03/20 15:11 98.2 73 16 11/03/20 15:11 98.2 73 16 91 11/03/20 15:11 98.2 73 16 132/73 (92) 91 Room Air ER DEPART Departure Time of Disposition: 15:58 Disposition: 01 HOME / SELF CARE / HOMELESS Impression: Primary Impression: Yeast dermatitis Additional Impression: Vaginal yeast infection Condition: Improved Patient Instructions: Fluconazole tablets, Vaginitis, [id number] Referrals: MORENA GALDAMEZ DISPATCH MANAGER (PCP) PRIMARY CARE PROVIDER Additional Instructions: YOU WERE SEEN IN THE ER TODAY BY DR MARISCAL. AT HOME DIFLUCAN 150MG 1 TAB 1 TIME. FOLLOW UP WITH YOUR PRIMARY CARE DOCTOR. PLEASE RETURN TO THE ER IF YOUR SYMPTOMS WORSEN. Comments diflucan 150mg one po x one Duration or Time Spent with Pa: 15m Problem Qualifiers SHELBY MARISCAL MD Nov 03, 2020 15:42
[2020-11-09] MEDS ORDERED: LEVO150T6 PO (13:42)
[2020-11-09] MEDS ORDERED: LUBI24CA7 PO (13:42)
[2020-11-09] MEDS ORDERED: DULA3PEN SQ (13:42)
[2020-11-09] MEDS ORDERED: FLEC100T PO (13:42)
[2020-11-09] MEDS ORDERED: INSU100V35 SQ (13:42)
[2020-11-09] MEDS ORDERED: ICOS1CAP PO (13:42)
[2020-11-09] MEDS ORDERED: POTA20TA14 PO (13:42)
[2020-11-09] MEDS ORDERED: POTA10TA31 PO (13:42)
[2020-11-09] MEDS ORDERED: PRAV10TA2 PO (13:42)
== END 2020-11-03 15:36 | disposition home or self-care (01) ==
LOC: ER 14:56
DX: B37.3 Candidiasis of vulva and vagina (principal); B37.2 Candidiasis of skin and nail; I10 Essential (primary) hypertension; E78.00 Pure hypercholesterolemia, unspecified; E11.9 Type 2 diabetes mellitus without complications; Z79.01 Long term (current) use of anticoagulants; Z79.82 Long term (current) use of aspirin; Z79.899 Other long term (current) drug therapy; Z88.1 Allergy status to other antibiotic agents; Z88.2 Allergy status to sulfonamides; Z90.49 Acquired absence of other specified parts of digestive tract; Z98.84 Bariatric surgery status
CPT/HCPCS: 99283

== ENCOUNTER → 2020-11-09 | Outpatient (CLI) | payer MEDICARE, MEDICAID ==
[~2020-11-09] MED LIST changes: +DULA3PEN SQ; +FLEC100T PO; +ICOS1CAP PO; +INSU100V35 SQ; +LUBI24CA7 PO; +POTA10TA31 PO; +POTA20TA14 PO; +PRAV10TA2 PO
--- NOTE | 2020-11-10 23:53 | PRP ---
DATE OF PROCEDURE: 11/09/2020 DICTATOR NAME: PERRY BERUMEN DO ARTERIAL DOPPLER ULTRASOUND OF THE BILATERAL LOWER EXTREMITIES INDICATION: Intermittent claudication. RIGHT LOWER EXTREMITY: The right common femoral artery has a peak systolic velocity of 124 cm per second with triphasic waveforms seen. The right profunda femoris artery has a peak systolic velocity of 86 cm per second with triphasic waveforms visualized. The right superficial femoral artery has triphasic waveforms seen throughout with a peak systolic velocity of 94 cm per second. The right popliteal artery has triphasic waveforms seen throughout with a peak systolic velocity of 77 cm per second. The right posterior tibial artery has triphasic waveforms seen throughout with a peak systolic velocity of 82 cm per second. The right anterior tibial artery has triphasic waveforms seen throughout with a peak systolic velocity of 67 cm per second. The right lower extremity ankle-brachial index is 1. An incidental finding of a right Young cyst measuring 4.3 x 1.3 x 2.2 cm is visualized adjacent to the right popliteal vessels. LEFT LOWER EXTREMITY: The left common femoral artery has a peak systolic velocity of 98 cm per second with triphasic waveforms seen. The left profunda femoris artery has a peak systolic velocity of 80 cm per second with triphasic waveforms visualized. The left superficial femoral artery has triphasic waveforms seen throughout with a peak systolic velocity of 84 cm per second. The left popliteal artery has a peak systolic velocity of 72 cm per second with triphasic waveforms seen throughout. The left posterior tibial artery has triphasic waveforms seen throughout with a peak systolic velocity of 66 cm per second. The left anterior tibial artery has triphasic waveforms seen throughout with a peak systolic velocity of 67 cm per second. The left lower extremity ankle-brachial index is 1.2. An incidental finding of a Young cyst measuring 3.5 x 0.7 x 2.5 cm is visualized adjacent to the left popliteal vessels. IMPRESSION: 1. There is no evidence of hemodynamically significant stenosis in the right lower extremity. 2. There is no evidence of hemodynamically significant stenosis in the left lower extremity. 3. Young cyst is visualized adjacent to the bilateral popliteal vessels. 4. Bilateral ABIs are noted above. Alphonse MALDONADO D.O. DR: EL GARCIAD: [id number] RECEIPT: [id number]
== END | disposition home or self-care (01) ==
LOC: RAD 12:54
PROVIDERS: ATTEND Nurse Practitioner Family
DX: M71.22 Synovial cyst of popliteal space [Baker], left knee (principal); M71.21 Synovial cyst of popliteal space [Baker], right knee; I70.213 Atherosclerosis of native arteries of extremities with intermittent claudication, bilateral legs
CPT/HCPCS: 93922; 93925

== ENCOUNTER 2020-11-11 12:54 | Day surgery (SDC) | payer MEDICARE, MEDICAID ==
[2020-11-09 13:50] VITALS: BP 106/73
[2020-11-09 16:54] LABS: BASOPHIL # 0.1 10^3/uL (0.0-0.1); BASOPHIL % 0.6 % (0.0-0.2); EOSINOPHIL # 0.3 10^3/uL (0.0-0.2); EOSINOPHIL % 4.1 % (0.0-5.0); LYMPHOCYTES # 2.21 10^3/uL1 (1.0-4.8); MEAN CORP HGB 29.3 pg (26-34); MONOCYTES # 0.5 10^3/uL (0.3-0.8); MONOCYTES % 6.3 % (5.0-12.0); NEUTROPHIL # 4.8 10^3/uL (1.8-7.7); PLATELET COUNT 288 10^3/uL (150-400); RED CELL DISTRIBUTION WIDTH 13.3 % (11.5-14.5)
[2020-11-09 17:06] LABS: CALCIUM 9.6 mg/dL (8.4-10.5); CARBON DIOXIDE 27.7 mmol/L (20.0-32)
--- NOTE | 2020-11-09 17:06 | PCM.EKG ---
[facility] Test Date: 2020-11-09 Test Time: 13:59:27 Pat Name: ERICH LAI Department: Room: Gender: F Health And Safety Director: JOHN : 1945 Requested By: PERRY BERUMEN Order Number: [id number] Reading MD: Measurements Intervals [place] Rate: 67 P: 83 LA: 222 QRS: -70 QRSD: 110 T: 81 QT: 430 QTc: 454 Interpretive Statements Sinus rhythm with 1st degree AV block Left axis deviation Nonspecific ST and T wave abnormality Compared to ECG 09/27/2020 17:56:13 First degree AV block now present Left-axis deviation now present ST (T wave) deviation now present Left anterior fascicular block no longer present Prolonged QT interval no longer present Please click the below link to view image of tracing.
[~2020-11-11] VITALS: Ht 149.9 cm; Wt 92.5 kg
[2020-11-11] VITALS (10 sets, daily range): BP systolic 95–139; BP diastolic 47–87
[~2020-11-11 12:54] MED LIST changes: +NS 1000ML 1,000 ML IV SCH; +NS 1000ML 1,000 ML ONE; +SUBLIMAZE ONE; +VERSED ONE; +XYLOCAINE ONE
--- NOTE | 2020-11-11 21:45 | CCRH ---
DATE OF SERVICE: 11/11/2020 DICTATOR NAME: PERRY BERUMEN CARDIAC CATHETERIZATION REPORT INDICATIONS: Abnormal cardiac stress test. HISTORY: This is a 75-year-old female who was seen in the outpatient setting initially and underwent cardiac ischemic workup, which was noted to be abnormal. She was then set up for cardiac catheterization after informed consents were obtained. PROCEDURES PERFORMED: 1. Selective coronary angiography. 2. Left ventriculography. 3. Hemostasis established using a 6-Libyan Mynx control. DESCRIPTION OF PROCEDURE: Access was obtained using a 4-Libyan micropuncture kit to cannulate the right common femoral artery. The 4-Libyan sheath was then upsized to a 6-Libyan regular short sheath. Diagnostic angiography was then carried out using a Greg left catheter to engage the left main. The left main was noted to be angiographically normal. It bifurcates into left anterior descending artery and the left circumflex artery. The left anterior descending artery is noted to have a mid vessel 20-30% lesion. It runs in the interventricular groove, wrapping around the apex to form a type 3 LAD. It is noted to have mild luminal irregularities. It gives off a first diagonal branch that is noted to be of large caliber, which she also has mild luminal irregularities. GIO 2 flow is visualized in the LAD suggestive of microvascular disease. The left circumflex artery is noted to be codominant and with mild luminal irregularities. It gives off 2 obtuse marginal branches that are noted to have mild luminal irregularities. It is a tortuous vessel. GIO 2 flow is visualized again in the left circumflex artery also suggestive of microvascular disease. The Greg left catheter was then exchanged for a Greg right catheter, which was used to cross the aortic valve into the left ventricle. Left ventriculography was performed. LVEF was noted to be 60%. LVEDP was noted to be 10. Upon pullback of the Greg right catheter, there was no gradient across the aortic valve. The Greg right catheter was then used to engage the RCA. RCA angiography showed a dominant RCA with mild luminal irregularities. The RCA bifurcates distally to an RPL and RPDA branch, both medium to small caliber size vessels and both with mild luminal irregularities. GIO 2 flow is visualized in the RCA also suggestive of microvascular disease. The Greg right catheter was then taken out and hemostasis was established using a 6-Libyan Mynx control. The patient left the director geophysical laboratory in stable condition. There were no complications. IMPRESSION: 1. Nonobstructive coronary artery disease involving the epicardial vessels. 2. Selective coronary angiography. 3. Left ventriculography. 4. Left ventricular ejection fraction of 60%. 5. Left ventricular end-diastolic pressure of 10. 6. GIO 2 flow visualized in the epicardial vessels suggestive of microvascular disease. 7. Hemostasis established using a 6-Libyan Mynx control. RECOMMENDATIONS: No coronary intervention is necessary at this time. Aggressive medication management with statin therapy is recommended. Lifestyle modification factors have been advised. She will be discharged home today to follow up with me in the office in two to three weeks. Alphonse MALDONADO D.O. DR: MADHURI KINCAID: [id number] RECEIPT: [id number]
== END 2020-11-11 18:20 | disposition home or self-care (01) ==
LOC: CCL 12:54
PROVIDERS: ATTEND Internal Medicine Interventional Cardiology
DX: I25.10 Atherosclerotic heart disease of native coronary artery without angina pectoris (principal); I11.0 Hypertensive heart disease with heart failure; I50.32 Chronic diastolic (congestive) heart failure; E13.21 Other specified diabetes mellitus with diabetic nephropathy; E03.9 Hypothyroidism, unspecified; E78.5 Hyperlipidemia, unspecified; E78.00 Pure hypercholesterolemia, unspecified; I48.0 Paroxysmal atrial fibrillation; F34.1 Dysthymic disorder; E66.01 Morbid (severe) obesity due to excess calories; I70.213 Atherosclerosis of native arteries of extremities with intermittent claudication, bilateral legs; K21.9 Gastro-esophageal reflux disease without esophagitis; I87.2 Venous insufficiency (chronic) (peripheral); F32.9 Major depressive disorder, single episode, unspecified; Z90.710 Acquired absence of both cervix and uterus; Z90.49 Acquired absence of other specified parts of digestive tract; Z98.890 Other specified postprocedural states; Z79.899 Other long term (current) drug therapy; Z98.84 Bariatric surgery status; Z83.3 Family history of diabetes mellitus; Z82.49 Family history of ischemic heart disease and other diseases of the circulatory system; Z80.1 Family history of malignant neoplasm of trachea, bronchus and lung; Z88.8 Allergy status to other drugs, medicaments and biological substances; Z79.01 Long term (current) use of anticoagulants; Z68.41 Body mass index [BMI] 40.0-44.9, adult; Z79.82 Long term (current) use of aspirin
CPT/HCPCS: 36415; 80053; 82948; 85025; 85610; 85730; 93005; 93458; 99152; C1760; C1769; C1894 ×2; J1644; J2250; J3010; J7030; Q9967

== ENCOUNTER 2020-11-14 09:30 | Emergency (ER) | payer MEDICARE, MEDICAID ==
[~2020-11-14] VITALS: Ht 149.9 cm; Wt 90.7 kg
[~2020-11-14 09:30] MED LIST changes: -NS 1000ML 1,000 ML IV SCH; -NS 1000ML 1,000 ML ONE; -SUBLIMAZE ONE; -VERSED ONE; -XYLOCAINE ONE
--- NOTE | 2020-11-14 09:34 | NUR ---
ARRIVAL PT ARRIVED TO ED WITH C/O SNEEZING, COUGHING AND SORE THROAT SINCE SUNDAY. PT STATES " I HAD A HEART CATH ON SUNDAY AND SOON THEY TOOK ME BACK TO MY DAYSURGERY ROOM I STARTED SNEEZING AND IT HAS JUST CONTINUES". BEDSIDE MONITORS APPLIED. VITAL SIGNS STABLE. BED IN LOW LOCKED POSITION.
[2020-11-14 09:39] VITALS: BP 130/47
[2020-11-14 09:46] VITALS: BP 130/47
--- NOTE | 2020-11-14 09:59 | ER.PDOC ---
General Chief Complaint: Sore Throat Stated Complaint: SORE THROAT,CHILLS Time seen by MD: 09:50 Source: patient Exam Limitations: no limitations History of Present Illness Initial Comments 75-year-old female presents with complaint of sneezing for 4 days. She also complains of or sore throat. Patient states she had a heart cath 4 days ago and has been sneezing ever since. Patient states she thinks she caught something in the surgical suite. She denies fevers but states possibly having chills. She denies any headache nausea vomiting abdominal pain or urinary symptoms. Allergies: Coded Allergies: ciprofloxacin (Verified Allergy, Unknown, 11/09/20) sulfamethoxazole (Verified Allergy, Unknown, 11/09/20) trimethoprim (Verified Allergy, Unknown, 11/09/20) Home Meds Active Scripts Chlorhexidine Gluconate (HIBICLENS) 118 Ml Liquid, 30 ML MM Q12H for 5 Days, #1 BOTTLE gargle and spit twice a day Prov:LUCILLE TOMPKINS MD 09/28/20 Pregabalin (LYRICA) 50 Mg Capsule, 50 MG PO BID for 30 Days, CAPSULE Prov:LUCILLE TOMPKINS MD 09/28/20 Ascorbic Acid (VITAMIN C) 500 Mg Capsule.er, 1 CAP PO QD for 30 Days, #30 CAP 0 Refills Prov:MANASA LANTIGUA NP 03/19/20 Zinc Sulfate (ZINC SULFATE) 220 Mg Capsule, 220 MG PO DAILY for 30 Days, CAPSULE Prov:MANASA LANTIGUA NP 03/19/20 Reported Medications Insulin Degludec (Tresiba) 100 Unit/Ml Vial, 44 UNITS SQ DAILY24 11/09/20 Flecainide Acetate (FLECAINIDE ACETATE) 100 Mg Tablet, 0.5 TAB PO BID, #60 TAB 5 Refills 11/09/20 Pravastatin Sodium (PRAVASTATIN SODIUM) 10 Mg Tablet, 1 TAB PO HS, #90 TAB 1 Refill 11/09/20 Icosapent Ethyl (VASCEPA) 1 Gm Capsule, 2 CAP PO BID for 30 Days, #120 CAP 0 Refills 11/09/20 Lubiprostone (AMITIZA) 24 Mcg Capsule, 1 CAP PO BID for 30 Days, #60 CAP 0 Refills 11/09/20 Potassium Chloride (POTASSIUM CHLORIDE) 20 Meq Tab.er.prt, 1 TAB PO DAILY, #30 TAB 5 Refills 11/09/20 Potassium Chloride (POTASSIUM CHLORIDE) 10 Meq Tab.er.prt, 1 TAB PO HS, #90 TAB 1 Refill 11/09/20 Levothyroxine Sodium (LEVOTHYROXINE SODIUM) 150 Mcg Tablet, 1 TAB PO DAILY, #30 TAB 5 Refills 11/09/20 Dulaglutide (Trulicity) 3 Mg/0.5 Ml Pen.injctr, 3 MG SQ Q7D 11/09/20 Vitamin D3/Menaquinone 7 (D3 + K2 DOTS 1,000 UNITS TAB) 1 Each Tab.rapdis, 1 TAB PO QD for 30 Days, #30 TAB 0 Refills 03/17/20 Montelukast Sodium (MONTELUKAST SODIUM) 10 Mg Tablet, 1 TAB PO DAILY, #30 TAB 5 Refills 03/17/20 Losartan Potassium (LOSARTAN POTASSIUM) 50 Mg Tablet, 1 TAB PO DAILY, #30 TAB 5 Refills 03/17/20 Esomeprazole Magnesium (NEXIUM) 40 Mg Capsule.dr, 1 CAP PO DAILY, #30 CAP 5 Refills 03/17/20 Chlorthalidone (CHLORTHALIDONE) 25 Mg Tablet, 1 TAB PO DAILY, #30 TAB 5 Refills 03/17/20 Aspirin (ASPIRIN EC) 81 Mg Tablet.dr, 1 TAB PO DAILY, #30 TAB 3 Refills 03/17/20 Buspirone Hcl (BUSPIRONE HCL) 10 Mg Tablet, 1 TAB PO DAILY24, #60 TAB 1 Refill 03/17/20 Loratadine (LORATADINE) 10 Mg Tab.rapdis, 1 TAB PO QD PRN for ALLERGY SYMPTOMS for 30 Days, #30 TAB 0 Refills 03/17/20 Apixaban (Eliquis) 5 Mg Tablet, 5 MG PO BID, TABLET 03/17/20 Isosorbide Mononitrate (ISOSORBIDE MONONITRATE ER) 30 Mg Tab.er.24h, 1 TAB PO DAILY, #30 TAB 5 Refills 03/17/20 Duloxetine Hcl (CYMBALTA) 30 Mg Capsule.dr, 3 CAP PO DAILY, #30 CAP 5 Refills 03/17/20 Discontinued Reported Medications Fluticasone Propionate (Allergy Relief) 50 Mcg/Actuation [place].susp, 2 SPR NA QD for 30 Days, MILLILITER 0 Refills 03/17/20 Tramadol Hcl (TRAMADOL HCL) 50 Mg Tablet, 1 TAB PO Q8HR PRN for PAIN 1 - 3, #90 TAB 03/17/20 Discontinued Scripts Rosuvastatin 20MG (CRESTOR 20MG) 20 Mg Tablet, 20 MG PO HS for 30 Days, TAB Prov:LUCILLE TOMPKINS MD 09/28/20 Amoxicillin/Potassium Clav (AUGMENTIN 875-125 TABLET) 1 Each Tablet, 1 EACH PO BID for 7 Days, TAB Prov:LUCILLE TOMPKINS MD 09/28/20 Potassium Chloride (KLOR-CON 10) 10 Meq Tablet.er, 10 MEQ PO DAILY24 for 3 Days, #3 TABLET 0 Refills Prov:MANASA LANTIGUA READING EFFICIENCY COURSE DIRECTOR 03/19/20 Past Medical History Medical History: arrhythmia, congestive heart failure, hypertension, thyroid disease Surgical History: cardiac cath, back, other Social History Alcohol Use: none Drug Use: none Eyes: no symptoms reported Ears: no symptoms reported Nose: no symptoms reported Throat: pain Respiratory: other (sneezing) Gastrointestinal: no symptoms reported Musculoskeletal: no symptoms reported Skin: no symptoms reported Neurological: no symptoms reported Physical Exam General Appearance: alert, no distress Head/Neck: head nml inspection, neck nml inspection Eyes: eyes nml inspection, PERRL Throat: pharynx nml, voice nml, no airway problems Respiratory: no resp. distress, lungs clear CVS: reg. rate & rhythm, heart sounds nml Abdomen: non-tender Extremities: non-tender, ROM nml Skin Exam: Warm/Dry NEURO/PSYCH: oriented X3, mood/effect nml Results/Orders Results/Orders Orders - CHUCKY CRUZ MD Strep Screen (11/14/20 09:56) Vital Signs Date Time Temp Pulse Resp B/P (MAP) Pulse Ox O2 Delivery O2 Flow Rate FiO2 11/14/20 10:19 97.9 56 18 113/74 (87) 94 Room Air 11/14/20 09:46 97.9 64 18 130/47 (74) 94 Room Air 11/14/20 09:39 97.9 64 18 94 11/14/20 09:39 97.9 64 18 130/47 (74) 94 Room Air 11/14/20 09:39 97.9 64 18 Laboratory Tests Test 11/14/20 10:00 Group A Streptococcus Screen NEGATIVE (NEGATIVE) ER DEPART Departure Time of Disposition: : Disposition: 01 HOME / SELF CARE / HOMELESS Impression: Primary Impression: URI (upper respiratory infection) Condition: Stable Patient Instructions: Upper Respiratory Infection, Adult, [id number] Referrals: SHOSHANA GALDAMEZ READING EFFICIENCY COURSE DIRECTOR (PCP) PRIMARY CARE PROVIDER Duration or Time Spent with Pa: 6 min CHUCKY CRUZ MD Nov 14, 2020 09:59
[2020-11-14 10:19] VITALS: BP 113/74
== END 2020-11-14 10:24 | disposition home or self-care (01) ==
LOC: ER 09:30
DX: J06.9 Acute upper respiratory infection, unspecified (principal); E07.9 Disorder of thyroid, unspecified; I11.0 Hypertensive heart disease with heart failure; I50.9 Heart failure, unspecified; Z79.01 Long term (current) use of anticoagulants; Z79.82 Long term (current) use of aspirin; Z79.899 Other long term (current) drug therapy; Z88.1 Allergy status to other antibiotic agents; Z88.2 Allergy status to sulfonamides
CPT/HCPCS: 87070; 87880; 99283